=== PATIENT | female | born 1960 | race Caucasian/White ===

== ENCOUNTER 2020-05-02 09:01 | Outpatient (REF) | payer OTHER, SELFPAY ==
[2020-05-02 12:36] LABS: Alanine Aminotransferase 20 U/L (0-31); Albumin Level 4.2 g/dL (3.5-5.0); Alkaline Phosphatase 72 U/L (39-117); Anion Gap 11 (12-20); Aspartate Amino Transferase 18 U/L (5-31); Bilirubin Total 0.5 mg/dL (0.0-1.0); Blood Urea Nitrogen 16 mg/dL (9-16); Calcium 9.6 mg/dL (8.4-10.2); Carbon Dioxide 30 mmol/L (22-29); Chloride 103 mmol/L (96-108); Cholesterol 173 mg/dL; Estimated Glomerular Filt Rate > 60; Glucose Fasting 103 mg/dL (60-99); HDL Cholesterol 42 mg/dL; LDL Cholesterol Calculated 108 mg/dl; Potassium 5.1 mmol/l (3.3-5.1); Sodium 139 mmol/L (135-145); Total Protein 7.8 g/dL (6.5-8.0); Triglycerides 115 mg/dL
[2020-05-02 12:50] LABS: Thyroid Stimulating Hormone 1.82 uIU/mL (0.32-4.0)
== END 2020-05-02 09:02 | disposition home or self-care (01) ==
LOC: HO.WFDLDS 09:01
PROVIDERS: PCP Family Medicine; Visit Provider Family Medicine
DX: Z00.00 Encounter for general adult medical examination without abnormal findings (principal); F32.9 Major depressive disorder, single episode, unspecified; F41.9 Anxiety disorder, unspecified; K21.9 Gastro-esophageal reflux disease without esophagitis
CPT/HCPCS: 80053; 80061; 84443

== ENCOUNTER 2020-05-23 09:03 | Outpatient (REF) | payer OTHER, SELFPAY ==
--- NOTE | 2020-05-23 09:08 | MM_ITS ---
EXAMINATION: BONE DENSITOMETRY CLINICAL INDICATION: Encounter for screening for osteoporosis. COMPARISON: None (current study represents initial baseline exam). TECHNIQUE: Using a [employer] DXA System (software version: 13.1) manufactured by [employer], dual-energy x-ray absorptiometry was performed of the lumbar spine and left hip. The images are of good technical quality. Summary results are attached. FINDINGS: AP SPINE L2-L4 (excluding L1): The data of L1-L4 has been changed to exclude the L1 vertebral body, because degenerative changes at this level may cause overestimation of lumbar spine density. BMD 1.086 g/cm2, Z-score -0.6, T-score -1.0, normal. LEFT FEMUR, NECK: BMD 0.807 g/cm2, Z-score -1.0, T-score -1.7, osteopenia. LEFT FEMUR, TOTAL: BMD 1.010 g/cm2, Z-score 0.3, T-score 0.0, normal. IDENTIFIED RISK FACTORS: Menopause. HISTORY OF FRACTURE: None listed. MEDICATIONS: Calcium supplement and/or multivitamin. Vitamin D. MM/XR DEXA axial skeleton IMPRESSION: 1. DIAGNOSIS: Osteopenia based on the lowest T-score value of -1.7 in the femoral neck applying World Health Organization criteria. 2. 10-YEAR FRACTURE RISK PREDICTION, FRAX: Major osteoporotic fracture (clinical spine, forearm, hip or shoulder) 8.6%. Hip fracture 0.9%. 3. Treatment Recommendations: NOF guidelines recommend consideration for treatment in postmenopausal women and men age 50 and older presenting with the following: -A hip or vertebral (clinical or morphometric) fracture. -T-score less than or equal to -2.5 at the femoral neck or spine after appropriate evaluation to exclude secondary causes. -Low bone mass at the hip or spine and a 10-year fracture probability by FRAX of greater than or equal to 3% for hip fracture or greater than or equal to 20% for major osteoporotic fracture based on the [place] adapted WHO algorithm. 4. Other Recommendations: All treatment decisions require clinical judgment and consideration of individual patient factors, including patient preferences, comorbidities, previous drug use, risk factors not captured in the FRAX model (e.g. frailty, falls, vitamin D deficiency, increased bone turnover, interval significant decline in bone density) and possible under or overestimation of fracture risk by FRAX. Additional medical evaluation for secondary cause of low bone mineral density may be appropriate. FUTURE SCAN RECOMMENDATION: People with diagnosed cases of osteoporosis or at high risk for fracture should have regular bone mineral density tests. For patients eligible for Medicare, routine testing is allowed once every 2 years. The testing frequency can be increased to one year for patients who have rapidly progressing disease, those who are receiving or discontinuing medical therapy to restore bone mass, or have additional risk factors.
== END 2020-05-23 09:04 | disposition home or self-care (01) ==
LOC: HO.MAMMO 09:03
PROVIDERS: PCP Family Medicine; Visit Provider Family Medicine
DX: Z13.820 Encounter for screening for osteoporosis (principal); M85.88 Other specified disorders of bone density and structure, other site
CPT/HCPCS: 77080

== ENCOUNTER 2020-10-02 10:54 | Outpatient (REF) | payer OTHER, SELFPAY ==
[2020-10-02 13:33] LABS: MANUAL DIFF FLAG NO
[2020-10-02 13:35] LABS: Basophils Absolute Auto 0.1 X10*3/uL (0.0-0.2); Basophils Percent Auto 0.7 % (0-2); Eosinophils Absolute Auto 0.2 X10*3/uL (0.0-0.4); Eosinophils Percent Auto 2.2 % (0-4); Hematocrit 43.5 % (37-47); Hemoglobin 13.9 g/dl (12.0-16.0); Imm Gran Abs Auto 0.03 X10*3/uL (0.00-0.03); Imm Gran Pct Auto 0.3 % (0.0-0.4); Lymphocytes Absolute Auto 1.9 X10*3/uL (1.2-4.9); Lymphocytes Percent Auto 21.7 % (20-40); Mean Corpuscular Hemoglobin 27.9 pg (27.0-33.0); Mean Corpuscular Volume 87.2 fL (80-98); Mean Platelet Volume 9.4 fL (9.4-12.3); Monocytes Percent Auto 11.2 % (2-11); Neutrophils Absolute Auto 5.6 X10*3/uL (2.0-8.3); Neutrophils Percent Auto 63.9 % (45-73); Platelet Count 434 X10*3/uL (160-400); Red Blood Count 4.99 X10*6/uL (4.20-5.50); Red Cell Distribution Width 14.6 % (11.0-16.0); White Blood Count 8.7 X10*3/uL (4.8-10.8)
[2020-10-02 14:27] LABS: Alanine Aminotransferase 28 U/L (0-31); Albumin Level 4.3 g/dL (3.5-5.0); Alkaline Phosphatase 76 U/L (39-117); Anion Gap 11 (12-20); Aspartate Amino Transferase 20 U/L (5-31); Bilirubin Total 0.5 mg/dL (0.0-1.0); Blood Urea Nitrogen 12 mg/dL (9-16); Calcium 10.1 mg/dL (8.4-10.2); Carbon Dioxide 31 mmol/L (22-29); Chloride 103 mmol/L (96-108); Estimated Glomerular Filt Rate > 60; Glucose Random 93 mg/dL (60-115); Potassium 5.2 mmol/L (3.3-5.1); Sodium 140 mmol/L (135-145); Total Protein 7.9 g/dL (6.5-8.0)
[2020-10-02 14:36] LABS: TSH reflex Free T4 1.28 uIU/mL (0.32-4.0)
== END 2020-10-02 10:55 | disposition home or self-care (01) ==
LOC: HO.WFDLDS 10:54
PROVIDERS: Visit Provider Family Medicine
DX: Z00.00 Encounter for general adult medical examination without abnormal findings (principal); R53.83 Other fatigue
CPT/HCPCS: 36415; 80053; 84443; 85025

== ENCOUNTER 2020-11-20 08:00 | Outpatient (RCR) | payer OTHER, SELFPAY ==
--- NOTE | 2020-11-02 09:41 | MHC.PT.EP ---
[facility] [place] [facility] [place] [facility] [place] [address] Ernesto Gibbs [address] [phone] F: [phone] F: [phone] F: [phone] F: [phone] Physical Therapy Plan of Care Date of Evaluation: Date of Surgery: Diagnosis: vertigo Assessment: The patient was negative for BPPV. She had a normal VOR, and she had fairly normal balance. The patient has painful cervical mobility, and dizziness with cervical movement. She has poor sitting posture, and she spends a great amount of time at her computer desk. The patient will benefit from posture retraining, posture strengthening, and likely some manual work to decrease sub occipital tightness. Frequency and Duration: The patient will be seen 2x/week x 4 weeks. Short Term Goals: 2 weeks 1.Pt to able to demonstrate proper sitting posture with the use of a lumbar roll to decrease aggravating factors. 2.Pt to be able to demonstrate proper posture for common leisure activities such as crocheting and phone/tablet use. 3.For the patient to demonstrate proper upright sitting posture with use of the lumbar roll to improve compliance and carryover. Keeper Head Goals: 1. Pt to be able to return to normal PLOF without limiting pain. 2. Pt to be able to return to overhead reaching without pain or limitation. 3. Pt to be able to manage her pain with selected exercise and stretching regime. Treatment Plan: Modalities to reduce pain, spasms and effusion. Manual therapy to restore motion and function. Therapeutic exercise to improve strength and flexibility. Neuromuscular re-education for posture and balance. Therapeutic activities to return to functional activities of daily living. Electronically signed by: Mishel Morris PT DPT Please sign and return to therapist. Thank you for your referral.
== END 2020-11-20 14:00 | disposition home or self-care (01) ==
LOC: HO.PT 08:00
PROVIDERS: PCP Family Medicine; Visit Provider Family Medicine
DX: R42 Dizziness and giddiness (principal)
CPT/HCPCS: 97110; 97112; 97140; 97162

== ENCOUNTER 2022-01-16 08:56 | Outpatient (REF) | payer OTHER, SELFPAY ==
[2022-01-16 11:46] LABS: Hemoglobin 13.8 g/dl (12.0-16.0); Mean Corpuscular HGB Conc 32.1 g/dl (31.0-35.0); Mean Corpuscular Hemoglobin 27.7 pg (27.0-33.0); Mean Corpuscular Volume 86.2 fL (80.0-98.0); Mean Platelet Volume 9.5 fL (9.4-12.3); Platelet Count 453 X10*3/uL (160-400); Red Blood Count 4.99 X10*6/uL (4.20-5.50); Red Cell Distribution Width 14.8 % (11.0-16.0); White Blood Count 8.4 X10*3/uL (4.8-10.8)
[2022-01-16 12:25] LABS: Alanine Aminotransferase 20 U/L (0-31); Albumin Level 4.2 g/dL (3.5-5.0); Alkaline Phosphatase 76 U/L (39-117); Anion Gap 16 (12-20); Aspartate Amino Transferase 18 U/L (5-31); Bilirubin Total 0.5 mg/dL (0.0-1.0); Blood Urea Nitrogen 23 mg/dL (9-16); Calcium 9.5 mg/dL (8.4-10.2); Carbon Dioxide 26 mmol/L (22-29); Chloride 103 mmol/L (96-108); Cholesterol 178 mg/dL; Estimated Glomerular Filt Rate > 60; Glucose Fasting 114 mg/dL (60-99); HDL Cholesterol 41 mg/dL; LDL Cholesterol Calculated 118 mg/dl; Potassium 4.7 mmol/L (3.3-5.1); Sodium 140 mmol/L (135-145); Total Protein 7.9 g/dL (6.5-8.0); Triglycerides 95 mg/dL
[2022-01-16 12:36] LABS: TSH reflex Free T4 1.68 uIU/mL (0.32-4.0)
[2022-01-21 12:16] LABS: Vitamin D 25-OH, D2 <4 ng/mL; Vitamin D 25-OH, D3 33 ng/mL; Vitamin D 25-OH, Total 33 ng/mL (30-100)
== END 2022-01-16 08:57 | disposition home or self-care (01) ==
LOC: HO.WFDLDS 08:56
PROVIDERS: Visit Provider Hospitalist
DX: Z00.00 Encounter for general adult medical examination without abnormal findings (principal); R53.83 Other fatigue; Z13.220 Encounter for screening for lipoid disorders; Z13.29 Encounter for screening for other suspected endocrine disorder
CPT/HCPCS: 36415; 80053; 80061; 82306; 84443; 85027

== ENCOUNTER 2022-10-14 09:27 | Inpatient (IN) | payer OTHER, SELFPAY ==
--- NOTE | ~2022-10-14 | XR_ITS ---
Examination: Right elbow, right hand and right humerus. CLINICAL INDICATION: Fall and injury. COMPARISON: None. TECHNIQUE: Right elbow 2 views. Right hand 2 views. Right humerus 2 views. FINDINGS: RIGHT ELBOW: There is a comminuted fracture right proximal ulna with volar angulation. There is fracture of the radial head with anterior and lateral displacement. The humerus relatively appears intact. There is a large joint effusion. RIGHT HAND: There is no acute fracture, dislocation or subluxation right hand. Mild loss of PIP and DIP joint space is seen without periarticular spurring or loose bodies. RIGHT HUMERUS: There is no visible acute fracture or bony anomaly involving right humerus. The soft tissues are normal. XR/XR elbow RT 2V IMPRESSION: Comminuted fracture right proximal ulna. Fracture radial neck with complete anteriorly displaced right radial head. Moderate joint effusion.
--- NOTE | ~2022-10-14 | XR_ITS ---
Examination: Right elbow, right hand and right humerus. CLINICAL INDICATION: Fall and injury. COMPARISON: None. TECHNIQUE: Right elbow 2 views. Right hand 2 views. Right humerus 2 views. FINDINGS: RIGHT ELBOW: There is a comminuted fracture right proximal ulna with volar angulation. There is fracture of the radial head with anterior and lateral displacement. The humerus relatively appears intact. There is a large joint effusion. RIGHT HAND: There is no acute fracture, dislocation or subluxation right hand. Mild loss of PIP and DIP joint space is seen without periarticular spurring or loose bodies. RIGHT HUMERUS: There is no visible acute fracture or bony anomaly involving right humerus. The soft tissues are normal. XR/XR humerus RT IMPRESSION: Comminuted fracture right proximal ulna. Fracture radial neck with complete anteriorly displaced right radial head. Moderate joint effusion.
--- NOTE | ~2022-10-14 | FL_ITS ---
EXAMINATION: XR FLUOROSCOPY WITH IMAGES COMPARISON: Elbow radiographs 10/14/2022. CLINICAL INFORMATION: Right elbow open reduction internal fixation. TECHNIQUE: Fluoroscopy Supervised By: Dr. Zelalem Alfaro Fluoroscopy Time: 0.4 minutes. Cumulative Dose: 1.12 mGy. DAP: 0.0195 mGym2. Images: 3. FINDINGS: Imaging demonstrates a plate and screw overlying the ulna with a prosthetic radial head. Please see Dr. Zelalem Alfaro's report for full details. FL/FL guidance in OR IMPRESSION: Fluoroscopy and spot film imaging provided during open reduction internal fixation.
--- NOTE | ~2022-10-14 | XR_ITS ---
Examination: Right elbow, right hand and right humerus. CLINICAL INDICATION: Fall and injury. COMPARISON: None. TECHNIQUE: Right elbow 2 views. Right hand 2 views. Right humerus 2 views. FINDINGS: RIGHT ELBOW: There is a comminuted fracture right proximal ulna with volar angulation. There is fracture of the radial head with anterior and lateral displacement. The humerus relatively appears intact. There is a large joint effusion. RIGHT HAND: There is no acute fracture, dislocation or subluxation right hand. Mild loss of PIP and DIP joint space is seen without periarticular spurring or loose bodies. RIGHT HUMERUS: There is no visible acute fracture or bony anomaly involving right humerus. The soft tissues are normal. XR/XR hand RT 2V IMPRESSION: Comminuted fracture right proximal ulna. Fracture radial neck with complete anteriorly displaced right radial head. Moderate joint effusion.
--- NOTE | ~2022-10-14 | CT_ITS ---
EXAMINATION: CT ELBOW WITHOUT CONTRAST, RIGHT INDICATION: Fracture dislocation. COMPARISON: 10/14/2022 TECHNIQUE: Multidetector volumetric imaging was obtained through the right elbow without contrast. Multiplanar reformatted images in coronal and sagittal orientations were submitted. This CT examination was performed using dose optimization techniques as appropriate, variously including the following: *Automated exposure control *Adjustment of mA and/or kV according to patient size (this includes techniques or standardized protocols for targeted exams where dose is matched to indication/reason for exam; i.e. extremities or head) *Use of iterative reconstruction technique DLP: 104 mGy-cm FINDINGS: There is a transverse fracture of the proximal ulnar diaphysis occurring 2.5 cm distal to the coronoid process with vertex dorsal angulation. Articular surface appears intact. With exception of the tibia-fibula the coronoid process. Multiple small osseous fragments in the anterior aspect of the joint likely arises from a comminuted fracture at the tip of the coronoid process with involvement of the sublime tubercle. This fragment measures 2 x 0.4 x 0.3 cm and is displaced anteriorly by 2.3 cm. The radial head is markedly comminuted with dorsal dislocation of the proximal shaft fragment and displacement of the radial head fragments along the anterior aspect of the proximal shaft and lateral along the posterior margin of the capitellum. The distal humerus appears intact without an appreciable fracture. Of note, no epicondylar avulsion fractures are identified. Soft tissues are swollen around the elbow, most pronounced dorsally. Probable small joint effusion. CT/CT elbow RT wo IV con IMPRESSION: 1. Transverse fracture of the proximal ulnar diaphysis with vertex dorsal angulation. 2. Comminuted fracture coronoid process with involvement of the sublime tubercle. 3. Markedly comminuted radial head fracture with dislocation of the dominant radial head fragments and dorsal dislocation of the proximal shaft fragment.
[2022-10-14 09:30] VITALS: BP 137/62; BP 160/100; PULSE 85; PULSE 87; RESP 16; TEMP 36.6; O2SAT 93; O2SAT 96; BMI 36.7
--- NOTE | 2022-10-14 09:54 | ED.FALL ---
HPI - Fall General Chief Complaint: Fall Stated Complaint: fall, bloody nose,r arm deformity, collar, per ems Time Seen by Provider: 10/14/22 09:39 Source: patient Mode of arrival: EMS Limitations: no limitations History of Present Illness HPI Narrative: Pulled down the driveway by a dog. landed on face and right elbow. No syncope, no blood thinners, no LOC. NO vomiting. Not up to date with tetanous. complaint: fall Onset (ago): minute(s) Fall from: standing Place fall occurred: home Location of injury: face and other (right elbow) Related Data Home Medications Medication Instructions Recorded Confirmed melatonin 5 mg capsule mg PO 05/09/20 09/18/21 cholecalciferol (vitamin D3) 50 50 mcg PO DAILY 07/14/22 mcg (2,000 unit) capsule Previous Rx's Medication Instructions Recorded vitamin B comp and C no.3 15 mg-10 1 cap PO DAILY #90 caps 09/18/21 mg-50 mg-5 mg-300 mg capsule (B Complex Plus Vitamin C) fluoxetine 40 mg capsule 40 mg PO DAILY #90 caps 07/21/22 lansoprazole 30 mg capsule,delayed 30 mg PO DAILY #90 caps 09/22/22 release Allergies Allergy/AdvReac Type Severity Reaction Status Date / Time No Known Allergies Allergy Verified 10/14/22 09:40 Review of Systems Review of Systems: Yes all other systems are reviewed and are negative ENT: Comments: facial abrasion Musculoskeletal: Comments: elbow pain Neurologic: Denies Sensory deficit (Neuro) [facility] Social History Social History Housing: House Patient Tobacco Use Status: Never used Tobacco e-Cigarette/Vaping Use: Never Used Advance Directives: No Advance Directives Information Provided: Yes Cognitive needs: No Hearing needs: No Vision needs: Yes Physical Exam Vital Signs: Vital Signs: Last Vital Signs Temp 97.9 F 10/14/22 09:30 Pulse 87 10/14/22 09:30 Resp 16 10/14/22 09:30 BP 137/62 10/14/22 09:30 Pulse Ox 93 10/14/22 09:30 O2 Del Method Room Air 10/14/22 09:30 BMI result Body Mass Index 36.7 Const: Other: in pain Nutritional Appearance: average body habitus Orientation/consciousness: oriented to person and patient oriented x3 Limitations: no limitations HEENT: Other: abrasions to face, nasal bones nontender Head: Yes normal to inspection Ears: external ears normal General nose exam: Normal external nose present Mouth: Normal oral and palatal mucosa present and oropharynx normal Throat: Yes posterior oropharynx normal Eyes: General: appearance normal, both eyes and all related structures Neck: Other: supple, non tender Neck: Yes normal visual inspection Chest: Chest palpation & inspection: normal inspection of the chest Resp: Auscultation: clear to auscultation bilaterally Cardio: Jugular venous distension: no JVD Rate: regular rate Rhythm: regular rhythm Heart sounds: S1 normal heart sound present and S2 normal heart sound present GI: Inspection: Yes normal to inspection Palpation (GI): Soft to palpation, nontender and No hepatosplenomegaly present Auscultation: normal bowel sounds : General: Yes no CVA tenderness Back/Spine/Pelvis: Back: no CVA tenderness Skin: General skin exam: no rashes or lesions noted Neuro: General: oriented to person and patient oriented x3 Cranial nerves: Yes CN's II-XII intact bilaterally Motor exam (neuro): 5/5 motor strength present throughout Sensory Exam: No Sensory deficit (Neuro) Extrem: Other: right elbow swollen extremely tender Psych: Appearance: grossly normal Course Reevaluation(s) Reevaluation #1: patient with severe fracture dislocation of elbow, neurovascularly intact will admit to ortho Time: 11:17 Medical Decision Making Differential Diagnosis Differential Diagnoses: The differential diagnosis associated with the presentation includes (elbow fracture, elbow dislocation, nasal fracture) Admission/Observation Consideration of admission/observation: Escalation of care including admission/observation considered (upon arrival admission was considered) Consult Healthcare Provider Management of the patient was discussed with: [employer] Manager (orthopedic team was consulted) Independent Interpretation I performed an independent interpretation of an: Plain X-Ray (fracture dislocation of elbow) Independent Historian Clinical information obtained from an independent historian. History obtained from or confirmed by: Spouse ( gave history and discussed disposition of the patient) Discharge Plan Discharge Clinical Impression: Dislocation closed, elbow, Elbow fracture, right Patient Disposition: Admitted As Inpatient
[2022-10-14] MEDS: Morphine Sulfate 4 MG/ML CARTRIDGE IVPUSH (11:51)
[2022-10-14] MEDS: Acetaminophen 325 MG TABLET 975 MG PO (11:54)
[2022-10-14] MEDS: Diphth,Pertus(ACell),Tet Adult 0.5 ML SYRINGE IM (11:59)
[2022-10-14 12:23] LABS: MANUAL DIFF FLAG NO
[2022-10-14 12:27] LABS: Basophils Absolute Auto 0.1 X10*3/uL (0.0-0.2); Basophils Percent Auto 0.4 % (0-2); Eosinophils Percent Auto 0.2 % (0-4); Hemoglobin 13.9 g/dl (12.0-16.0); Imm Gran Abs Auto 0.08 X10*3/uL (0.00-0.03); Imm Gran Pct Auto 0.6 % (0.0-0.4); Lymphocytes Absolute Auto 0.8 X10*3/uL (1.2-4.9); Lymphocytes Percent Auto 5.7 % (20-40); Mean Corpuscular HGB Conc 30.9 g/dl (31.0-35.0); Mean Corpuscular Hemoglobin 27.9 pg (27.0-33.0); Mean Corpuscular Volume 90.4 fL (80.0-98.0); Monocytes Absolute Auto 0.6 X10*3/uL (0.1-1.2); Monocytes Percent Auto 4.5 % (2-11); Neutrophils Absolute Auto 12.4 x10*3/uL (2.0-8.3); Neutrophils Percent Auto 88.6 % (45-73); Platelet Count 355 X10*3/uL (160-400); Red Blood Count 4.98 X10*6/uL (4.20-5.50); Red Cell Distribution Width 14.8 % (11.0-16.0)
[2022-10-14 12:41] LABS: Anion Gap 12 (12-20); Blood Urea Nitrogen 21 mg/dL (9-16); Calcium 9.6 mg/dL (8.4-10.2); Carbon Dioxide 25 mmol/L (22-29); Chloride 105 mmol/L (96-108); Creatinine Clr Calc Pharmacy 97.7; Estimated Glomerular Filt Rate > 60; Glucose Random 124 mg/dL (60-115); Potassium 4.2 mmol/L (3.3-5.1); Sodium 138 mmol/L (135-145)
--- NOTE | 2022-10-14 13:29 | PHA.MEDREC ---
Pharmacy Consult ? Medication Reconciliation Pharmacy has completed the medication reconciliation. Pt was able to list her medications and doses. She states she went up on fluoxetine to 40 mg over the winter but came back down to 20 mg daily in the spring.
--- NOTE | 2022-10-14 14:29 | PM.HPOR ---
History of Present Illness History of Present Illness Date of Service: 10/14/22 <Maico Iglesias PA-C - Last Filed: 10/14/22 20:22> 10/15/22 <Zelalem Alfaro MD - Last Filed: 10/15/22 13:59> Chief complaint: Rt Elbow fx dislocation <Maico Iglesias PA-C - Last Filed: 10/14/22 20:22> Narrative: Kayla Ahn is a 62 year old female who presented to the ED with an injury to her right elbow. She states just prior to arrival she was walking her dog when the dog bolted and she fell onto her right elbow on the driveway. She states immediately she noticed deformity to the right elbow with significant pain. She was transported to the ED via EMS. While in the ED, xrays of the right elbow were performed which demonstrated a right elbow fracture/ dislocation. Orthopedics was consulted and the decision was made to admit her to the orthopedic service for surgical planning. She states she is right hand dominant. 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 She lives at home with her . PMH significant for GERD, anxiety/depression, prediabetes. While in the ED, the right elbow was reduced and placed in a posterior splint and sling. <Miaco Iglesias PA-C - Last Filed: 10/14/22 20:22> Review of Systems Review of Systems: per hpi <Maico Iglesias PA-C - Last Filed: 10/14/22 20:22> [facility] Past Medical History Medical History: Medical History (Updated 10/14/22 @ 16:13 by Lisette Hayes NP) Depression GERD (gastroesophageal reflux disease) <Maico Iglesias PA-C - Last Filed: 10/14/22 20:22> Surgical History Surgical History: Surgical History (Updated 10/15/22 @ 13:11 by Yamilet Beckford) H/O colonoscopy S/P laparoscopic surgery <Maico Iglesias PA-C - Last Filed: 10/14/22 20:22> Social History Social History: Social History Housing: House Patient Tobacco Use Status: Never used Tobacco e-Cigarette/Vaping Use: Never Used service: No Current occupational status: employed Cognitive needs: No Hearing needs: No Vision needs: Yes <Maico Iglesias PA-C - Last Filed: 10/14/22 20:22> Meds Allergies/Adverse reactions: Allergies Allergy/AdvReac Type Severity Reaction Status Date / Time No Known Allergies Allergy Verified 10/15/22 13:12 <Maico Iglesias PA-C - Last Filed: 10/14/22 20:22> Active Medications: Current Medications Acetaminophen (Acetaminophen 325 Mg Tablet) 650 mg PO Q6H PRN PRN Reason: Pain, Mild (Pain Scale 1-3) Docusate Sodium (Docusate Sodium 100 Mg Capsule) 100 mg PO BID KACIE Hydromorphone HCl (Hydromorphone Hcl 0.5 Mg/0.5 Ml Syringe) 0.25 mg IVPUSH Q4H PRN; Protocol PRN Reason: Pain, Severe (Pain Scale 7-10) Lactated Ringer's (Lr) 1,000 mls @ 100 mls/hr IVCONT .Q10H KACIE Ondansetron HCl (Ondansetron Hcl 4 Mg/2 Ml Vial) 4 mg IVPUSH Q8H PRN PRN Reason: Nausea and Vomiting Oxycodone HCl (Oxycodone Hcl Immed Release 5 Mg Tablet) 5 mg PO Q4H PRN PRN Reason: Pain, Moderate(Pain Scale 4-6) Oxycodone HCl (Oxycodone Hcl Er 10 Mg Tab.Er.12h) 10 mg PO BID KACIE Sodium Chloride (0.9 % Sodium Chloride Flush 3 Ml Syringe) 3 ml IVFLUSH QSHIFT KACIE <Maico Iglesias PA-C - Last Filed: 10/14/22 20:22> Home medications: Home Medications Medication Instructions Recorded Confirmed Last Taken Type melatonin 5 mg capsule 10 mg PO BEDTIME 05/09/20 10/15/22 10/13/22 History cholecalciferol (vitamin D3) 50 50 mcg PO DAILY 07/14/22 10/15/22 10/13/22 History mcg (2,000 unit) capsule calcium-magnesium 750 mg-465 mg 1 tab PO DAILY 10/14/22 10/15/22 10/13/22 History tablet cyanocobalamin (vitamin B-12) 1,000 mcg PO DAILY 10/14/22 10/15/22 10/13/22 History 1,000 mcg tablet (Vitamin B-12) fluoxetine 20 mg capsule 20 mg PO DAILY 10/14/22 10/15/22 Unknown History lansoprazole 30 mg capsule,delayed 30 mg PO DAILY@0630 10/14/22 10/15/22 10/14/22 History release <Maico Iglesias PA-C - Last Filed: 10/14/22 20:22> Physical Exam Vital Signs: Vital Signs: Last Vital Signs Temp 97.9 F 10/14/22 09:30 Pulse 87 10/14/22 09:30 Resp 16 10/14/22 09:30 BP 137/62 10/14/22 09:30 Pulse Ox 93 10/14/22 09:30 O2 Del Method Room Air 10/14/22 09:30 BMI result Body Mass Index 36.7 <Maico Iglesias PA-C - Last Filed: 10/14/22 20:22> Const: General: cooperative and no acute distress <Maico Iglesias PA-C - Last Filed: 10/14/22 20:22> Orientation/consciousness: patient oriented x3 <Maico Iglesias PA-C - Last Filed: 10/14/22 20:22> Resp: Effort & Inspection: normal respiratory effort and able to speak in complete sentences <Maico Iglesias PA-C - Last Filed: 10/14/22 20:22> Cardio: Peripheral pulses: Peripheral pulses 2+ throughout <Maico Iglesias PA-C - Last Filed: 10/14/22 20:22> Neuro: General: patient oriented x3 <Maico Iglesias PA-C - Last Filed: 10/14/22 20:22> Extrem: Other: Right elbow skin intact. There is significant swelling over the elbow into the forearm with tenderness along the fracture site. She has good sensation and function of the radial, median and ulnar nerve. Pulses present. <Maico Iglesias PA-C - Last Filed: 10/14/22 20:22> Results Labs Result Diagrams: 10/14/22 12:14 10/14/22 12:14 <Maico Iglesias PA-C - Last Filed: 10/14/22 20:22> Labs: Abnormal lab results 10/14/22 10/14/22 Range/Units 12:14 12:14 WBC 14.0 H (4.8-10.8) X10*3/uL MCHC 30.9 L (31.0-35.0) g/dl MPV 9.0 L (9.4-12.3) fL Immature Gran % (Auto) 0.6 H (0.0-0.4) % Neut % (Auto) 88.6 H (45-73) % Lymph % (Auto) 5.7 L (20-40) % Lymph # (Auto) 0.8 L (1.2-4.9) X10*3/uL Abs Immat Gran (auto) 0.08 H (0.00-0.03) X10*3/uL Absolute Neuts (auto) 12.4 H (2.0-8.3) x10*3/uL BUN 21 H (9-16) mg/dL Random Glucose 124 H (60-115) mg/dL H & H 10/14/22 Range/Units 12:14 Hgb 13.9 (12.0-16.0) g/dl Hct 45.0 (37.0-47.0) % All other labs normal. <SIVAN Rivero Last Filed: 10/14/22 20:22> Diagnostic results Elbow CT: report reviewed (CT elbow RT wo IV con IMPRESSION: 1. Transverse fracture of the proximal ulnar diaphysis with vertex dorsal angulation. 2. Comminuted fracture coronoid process with involvement of the sublime tubercle. 3. Markedly comminuted radial head fracture with dislocation of the dominant radial head fragme) and image reviewed <SIVAN Rivero Last Filed: 10/14/22 20:22> Assessment and Plan (1) Dislocation closed, elbow: Status: Acute <SIVAN Rivero Last Filed: 10/14/22 20:22> (2) Elbow fracture, right: Status: Acute <SIVAN Rivero Last Filed: 10/14/22 20:22> I discussed the case with Dr Alfaro who was available to meet the patient with me today at bedside and explained the extent of the injury to the patient and options available which include surgical intervention. I explained the procedure in detail along with the length of recovery and rehab course. I explained the risk, benefits and alternatives. Risk including, but not limited to infection, blood clots, bleeding, non union or malunion, instability and nerve/tissue damage to surrounding areas and need for further surgery. I answered all their questions and with their understanding they have consented to move forward with Operative Fixation of the RIght elbow . The patient will be T&S, med clearance obtained and NPO after midnight. <Maico Iglesias PA-C - Last Filed: 10/14/22 20:22> Time Spent With Patient Time: Total time managing care of this patient today ____ minutes. <Maico Iglesias PA-C - Last Filed: 10/14/22 20:22> Quality Stroke Does the patient have a stroke diagnosis?: No <Maico Iglesias PA-C - Last Filed: 10/14/22 20:22> VTE Prior VTE?: No <Maico Iglesias PA-C - Last Filed: 10/14/22 20:22> VTE Risk Level:: Surgical - moderate <Maico Iglesias PA-C - Last Filed: 10/14/22 20:22> VTE Device Contraindication: N/A - Device Ordered <Maico Iglesias PA-C - Last Filed: 10/14/22 20:22> VTE Drug Contraindication: Treatment Not Indicated <Maico Iglesias PA-C - Last Filed: 10/14/22 20:22> Procedures Date of Service Date of Service: 10/14/22 <Maico Iglesias PA-C - Last Filed: 10/14/22 20:22> 10/15/22 <Zelalem Alfaro MD - Last Filed: 10/15/22 13:59>
[2022-10-14] MEDS: Lactated Ringers 1,000 ML 100 ML IVCONT (14:45)
--- NOTE | 2022-10-14 16:04 | HO.PM.IMCN ---
History of Present Illness Data of Consult Service Date: 10/14/22 Requesting physician: Zelalem Alfaro Primary Care Provider: Leno Maurice MD Review of Systems Review of Systems: Denies any recent fever chills or decrease in appetite respiratory denies any shortness of breath coverage production cardiovascular denied chest pain gastrointestinal denies any dysphagia abdominal pain nausea vomiting or diarrhea genitourinary denies any dysuria frequency or hematuria musculoskeletal denies any joint pain or swelling neuropsych denies any weakness or seizures all other systems reviewed are negative [facility] Medical History (Updated 10/14/22 @ 16:13 by Lisette Hayes NP) Depression GERD (gastroesophageal reflux disease) Pertinent family history: No cardiac disease Surgical History (Updated 10/14/22 @ 16:14 by Lisette Hayes NP) No pertinent past surgical history Social History Housing: House Patient Tobacco Use Status: Never used Tobacco e-Cigarette/Vaping Use: Never Used Advance Directives: No Advance Directives Information Provided: Yes Cognitive needs: No Hearing needs: No Vision needs: Yes Meds Allergies Allergy/AdvReac Type Severity Reaction Status Date / Time No Known Allergies Allergy Verified 10/14/22 09:40 Active Medications: Current Medications Acetaminophen (Acetaminophen 325 Mg Tablet) 650 mg PO Q6H PRN PRN Reason: Pain, Mild (Pain Scale 1-3) Docusate Sodium (Docusate Sodium 100 Mg Capsule) 100 mg PO BID KACIE Hydromorphone HCl (Hydromorphone Hcl 0.5 Mg/0.5 Ml Syringe) 0.25 mg IVPUSH Q4H PRN; Protocol PRN Reason: Pain, Severe (Pain Scale 7-10) Lactated Ringer's (Lr) 1,000 mls @ 100 mls/hr IVCONT .Q10H KACIE Last Admin: 10/14/22 14:45 Dose: 100 mls/hr Ondansetron HCl (Ondansetron Hcl 4 Mg/2 Ml Vial) 4 mg IVPUSH Q8H PRN PRN Reason: Nausea and Vomiting Oxycodone HCl (Oxycodone Hcl Immed Release 5 Mg Tablet) 5 mg PO Q4H PRN PRN Reason: Pain, Moderate(Pain Scale 4-6) Oxycodone HCl (Oxycodone Hcl Er 10 Mg Tab.Er.12h) 10 mg PO BID [facility] Sodium Chloride (0.9 % Sodium Chloride Flush 3 Ml Syringe) 3 ml IVFLUSH QSHIFT [facility] Home Medications Medication Instructions Recorded Confirmed Last Taken Type melatonin 5 mg capsule 10 mg PO BEDTIME 05/09/20 10/14/22 10/13/22 History cholecalciferol (vitamin D3) 50 50 mcg PO DAILY 07/14/22 10/14/22 10/13/22 History mcg (2,000 unit) capsule calcium-magnesium 750 mg-465 mg 1 tab PO DAILY 10/14/22 10/14/22 10/13/22 History tablet cyanocobalamin (vitamin B-12) 1,000 mcg PO DAILY 10/14/22 10/14/22 10/13/22 History 1,000 mcg tablet (Vitamin B-12) fluoxetine 20 mg capsule 20 mg PO DAILY 10/14/22 10/14/22 Unknown History lansoprazole 30 mg capsule,delayed 30 mg PO DAILY@0630 10/14/22 10/14/22 10/14/22 History release Physical Exam Vital Signs and Narrative: Vital Signs: Last Vital Signs Temp 97.9 F 10/14/22 09:30 Pulse 87 10/14/22 09:30 Resp 16 10/14/22 09:30 BP 137/62 10/14/22 09:30 Pulse Ox 93 10/14/22 09:30 O2 Del Method Room Air 10/14/22 09:30 BMI result Body Mass Index 36.7 Appearing in no acute distress head is normocephalic atraumatic eyes pupils are PERRLA sclera is anicteric mouth throat mucous membranes are intact and moist neck is supple no lymphadenopathy, no JVD noted lung sounds are clear to auscultation heart regular rate rhythm, clear S1, S2 positive bowel sounds, abdomen is soft, nontender neuro patient is alert x3, no focal deficits Right arm cling in place Results Labs 10/14/22 12:14 10/14/22 12:14 Labs: Laboratory Results - last 24 hr 10/14/22 10/14/22 10/14/22 12:14 12:14 15:25 MCV 90.4 MCH 27.9 MCHC 30.9 L RDW 14.8 Plt Count 355 MPV 9.0 L Immature Gran % (Auto) 0.6 H Neut % (Auto) 88.6 H Lymph % (Auto) 5.7 L [place] % (Auto) 4.5 Eos % (Auto) 0.2 Baso % (Auto) 0.4 Lymph # (Auto) 0.8 L [place] # (Auto) 0.6 Eos # (Auto) 0.0 Baso # (Auto) 0.1 Abs Immat Gran (auto) 0.08 H Absolute Neuts (auto) 12.4 H Absolute Nucleated RBC 0.000 Nucleated RBC % (auto) 0.0 Anion Gap 12 Estim Creat Clear Calc 97.7 Estimated GFR > 60 Random Glucose 124 H Calcium 9.6 Blood Type B Positive Imaging Radiologist's Impressions: Impressions Elbow X-Ray 10/14/22 10:40 IMPRESSION: Comminuted fracture right proximal ulna. Fracture radial neck with complete anteriorly displaced right radial head. Moderate joint effusion. Hand X-Ray 10/14/22 10:40 IMPRESSION: Comminuted fracture right proximal ulna. Fracture radial neck with complete anteriorly displaced right radial head. Moderate joint effusion. Humerus X-Ray 10/14/22 10:40 IMPRESSION: Comminuted fracture right proximal ulna. Fracture radial neck with complete anteriorly displaced right radial head. Moderate joint effusion. Elbow CT 10/14/22 13:19 IMPRESSION: 1. Transverse fracture of the proximal ulnar diaphysis with vertex dorsal angulation. 2. Comminuted fracture coronoid process with involvement of the sublime tubercle. 3. Markedly comminuted radial head fracture with dislocation of the dominant radial head fragments and dorsal dislocation of the proximal shaft fragment. Assessment and Plan (1) Dislocation closed, elbow: Status: Acute Plan 62 year old women admitted by general surgery and Right Elbow fracture/dislocation paln for surgery tomorrow pain management NPO after midnight Mental health continue home medications GERD PPI Leukocytosis likely reactive to injury DVT prophylaxis as per admitting team Time Spent With Patient Time: Total time managing care of this patient today ____ minutes.
[2022-10-14 20:00] VITALS: BP 170/86; PULSE 90; RESP 18; TEMP 36.4; O2SAT 96
[2022-10-14] MEDS: oxyCODONE HCl ER 10 MG TAB.ER.12H PO (21:28)
[2022-10-14] MEDS: Docusate Sodium 100 MG CAPSULE PO (21:28)
[2022-10-14] MEDS: HYDROmorphone HCl 0.5 MG/0.5 ML SYRINGE 0.25 MG IVPUSH (23:57)
[2022-10-15] VITALS (8 sets, daily range): BP systolic 124–169; BP diastolic 62–77; PULSE 83–91; RESP 16–20; TEMP 36–37.1; O2SAT 95–99
[2022-10-15] MEDS: oxyCODONE HCl Immed Release 5 MG TABLET PO (02:08)
[2022-10-15] MEDS: Lactated Ringers 1,000 ML 100 ML IVCONT ×2 (02:18→18:39)
[2022-10-15 06:32] LABS: MANUAL DIFF FLAG NO
[2022-10-15 06:59] LABS: Anion Gap 14 (12-20); Blood Urea Nitrogen 14 mg/dL (9-16); Calcium 9.2 mg/dL (8.4-10.2); Carbon Dioxide 22 mmol/L (22-29); Chloride 106 mmol/L (96-108); Creatinine Clr Calc Pharmacy 103.3; Estimated Glomerular Filt Rate > 60; Glucose Fasting 117 mg/dL (60-99); Potassium 4.2 mmol/L (3.3-5.1); Sodium 138 mmol/L (135-145)
[2022-10-15 07:02] LABS: Basophils Percent Auto 0.2 % (0-2); Eosinophils Absolute Auto 0.1 X10*3/uL (0.0-0.4); Eosinophils Percent Auto 0.8 % (0-4); Hematocrit 38.7 % (37.0-47.0); Hemoglobin 12.5 g/dl (12.0-16.0); Imm Gran Abs Auto 0.04 X10*3/uL (0.00-0.03); Imm Gran Pct Auto 0.3 % (0.0-0.4); Lymphocytes Absolute Auto 1.8 X10*3/uL (1.2-4.9); Lymphocytes Percent Auto 14.9 % (20-40); Mean Corpuscular HGB Conc 32.3 g/dl (31.0-35.0); Mean Corpuscular Hemoglobin 27.4 pg (27.0-33.0); Mean Corpuscular Volume 84.7 fL (80.0-98.0); Mean Platelet Volume 8.9 fL (9.4-12.3); Monocytes Absolute Auto 1.2 X10*3/uL (0.1-1.2); Monocytes Percent Auto 9.9 % (2-11); Neutrophils Absolute Auto 8.9 x10*3/uL (2.0-8.3); Neutrophils Percent Auto 73.9 % (45-73); Platelet Count 404 X10*3/uL (160-400); Red Blood Count 4.57 X10*6/uL (4.20-5.50); Red Cell Distribution Width 14.9 % (11.0-16.0)
[2022-10-15] MEDS: oxyCODONE HCl ER 10 MG TAB.ER.12H PO ×2 (07:27→20:51)
--- NOTE | 2022-10-15 07:42 | PC.NURSE ---
Refusing High Fall Risk interventions.
--- NOTE | 2022-10-15 09:17 | MHC.CM.PN ---
Female 62 S/P Fall Elbow FX She lives w spouse. She is independent with all functional mobility. She is planned for surgery this afternoon with ORTHO. She declined the offer to document a HCP. She has been vaxxed x2. DP home with family assist and transport.
[2022-10-15] MEDS: HYDROmorphone HCl 0.5 MG/0.5 ML SYRINGE 0.25 MG IVPUSH ×2 (09:52→22:44)
--- NOTE | 2022-10-15 13:43 | HO.ANESPROP2 ---
[facility] Active Problems Active Problems: All Active Problems (Updated 10/14/22 @ 16:13 by Lisette Hayes NP) Annual physical exam (Acute) Screening for colon cancer (Acute) Screening for breast cancer (Acute) Screening for cervical cancer (Acute) Screening for osteoporosis (Acute) Anxiety (Acute) GERD (gastroesophageal reflux disease) (Acute) Elevated fasting glucose (Acute) Prediabetes (Acute) Postmenopausal (Acute) Vertigo (Acute) Neck strain (Acute) Fatigue (Acute) Anxiety with depression (Acute) Chronic GERD (Acute) Normal physical exam (Acute) BMI 36.0-36.9,adult (Acute) BMI 35.0-35.9,adult (Acute) Dislocation closed, elbow (Acute) Elbow fracture, right (Acute) Past Medical History Medical History (Updated 10/14/22 @ 16:13 by Lisette Hayes NP) Depression GERD (gastroesophageal reflux disease) Family History Family history of problems with anesthesia: No Surgical History Surgical History (Updated 10/15/22 @ 13:11 by Yamilet Beckford) H/O colonoscopy S/P laparoscopic surgery History of Problems with Anesthesia: No Social History Social History Housing: House Patient Tobacco Use Status: Never used Tobacco e-Cigarette/Vaping Use: Never Used service: No Current occupational status: employed Cognitive needs: No Hearing needs: No Vision needs: Yes Meds Allergies Allergy/AdvReac Type Severity Reaction Status Date / Time No Known Allergies Allergy Verified 10/15/22 13:12 Active Medications: Current Medications Acetaminophen (Acetaminophen 325 Mg Tablet) 650 mg PO Q6H PRN PRN Reason: Pain, Mild (Pain Scale 1-3) Docusate Sodium (Docusate Sodium 100 Mg Capsule) 100 mg PO BID [facility] Last Admin: 10/15/22 07:31 Dose: Not Given Hydromorphone HCl (Hydromorphone Hcl 0.5 Mg/0.5 Ml Syringe) 0.25 mg IVPUSH Q4H PRN; Protocol PRN Reason: Pain, Severe (Pain Scale 7-10) Last Admin: 10/15/22 09:52 Dose: 0.25 mg Lactated Ringer's (Lr) 1,000 mls @ 100 mls/hr IVCONT .Q10H [facility] Last Infusion: 10/15/22 07:30 Dose: 100 mls/hr Ondansetron HCl (Ondansetron Hcl 4 Mg/2 Ml Vial) 4 mg IVPUSH Q8H PRN PRN Reason: Nausea and Vomiting Oxycodone HCl (Oxycodone Hcl Immed Release 5 Mg Tablet) 5 mg PO Q4H PRN PRN Reason: Pain, Moderate(Pain Scale 4-6) Last Admin: 10/15/22 02:08 Dose: 5 mg Oxycodone HCl (Oxycodone Hcl Er 10 Mg Tab.Er.12h) 10 mg PO BID [facility] Last Admin: 10/15/22 07:27 Dose: 10 mg Sodium Chloride (0.9 % Sodium Chloride Flush 3 Ml Syringe) 3 ml IVFLUSH QSHIFT [facility] Last Admin: 10/15/22 11:16 Dose: Not Given Home Medications Medication Instructions Recorded Confirmed Last Taken Type melatonin 5 mg capsule 10 mg PO BEDTIME 05/09/20 10/15/22 10/13/22 History cholecalciferol (vitamin D3) 50 50 mcg PO DAILY 07/14/22 10/15/22 10/13/22 History mcg (2,000 unit) capsule calcium-magnesium 750 mg-465 mg 1 tab PO DAILY 10/14/22 10/15/22 10/13/22 History tablet cyanocobalamin (vitamin B-12) 1,000 mcg PO DAILY 10/14/22 10/15/22 10/13/22 History 1,000 mcg tablet (Vitamin B-12) fluoxetine 20 mg capsule 20 mg PO DAILY 10/14/22 10/15/22 Unknown History lansoprazole 30 mg capsule,delayed 30 mg PO DAILY@0630 10/14/22 10/15/22 10/14/22 History release Exam Exam Date and Time: October 15, 2022 1343 Height,Weight and Vital Signs: Height 5 ft 7 in Weight 106.3 kg Last Vital Signs Temp 98.7 F 10/15/22 13:14 Pulse 84 10/15/22 13:14 Resp 16 10/15/22 13:14 BP 147/77 H 10/15/22 13:14 Pulse Ox 98 10/15/22 13:14 O2 Del Method Room Air 10/15/22 13:14 Pertinent Lab Results Pertinent Lab Results: Laboratory Tests 10/14/22 10/14/22 10/14/22 12:14 12:14 15:25 WBC 14.0 H RBC 4.98 Hgb 13.9 Hct 45.0 MCV 90.4 MCH 27.9 MCHC 30.9 L RDW 14.8 Plt Count 355 MPV 9.0 L Immature Gran % (Auto) 0.6 H Neut % (Auto) 88.6 H Lymph % (Auto) 5.7 L [place] % (Auto) 4.5 Eos % (Auto) 0.2 Baso % (Auto) 0.4 Lymph # (Auto) 0.8 L [place] # (Auto) 0.6 Eos # (Auto) 0.0 Baso # (Auto) 0.1 Abs Immat Gran (auto) 0.08 H Absolute Neuts (auto) 12.4 H Absolute Nucleated RBC 0.000 Nucleated RBC % (auto) 0.0 Sodium 138 Potassium 4.2 Chloride 105 Carbon Dioxide 25 Anion Gap 12 BUN 21 H Creatinine 0.73 Estim Creat Clear Calc 97.7 Estimated GFR > 60 Random Glucose 124 H Fasting Glucose Calcium 9.6 Blood Type B Positive Antibody Screen NEGATIVE 10/15/22 10/15/22 06:26 06:26 WBC 12.0 H RBC 4.57 Hgb 12.5 Hct 38.7 MCV 84.7 D MCH 27.4 MCHC 32.3 RDW 14.9 Plt Count 404 H MPV 8.9 L Immature Gran % (Auto) 0.3 Neut % (Auto) 73.9 H Lymph % (Auto) 14.9 L [place] % (Auto) 9.9 Eos % (Auto) 0.8 Baso % (Auto) 0.2 Lymph # (Auto) 1.8 [place] # (Auto) 1.2 Eos # (Auto) 0.1 Baso # (Auto) 0.0 Abs Immat Gran (auto) 0.04 H Absolute Neuts (auto) 8.9 H Absolute Nucleated RBC 0.000 Nucleated RBC % (auto) 0.0 Sodium 138 Potassium 4.2 Chloride 106 Carbon Dioxide 22 Anion Gap 14 BUN 14 Creatinine 0.69 Estim Creat Clear Calc 103.3 Estimated GFR > 60 Random Glucose Fasting Glucose 117 H Calcium 9.2 Blood Type Antibody Screen Airway Mallampati Class: II TM Dist: >3cm Neck ROM: Limited Heart: rrr Lungs: cta Assessment and Plan Assessment Anesthesia Assessment: Anesthesia Plan Discussed Final Anesthetic Review Family History of Problems with Anesthesia: No History of Problems with Anesthesia: No NPO: Yes ASA Class: III Final Preanesthetic Review: No Changes in Pt Med Stat, Meds/Allgs Chart Reviewed, Consent Obtained/Reviewed and Anes Risks/Benef Reviewed Patient Risk: Intermediate Procedure Risk: Intermediate Anesthetic Plan Anesthetic Plan: GA and Regional Block Disposition: Standard PACU
--- NOTE | 2022-10-15 17:21 | P.BOP_ITS ---
Brief Operative Note Date of Service: 10/15/22 Pre-op diagnosis: Right elbow fracture dislocation Post-op diagnosis: same Procedure: 2 ORIF olecranon 2- Radial head arthroplasty 3-ORIF coronoid Implants: Styrker olecranon plate eirc 7.5x20 RHA 2.0 fiber wire and Mccall [employer] Nephew Helacoil 4.75 double loaded suture anchor Surgeon: Zelalem Alfaro MD Was an Percussion Instrument Repairer used for this Procedure?: Yes Percussion Instrument Repairer: Maico Iglesias Estimated blood loss (mL): 150 Tourniquet time (min): 120 IV fluids (mL): 1,200 Pathology: other Condition: stable Disposition: PACU
--- NOTE | 2022-10-15 18:45 | PC.NURSE ---
Pt back from surgery, A&Ox3, no c/o pain at this time. Cast and brace noted on RUE. VSS. Lungs clear, no c/o chest pain. c/o nausea.
[2022-10-15] MEDS: Docusate Sodium 100 MG CAPSULE PO (20:52)
[2022-10-15] MEDS: 0.9 % Sodium Chloride Flush 3 ML SYRINGE IVFLUSH (20:52)
[2022-10-15] MEDS: Melatonin 3 MG TABLET 9 MG PO (22:47)
[2022-10-16] MEDS: Acetaminophen 325 MG TABLET 650 MG PO (00:25)
[2022-10-16] MEDS: oxyCODONE HCl Immed Release 5 MG TABLET PO ×4 (00:25→16:16)
[2022-10-16 03:02] VITALS: BP 131/59; PULSE 98; RESP 17; TEMP 36.7; O2SAT 96
[2022-10-16] MEDS: HYDROmorphone HCl 0.5 MG/0.5 ML SYRINGE 0.25 MG IVPUSH ×4 (03:14→19:20)
[2022-10-16] MEDS: Omeprazole 20 MG CAPSULE.DR PO (05:52)
[2022-10-16] MEDS: Lactated Ringers 1,000 ML 100 ML IVCONT (06:00)
[2022-10-16 06:41] LABS: Basophils Percent Auto 0.2 % (0-2); Eosinophils Percent Auto 0.2 % (0-4); Hematocrit 36.8 % (37.0-47.0); Hemoglobin 11.9 g/dl (12.0-16.0); Imm Gran Abs Auto 0.07 X10*3/uL (0.00-0.03); Imm Gran Pct Auto 0.4 % (0.0-0.4); Lymphocytes Percent Auto 6.2 % (20-40); MANUAL DIFF FLAG SCAN; Mean Corpuscular HGB Conc 32.3 g/dl (31.0-35.0); Mean Corpuscular Hemoglobin 27.9 pg (27.0-33.0); Mean Corpuscular Volume 86.4 fL (80.0-98.0); Mean Platelet Volume 9.5 fL (9.4-12.3); Monocytes Absolute Auto 1.7 X10*3/uL (0.1-1.2); Monocytes Percent Auto 10.3 % (2-11); Neutrophils Absolute Auto 13.9 x10*3/uL (2.0-8.3); Neutrophils Percent Auto 82.7 % (45-73); Platelet Count 387 X10*3/uL (160-400); Red Blood Count 4.26 X10*6/uL (4.20-5.50); Red Cell Distribution Width 15.2 % (11.0-16.0); SCAN SMEAR FLAG 1; White Blood Count 16.8 X10*3/uL (4.8-10.8)
[2022-10-16 06:57] LABS: Anion Gap 10 (12-20); Blood Urea Nitrogen 11 mg/dL (9-16); Calcium 8.8 mg/dL (8.4-10.2); Carbon Dioxide 25 mmol/L (22-29); Chloride 104 mmol/L (96-108); Creatinine Clr Calc Pharmacy 101.8; Estimated Glomerular Filt Rate > 60; Glucose Fasting 157 mg/dL (60-99); Potassium 4.3 mmol/L (3.3-5.1); Sodium 135 mmol/L (135-145)
[2022-10-16 07:01] LABS: SLIDE REVIEW VERIFIED
[2022-10-16 07:39] VITALS: BP 131/59; PULSE 98; O2SAT 96
[2022-10-16] MEDS: oxyCODONE HCl ER 10 MG TAB.ER.12H PO ×2 (07:51→20:15)
[2022-10-16] MEDS: FLUoxetine HCl 20 MG CAPSULE PO (07:51)
[2022-10-16 08:00] VITALS: BP 138/64; PULSE 90; RESP 20; TEMP 37.2; O2SAT 95
--- NOTE | 2022-10-16 11:04 | HO.POSTANES ---
Post Anesthesia Evaluation Post Anesthesia Evaluation Date of Service: 10/16/22 Vital Signs: Vital Signs Temp Pulse Resp BP Pulse Ox O2 Del Method 10/16/22 08:00 98.9 F 90 20 138/64 95 Room Air 10/16/22 07:39 98 131/59 L 96 10/16/22 03:02 98.1 F 98 17 131/59 L 96 Room Air Anesthesia: Nerve Block and General Mental Status: Awake Pain Control: Satisfactory Nausea/Vomiting: None Hydration: Adequate Anesthesia-Related Issues: No Anes. Related Issues
[2022-10-16 15:51] VITALS: BP 145/60; PULSE 99; RESP 20; TEMP 36.6; O2SAT 99
[2022-10-16 19:16] VITALS: BP 150/65; PULSE 92; RESP 18; TEMP 37.3; O2SAT 96
[2022-10-16] MEDS: Melatonin 3 MG TABLET 9 MG PO (20:15)
[2022-10-16] MEDS: Docusate Sodium 100 MG CAPSULE PO (20:15)
--- NOTE | 2022-10-16 21:42 | PM.PNORT ---
Subjective Subjective Date of Service: 10/16/22 Principal diagnosis: right elbow fracture/dislocation Interval history: POD#1 No overnight events AFVSS Physical Exam Vital Signs: Vital Signs: Last Vital Signs Temp 99.1 F 10/16/22 19:16 Pulse 92 10/16/22 19:16 Resp 18 10/16/22 19:16 BP 150/65 H 10/16/22 19:16 Pulse Ox 96 10/16/22 19:16 O2 Del Method Room Air 10/16/22 19:16 O2 Flow Rate 3 10/15/22 17:59 BMI result Body Mass Index 36.7 Extrem: Other: splint intact Firing EPL/IO/FDP SILT R hand Procedures Date of Service Date of Service: 10/16/22 Progress Note: A&P Assessment and plan (1) Dislocation closed, elbow: Status: Acute Assessment and Plan: continue sling. recovering from fall and feels unstable walking pain not controlled dispo home tomorrow PT/OT (2) Elbow fracture, right: Status: Acute (3) Neck strain: Status: Acute Time Spent With Patient Time: Total time managing care of this patient today ____ minutes. Quality Stroke Does the patient have a stroke diagnosis?: No VTE Prior VTE?: No VTE Risk Level:: Surgical - moderate VTE Device Contraindication: N/A - Device Ordered VTE Drug Contraindication: Treatment Not Indicated
[2022-10-16] MEDS: 0.9 % Sodium Chloride Flush 3 ML SYRINGE IVFLUSH (23:13)
[2022-10-17] MEDS: Acetaminophen 325 MG TABLET 650 MG PO ×3 (01:39→13:29)
[2022-10-17] MEDS: oxyCODONE HCl Immed Release 5 MG TABLET PO ×3 (01:39→13:28)
[2022-10-17 03:48] VITALS: BP 130/71; PULSE 87; RESP 17; TEMP 36.5; O2SAT 94
[2022-10-17] MEDS: Omeprazole 20 MG CAPSULE.DR PO (05:42)
[2022-10-17 07:16] VITALS: BP 135/68; PULSE 84; RESP 18; TEMP 36.1; O2SAT 97
[2022-10-17] MEDS: oxyCODONE HCl ER 10 MG TAB.ER.12H PO (07:16)
[2022-10-17] MEDS: Docusate Sodium 100 MG CAPSULE PO (07:17)
[2022-10-17] MEDS: FLUoxetine HCl 20 MG CAPSULE PO (07:17)
[2022-10-17] MEDS: 0.9 % Sodium Chloride Flush 3 ML SYRINGE IVFLUSH (07:17)
[2022-10-17 07:31] LABS: Basophils Absolute Auto 0.1 X10*3/uL (0.0-0.2); Basophils Percent Auto 0.3 % (0-2); Eosinophils Absolute Auto 0.1 X10*3/uL (0.0-0.4); Eosinophils Percent Auto 0.5 % (0-4); Hematocrit 37.4 % (37.0-47.0); Imm Gran Abs Auto 0.12 X10*3/uL (0.00-0.03); Imm Gran Pct Auto 0.8 % (0.0-0.4); Lymphocytes Percent Auto 12.5 % (20-40); MANUAL DIFF FLAG SCAN; Mean Corpuscular HGB Conc 32.1 g/dl (31.0-35.0); Mean Corpuscular Hemoglobin 27.9 pg (27.0-33.0); Mean Platelet Volume 9.5 fL (9.4-12.3); Monocytes Absolute Auto 1.9 X10*3/uL (0.1-1.2); Monocytes Percent Auto 12.1 % (2-11); Neutrophils Absolute Auto 11.5 x10*3/uL (2.0-8.3); Neutrophils Percent Auto 73.8 % (45-73); Platelet Count 376 X10*3/uL (160-400); Red Cell Distribution Width 14.9 % (11.0-16.0); SCAN SMEAR FLAG 1; White Blood Count 15.6 X10*3/uL (4.8-10.8)
[2022-10-17 08:00] LABS: SLIDE REVIEW VERIFIED
[2022-10-17 08:28] LABS: Anion Gap 14 (12-20); Blood Urea Nitrogen 8 mg/dL (9-16); Calcium 8.8 mg/dL (8.4-10.2); Carbon Dioxide 25 mmol/L (22-29); Chloride 103 mmol/L (96-108); Creatinine Clr Calc Pharmacy 109.7; Estimated Glomerular Filt Rate > 60; Glucose Fasting 114 mg/dL (60-99); Potassium 3.9 mmol/L (3.3-5.1); Sodium 138 mmol/L (135-145)
--- NOTE | 2022-10-17 08:41 | PM.DS ---
DS: Providers Provider Date of Service: 10/17/22 Date of admission: 10/14/22 14:07 Primary care physician: Leno Maurice MD Consults: 10/14/22 14:07 Consult to Hospitalist Routine Comment: Consulting Provider: Hospitalist Reason For Exam: pre op clearance DS: Diagnosis Discharge Diagnosis (1) Dislocation closed, elbow: Status: Acute (2) Elbow fracture, right: Status: Acute (3) Neck strain: Status: Acute DS: Summary Hospital Course Hospital Course: The patient underwent a successful ORIF ulnar and coracoid with radial head arthroplasty on 10/15/22, was transferred to PACU and then to the floor to recover. POD 1 she received Physical Therapy and occupational therapy services. No overnight events. Vitals and labs remained stable. Splint should remain intact at all times. Ok to work on hand/finger ROM. The plan is to be discharged home. Time Spent with Patient Time attestation: Total time managing care of this patient today ____ minutes. Discharge coordination time: Less than 30 minutes Quality: Safe Use of Opioids Does Pt have an Active Cancer Diagnosis on the Problem List?: No Quality: Stroke Does the patient have a stroke diagnosis?: No Physical Exam Vital Signs: Vital Signs: Last Vital Signs Temp 97 F 10/17/22 07:16 Pulse 84 10/17/22 07:16 Resp 18 10/17/22 07:16 BP 135/68 10/17/22 07:16 Pulse Ox 97 10/17/22 07:16 O2 Del Method Room Air 10/17/22 07:16 O2 Flow Rate 3 10/15/22 17:59 BMI result Body Mass Index 36.7 Extrem: Other: splint intact Firing EPL/IO/FDP SILT R hand DS: Data Data Completed and Pending Labs on day of discharge: Laboratory Results - last 24 hr 10/17/22 10/17/22 06:09 06:09 WBC 15.6 H RBC 4.30 Hgb 12.0 Hct 37.4 MCV 87.0 MCH 27.9 MCHC 32.1 RDW 14.9 Plt Count 376 MPV 9.5 Immature Gran % (Auto) 0.8 H Neut % (Auto) 73.8 H Lymph % (Auto) 12.5 L [place] % (Auto) 12.1 H Eos % (Auto) 0.5 Baso % (Auto) 0.3 Lymph # (Auto) 2.0 [place] # (Auto) 1.9 H Eos # (Auto) 0.1 Baso # (Auto) 0.1 Abs Immat Gran (auto) 0.12 H Absolute Neuts (auto) 11.5 H Absolute Nucleated RBC 0.000 Nucleated RBC % (auto) 0.0 Smear Tech's Comments VERIFIED Sodium 138 Potassium 3.9 Chloride 103 Carbon Dioxide 25 Anion Gap 14 BUN 8 L Creatinine 0.65 Estim Creat Clear Calc 109.7 Estimated GFR > 60 Fasting Glucose 114 H Calcium 8.8 Discharge Plan Discharge Anticipated Discharge Date/Time: 10/17/22 08:25 Patient Disposition: Home, Self-Care Discharge Diagnosis: ORIF RT ELBOW Referrals: Maico Iglesias PA-C [Physician Energy Control Officer] - 1 Week (10/20/22 2:15 [facility] Maico Iglesias PA-C) Discharge Medications: New acetaminophen 325 mg Tablet 650 mg PO Q6H PRN (Reason: Pain, Mild (Pain Scale 1-3)) 30 Days Qty: 240 0RF docusate sodium 100 mg Capsule 100 mg PO BID 14 Days Qty: 28 0RF oxycodone 5 mg Tablet 5 mg PO Q4H PRN (Reason: Pain, Moderate(Pain Scale 4-6)) 7 Days Qty: 42 0RF Rx Instructions: Partial Fill upon patient request. Continued cyanocobalamin (vitamin B-12) [Vitamin B-12] 1,000 mcg Tablet 1,000 mcg PO DAILY calcium-magnesium 750-465 mg Tablet 1 tab PO DAILY lansoprazole 30 mg capsule,delayed release(DR/EC) 30 mg PO DAILY@0630 fluoxetine 20 mg capsule 20 mg PO DAILY melatonin 5 mg capsule 10 mg PO BEDTIME cholecalciferol (vitamin D3) 50 mcg (2,000 unit) capsule 50 mcg PO DAILY Discharge Orders: Discharge Order (Routine); Ordered 10/17/22 Ordered By: Maico Iglesias Diet: Regular diet Activity on Discharge: Use Splints or Immobilizers Stand Alone Forms: Patient Portal Discharge page Care Plan Goals: Restore function of joint Health Concerns: None Plan of Treatment: Pain mgmnt Sling Splint Assessment: Keep splint clean, dry and intact Elevate the arm on pillows when resting and sleeping Perform Hand and wrist ROM-making and fist and opening fingers Call the office if there are any questions or concerns. If splint is too tight or too loose. If it becomes saturated. Follow up with our office in 1 weeks
--- NOTE | 2022-10-17 10:40 | MHC.CM.PN ---
Patient is discharged to home today self care. Her spouse will give her a ride home.
[2022-10-17] MEDS: HYDROmorphone HCl 0.5 MG/0.5 ML SYRINGE 0.25 MG IVPUSH (11:23)
--- NOTE | 2022-10-19 11:52 | W.PM.OPN ---
Operative Note Operative Note Date of Service: 10/19/22 Narrative: Date of Service: 10/15/22 Pre-op diagnosis: Right elbow fracture dislocation Post-op diagnosis: same Procedure: 2 ORIF olecranon 2- Radial head arthroplasty 3-ORIF coronoid Implants: Beaver olecranon plate Graciela 7.5x20 RHA 2.0 fiber wire and Mccall [employer] Nephew Helacoil 4.75 double loaded suture anchor Surgeon: Zelalem Alfaro MD Was an Bucket Wash Operator used for this Procedure?: Yes Bucket Wash Operator: Maico Iglesias Estimated blood loss (mL): 150 Tourniquet time (min): 120 IV fluids (mL): 1,200 Pathology: other Condition: stable Disposition: PACU Procedure in detail: Patient was brought to the operating room and placed supine on the surgical table. She was prepped and draped in standard sterile fashion and a time out was called to identify proper site, proper procedure and IV antibiotics per weight were administered. I began by making a posteroradial incision. This allowed exposure to the olecranon and the radial head. The elbow was dislocated and I dissected off the fracture of the proximal ulna. This was irrigated and cleaned and reduced with a tenaculum and a Graciela locking plate was selected such that there were 8 cortices distal to the fracture. Provisional fixation was placed to stabilize the fracture and hardware and I turned my attention to the radial head. This was a comminuted fracture in which the radial head was completely missing from the radial shaft and neck. I dissected out the radiocapitellar joint and removed 3 pieces of the radial head. These were measured on the back table and I sized to size 22. I then debrided the area of loose bone and examined the coronoid. This was a type 2 coronoid fracture. It was still attached to the anterior capsule. I drilled a hole from the posterior ulna to the tip of the olecranon and used 2 FiberWire to engage the olecranon and then tied this posteriorly over a bone bridge. This reduced the coronoid in an acceptable position to provide some stability for the elbow. The bony fragment was small and additional fixation was not possible. I then returned to the radial head. I reamed the radial neck and selected a 7.5 mm stem and I trialed with a 20 head. The distal half of the posterolateral capsule was avulsed off the ulna. This did allow me to reduce the olecranon but as I took the elbow through range of motion a tenaculum was used to provisionally hold the capsule in place and this allowed for full supination pronation and flexion and extension of the elbow. I then removed all instrumentation and using standard AO technique filled the remainder of the olecranon screws using locking screws proximal to the fracture and nonlocking screws distal. Biplanar fluoroscopy was used to confirm fracture reduction and hardware position. I then placed my final radial head implant after copious irrigation. I was satisfied with the stability of the elbow and the position and size of the radial head implant based on direct visualization and radiographic analysis. I then turned my attention to the posterolateral soft tissues. I placed 1 Healicoil double loaded suture anchor into the radial aspect of the olecranon and used these to tightened and repair the posterolateral capsule. I placed additional FiberWire suture to over-sew the capsule. I then took the elbow through range of motion and was happy with the stability. I then closed the it help desk associate 0 radial for fascia and absorbable sutures were used in subcutaneous tissue and ingrid on the skin. Patient was placed into a well-padded posterior splint with the forearm slightly pronated at 90 degrees of flexion. She was then extubated brought to recovery room in stable condition there were no known complications.
== END 2022-10-17 14:39 | disposition home or self-care (01) | DRG 322 ==
LOC: HO.ED 14:02 → HO.EDOVER 14:14 → HO.S3 17:44
PROVIDERS: Orthopaedic Surgery; Admitting Provider Physician Assistant; Emergency Provider Emergency Medicine; PCP Family Medicine; Visit Provider Physician Assistant
PROC: (CPT 24685; principal; 2022-10-15 13:50)
DX: S52.001A Unspecified fracture of upper end of right ulna, initial encounter for closed fracture (principal); D72.829 Elevated white blood cell count, unspecified; F32.A Depression, unspecified; G89.18 Other acute postprocedural pain; S16.1XXA Strain of muscle, fascia and tendon at neck level, initial encounter; S52.131A Displaced fracture of neck of right radius, initial encounter for closed fracture; K21.9 Gastro-esophageal reflux disease without esophagitis; W19.XXXA Unspecified fall, initial encounter; Y93.K1 Activity, walking an animal; Z79.899 Other long term (current) drug therapy
CPT/HCPCS: 24685; 24366; 36415; 73060; 73070; 73120; 73200; 80048; 85025; 86850; 86900; 86901; 90715; 97110; 97162; 97166; 99283; C1713; C1776; J0131; J0690; J1170; J2270

== ENCOUNTER 2022-10-20 14:08 | Outpatient (REF) | payer OTHER, SELFPAY ==
--- NOTE | ~2022-10-20 | XR_ITS ---
EXAMINATION: XR ELBOW, RIGHT CLINICAL INFORMATION: Pain COMPARISON: Elbow radiographs 10/20/2022 TECHNIQUE: One view of the right elbow. FINDINGS: Status post open reduction internal fixation of the previously seen fractures of the radius and ulna with plate and screw fixation of the ulna and the radial head prosthesis in anatomic alignment. Overlying splinting material limits evaluation of fine bony detail. A persistent residual osseous fracture fragment of uncertain donor site anterior to the elbow. Elbow effusion. Soft tissue ingrid. XR/XR elbow RT min 3V IMPRESSION: Status post open reduction internal fixation of the fractures of the radius and ulna with plate and screw fixation of the ulna and the radial head prosthesis in anatomic alignment. Overlying splinting material limits evaluation of fine bony detail.
--- NOTE | ~2022-10-20 | XR_ITS ---
EXAMINATION: XR ELBOW, RIGHT CLINICAL INFORMATION: Pain COMPARISON: Elbow radiographs 10/14/2022 TECHNIQUE: One view of the right elbow. FINDINGS: Status post open reduction internal fixation of the previously seen fractures of the radius and ulna with plate and screw fixation of the ulna and the radial head prosthesis now in anatomic alignment. Overlying splinting material limits evaluation of fine bony detail. A persistent residual osseous fracture fragment of uncertain donor site anterior to the elbow. XR/XR elbow RT min 3V IMPRESSION: Status post open reduction internal fixation of the previously seen fractures of the radius and ulna with plate and screw fixation of the ulna and the radial head prosthesis now in anatomic alignment. Overlying splinting material limits evaluation of fine bony detail.
== END 2022-10-20 14:09 | disposition home or self-care (01) ==
LOC: HO.HOSX 14:08
PROVIDERS: PCP Family Medicine; Visit Provider Physician Assistant
DX: S42.401D Unspecified fracture of lower end of right humerus, subsequent encounter for fracture with routine healing (principal); S53.10 Unspecified subluxation and dislocation of ulnohumeral joint; W19.XXXD Unspecified fall, subsequent encounter
CPT/HCPCS: 29125; 73080

== ENCOUNTER 2022-10-27 08:33 | Outpatient (REF) | payer OTHER, SELFPAY ==
--- NOTE | ~2022-10-27 | XR_ITS ---
EXAMINATION: XR ELBOW, RIGHT CLINICAL INFORMATION: Pain right elbow COMPARISON: None available. TECHNIQUE: AP, lateral, and oblique views of the right elbow. FINDINGS: There is a prosthetic radial head and posterior proximal ulnar plate and screws for stabilizing proximal ulnar fracture. Postsurgical ingrid are seen along the posterior elbow. The right elbow is in a posterior cast. XR/XR elbow RT min 3V IMPRESSION: Postsurgical changes along the proximal radius and the ulna. Immediate postoperative changes with surgical ingrid are seen along the posterior elbow and a posterior hard cast.
== END 2022-10-27 08:34 | disposition home or self-care (01) ==
LOC: HO.HOSX 08:33
PROVIDERS: Visit Provider Physician Assistant
DX: S42.401D Unspecified fracture of lower end of right humerus, subsequent encounter for fracture with routine healing (principal); S53.104D Unspecified dislocation of right ulnohumeral joint, subsequent encounter; M25.521 Pain in right elbow; X58.XXXD Exposure to other specified factors, subsequent encounter
CPT/HCPCS: 73080

== ENCOUNTER 2022-11-03 11:46 | Outpatient (REF) | payer OTHER, SELFPAY ==
--- NOTE | ~2022-11-03 | XR_ITS ---
EXAMINATION: XR ELBOW, RIGHT CLINICAL INFORMATION: Pain right elbow COMPARISON: None available. TECHNIQUE: AP, lateral, and oblique views of the right elbow. FINDINGS: There is a prosthetic radial head and posterior proximal ulnar plate and screws for stabilizing proximal ulnar fracture. Postsurgical ingrid are seen along the posterior elbow. The right elbow is in a posterior cast. XR/XR elbow RT 2V IMPRESSION: Postsurgical changes along the proximal radius and the ulna. Immediate postoperative changes with surgical ingrid are seen along the posterior elbow and a posterior hard cast.
== END 2022-11-03 11:47 | disposition home or self-care (01) ==
LOC: HO.HOSX 11:46
PROVIDERS: Visit Provider Orthopaedic Surgery
DX: S42.401D Unspecified fracture of lower end of right humerus, subsequent encounter for fracture with routine healing (principal); S53.10 Unspecified subluxation and dislocation of ulnohumeral joint
CPT/HCPCS: 73070

== ENCOUNTER → 2022-11-13 12:14 | Outpatient (BNVA) | payer OTHER, SELFPAY | PROVIDERS: PCP Family Medicine; Visit Provider Orthopaedic Surgery ==

== ENCOUNTER 2022-12-04 10:57 | Outpatient (REF) | payer OTHER, SELFPAY ==
--- NOTE | ~2022-12-04 | XR_ITS ---
EXAMINATION: XR ELBOW, RIGHT CLINICAL INFORMATION: Right elbow pain. COMPARISON: November 03, 2022 and studies dating back to October 14, 2022. TECHNIQUE: AP, lateral, and oblique views of the right elbow. FINDINGS: There is a stable appearance with alignment of the right elbow status post arthroplasty with placement of prosthetic radial head and plate and side screws for fixation of a comminuted proximal ulnar fracture. Moderate effusion remains. Stable appearance of some bony fracture fragments. Fracture lines are still evident. There is some periosteal reaction seen about the proximal radius. No dislocation is evident. XR/XR elbow RT 2V IMPRESSION: Stable alignment with moderate right elbow effusion.
== END 2022-12-04 10:58 | disposition home or self-care (01) ==
LOC: HO.HOSX 10:57
PROVIDERS: Visit Provider Orthopaedic Surgery
DX: S42.401D Unspecified fracture of lower end of right humerus, subsequent encounter for fracture with routine healing (principal); S53.10 Unspecified subluxation and dislocation of ulnohumeral joint
CPT/HCPCS: 73070

== ENCOUNTER 2022-12-04 12:30 | Outpatient (AMB) | payer OTHER, SELFPAY ==
--- NOTE | 2022-12-04 12:58 | MHC.OFFVIS ---
Intake Intake Visit Reasons: Postop-f/u ORIF Rt elbow-DOS 10/15/22-xrays Intake Note: Kayla a 62 year old female presents today for a post operative ORIF of right elbow on 10/15/22. Xrays updated in office. Patient reports she is doing well, her pain level is about 2-3 out of 10. Continues to work with PT. She has concerns of bilateral knee pain since injury. States pain with kneeling. Allergies No Known Allergies Allergy (Verified 12/04/22 13:00) HPI Postop-f/u ORIF Rt elbow-DOS 10/15/22-xrays HPI Details Kayla is a 62 year old woman ~7 weeks S/P right elbow ORIF. She says she is doing well, and her pain has improved. She continues to work on her ROM at home. and has been attending OT. She says she has discontinued her Oxycodone use, and denies any numbness or tingling. She has been wearing her brace when out of the house. She says she is unsure how to comfortably return to work. 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 he has been doing some work at home, and says she can type for ~1 hour before having to stop and rest, however she is concerned that overwork will cause her pain. She is worried if she returns to work she may end up having to rest for 2-3 days after a full shift. She complains of some bilateral knee pain, which began after her injury. She says her pain has been slowly improving but she continues to have pain with kneeling activities. FORMERLY [facility] Medical History Depression GERD (gastroesophageal reflux disease) Neck strain Surgical History H/O colonoscopy S/P laparoscopic surgery Social History Housing: House Patient Tobacco Use Status: Never used Tobacco e-Cigarette/Vaping Use: Never Used service: No Current occupational status: employed Cognitive needs: No Hearing needs: No Vision needs: Yes Review of Systems Const All systems reviewed & are unremarkable except as noted in HPI and below Physical Exam Const General: no acute distress and alert Orientation/consciousness: patient oriented x3 Neuro General: patient oriented x3 Extrem Other: Right Elbow: 35-95 degrees ROM Well-healed incision Psych Appearance: grossly normal Affect: normal affect Attitude: cooperative Assessment & Plan Assessment & Plan (1) Elbow fracture, right: Code(s): S42.401A - Unspecified fracture of lower end of right humerus, initial encounter for closed fracture Plan: This is a 62 year old woman S/P right elbow ORIF, DOS: 10/15/22. She is doing well, her pain has improved and she continues to work on gentle ROM exercises both at home and with OT. She has discontinued her Oxycodone use. I recommend she continue to work with PT and with at-home exercises. She should use her arm for daily activities. . She will follow up in 1 month for a ROM check. I ordered a Dynasplint (2) Dislocation closed, elbow: Code(s): S53.106A - Unspecified dislocation of unspecified ulnohumeral joint, initial encounter Plan Scribed for Zelalem Alfaro MD by Gilbert Schneider, biomedical equipment technician, on 12/04/22 at 1:10 PM, EST. Orders: Orders XR elbow RT 2V Today M25.529 - Pain in unspecified elbow Medications: Discontinued lansoprazole 30 mg PO DAILY 90 caps 3RF Coding Level of Care Code Global (57624) Diagnoses Elbow fracture, right S42.401A Dislocation closed, elbow S53.106A
== END 2022-12-04 13:16 | disposition home or self-care (01) ==
PROVIDERS: PCP Family Medicine; Visit Provider Orthopaedic Surgery
DX: S42.401A Unspecified fracture of lower end of right humerus, initial encounter for closed fracture (principal); S53.106A Unspecified dislocation of unspecified ulnohumeral joint, initial encounter
CPT/HCPCS: 99024

== ENCOUNTER 2022-12-16 11:44 | Outpatient (AMB) | payer OTHER, SELFPAY ==
--- NOTE | 2022-12-16 11:50 | MHC.PC.OV ---
Vital Signs 12/16/22 11:53 Height 5 ft 7 in Weight 226 lb BMI 35.4 BP 122/78 Blood Pressure Location Lt brachial Position Sitting Pulse 92 Pulse Source Pulse Oximeter Pulse Oximetry (%) 96 Intake Visit Reasons: discuss medication Intake Note: pt is here for discuss medication Accompanied by: Self / Same As Patient Allergies No Known Allergies Allergy (Verified 12/16/22 12:22) Medication List - Last Reconciled 12/16/22 by Steve Palomo CNP acetaminophen 650 mg (2 x 325 mg) PO Q6H PRN 30 days calcium-magnesium 750-465 mg 1 tab PO DAILY cholecalciferol (vitamin D3) 50 mcg PO DAILY cyanocobalamin (vitamin B-12) (Vitamin B-12) 1,000 mcg PO DAILY fluoxetine 20 mg PO DAILY 30 days lansoprazole 30 mg PO DAILY@0630 melatonin 10 mg PO BEDTIME Tobacco use date assessed: 07/14/22 Fall risk assessment: 1 Fall in past year Last assessed Fall Risk: 12/16/22 Dental Screening Dental Screen Date: 12/16/22 Did you have a dental visit in the last 12 months?: Yes Did you have a dental problem in the last 6 months where you did not have access to dental care?: No Was dental information given to patient?: Patient has dentist HPI HPI Comments History of Present Illness Details 62-year-old female presents for medication management. She notes she fell in her driveway in September 2022 and fractured her right elbow. She had surgery and is currently doing PT twice a week. She states she has been taking an old script of lorazepam for situational anxiety. She reports increased anxiety when she had a cast on her right arm. She also reports anxiety when she has to go out to certain places. She states she is supposed to start sleeping with the cast. She notes she has been taking Lorazepam as needed for the past 15 years. However, she has not had a RF since 2000. [facility] Medical History (Updated 12/16/22 @ 12:55 by Steve Palomo CNP) Depression GERD (gastroesophageal reflux disease) Neck strain Surgical History (Updated 12/16/22 @ 11:58 by Compa Marsh CMA) H/O colonoscopy S/P laparoscopic surgery Status post surgery Social History (Updated 12/16/22 @ 11:58 by Compa Marsh CMA) Housing: House Alcohol intake: current Alcohol intake frequency: a few times a month Alcohol type: wine and hard liquor Patient Tobacco Use Status: Never used Tobacco e-Cigarette/Vaping Use: Never Used Use of substances other than those prescribed or required for medical reasons: No service: No Current occupational status: employed Cognitive needs: No Hearing needs: No Vision needs: Yes Questionnaire PHQ-9 Over the last 2 weeks, how often have you been bothered by any of the following problems? 1. Little interest or pleasure in doing things: not at all 2. Feeling down, depressed, or hopeless: several days 3. Trouble falling or staying asleep, or sleeping too much: several days 4. Feeling tired or having little energy: several days 5. Poor appetite or overeating: not at all 6. Feeling bad about yourself - or that you are a failure or have let yourself or your family down: several days 7. Trouble concentrating on things, such as reading the newspaper or watching television: not at all 8. Moving or speaking so slowly that other people could have noticed. Or the opposite - being so fidgety or restless that you have been moving around a lot more than usual: not at all 9. Thoughts that you would be better off or of hurting yourself in some way: not at all Total score: 4 Depression Screening Interpretation: Negative 47004 - PHQ-9 Billing: Yes Source: Developed by Drs. Arnulfo Briseno, Nona Brady, Jeanmarie Urena and colleagues, with an educational vineet from [employer]. Thrive Questionnaire Date Thrive assessed: 07/14/22 HERMINIO-7 AMB Questionnaire HERMINIO-7 Date HERMINIO - 7 assessed: 12/16/22 Feeling nervous, anxious, or on edge: 1 = Several days Not being able to stop or control worryin = Not at all Worrying too much about different things: 0 = Not at all Trouble relaxin = Not at all Being so restless that it is hard to sit still: 0 = Not at all Becoming easily annoyed or irritable: 1 = Several days Feeling afraid as if something awful might happen: 0 = Not at all Total HERMINIO-7 score (0-4 normal; 5-9 mild; 10-14 moderate; 15-21 severe): 2 Source: Developed by Drs. Arnulfo Briseno, Nona Brady, Jeanmarie Urena and colleagues, with an educational vineet from [employer] HERMINIO-7 Assessment Billing HERMINIO-7 Assessment Tool: HERMINIO-7 Assessment 49600 Review of Systems Const Details: Const Denies chills, Denies fatigue, Denies fever(s), Denies headache(s) and Denies weakness ENT Denies dizziness and Denies headache(s) Card Denies chest pain, Denies lightheadedness, Denies dyspnea and Denies other (Palpitations) Resp Denies cough, Denies dyspnea, Denies wheezing and Denies other ( shortness of breath) GI Denies abdominal pain, Denies melena, Denies hematochezia, Denies change in bowel habits, Denies dyspepsia and Denies nausea Denies hematuria and Denies dysuria Musc Denies abnormal gait, Denies myalgias, Denies arthralgias, Denies numbness and Denies tingling Skin/Breast Denies rash, Denies unusual bruising and Denies wounds Neuro Denies abnormal gait, Denies dizziness, Denies headache(s), Denies memory loss, Denies numbness, Denies Sensory deficit (Neuro), Denies tingling and Denies weakness Psych Denies anxiety and Denies depression Endo Denies fatigue Aller/Immun Denies wheezing Physical exam (Primary Care) Vital Signs: Last Vital Signs Pulse 92 12/16/22 11:53 BP 122/78 12/16/22 11:53 Pulse Ox 96 12/16/22 11:53 BMI result Body Mass Index 35.4 Tobacco/Smoking Status: Tobacco use Status Tobacco use date assessed 07/14/22 12/16/22 11:52 Patient Tobacco Use Status Never used Tobacco 12/16/22 11:58 e-Cigarette/Vaping Use Never Used 12/16/22 11:58 PHQ-9: PHQ-9 Score PHQ-9: Total score 4 12/16/22 12:44 Depression Screening Interpretation: Negative Thrive Assessment: Date of Thrive Assessment Date Thrive assessed 07/14/22 12/16/22 11:52 Const Other: General: no acute distress and well developed Nutritional Appearance: well nourished Orientation/consciousness: patient oriented x3 HENMT Head: Yes normocephalic and Yes atraumatic Eyes General: appearance normal, both eyes and all related structures Pupils: Equal, round and reactive pupils present EOM: EOMs intact bilaterally Resp Effort & Inspection: normal respiratory effort Auscultation: clear to auscultation bilaterally Cardio Rate: regular rate Rhythm: regular rhythm Heart sounds: S1 normal heart sound present, S2 normal heart sound present, no gallops, no murmurs and no rubs GI Palpation (GI): No Abdominal aortic bruit present, Soft to palpation, nontender, No hepatosplenomegaly present and No Rebound tenderness present Auscultation: normal bowel sounds General: Yes no CVA tenderness Back/Spine/Pelvis Back: no CVA tenderness Cervical Spine: cervical ROM normal and No Cervical spine tenderness Thoracic/Lumbar Spine: thoraco-lumbar ROM normal, No pain with thoraco-lumbar ROM, No thoracic spinal tenderness and No lumbar spinal tenderness Extrem General: Yes normal to inspection, No edema and No calf tenderness Skin General: warm and dry. Normal skin color. Normal skin turgor Lesions: no lesions Rashes: no rashes Trauma: no lacerations or abrasions Wounds: no wounds Nails: normal Neuro General: patient oriented x3, gait normal and no focal neuro deficit Cranial nerves: Yes Equal, round and reactive pupils present Cognition (Neuro): normal cognition Gait exam (Neuro): Normal gait present Sensory Exam: No Sensory deficit (Neuro) Psych Appearance: grossly normal Affect: normal affect Attitude: cooperative Thought process: Normal thought process present Assessment and Plan Assessment & Plan (1) Anxiety and depression: Code(s): F41.9 - Anxiety disorder, unspecified; F32.A - Depression, unspecified Plan: PHQ-9 and HERMINIO-7 scores are normal I spoke with Dr. Maurice who advised to obtain a urine sample for utox and start the patient on a low dose Lorazepam, PRN, no more than 12 tabs. Patient left without final plan was made manager business process informed to contact the patient about the plan. Medications: Discontinued lansoprazole 30 mg PO DAILY 90 caps 3RF Coding Level of Care Code Est Pt Level 3 (64146) Diagnoses Anxiety and depression F41.9; F32.A Additional Codes HERMINIO-7 Assessment Billing - HERMINIO-7 Assessment Tool: HERMINIO-7 Assessment 96693 ([id number]) Time Spent (min) 25
[2022-12-16 11:53] VITALS: BP 122/78; PULSE 92; O2SAT 96; BMI 35.4
== END 2022-12-16 12:45 | disposition home or self-care (01) ==
PROVIDERS: PCP Family Medicine; Visit Provider Nurse Practitioner Family
DX: F41.9 Anxiety disorder, unspecified (principal); F32.A Depression, unspecified
CPT/HCPCS: 99213

== ENCOUNTER 2023-01-01 16:52 | Outpatient (REF) | payer OTHER, SELFPAY ==
--- NOTE | ~2023-01-01 | XR_ITS ---
EXAMINATION: XR ELBOW, RIGHT CLINICAL INFORMATION: Pain in unspecified elbow, right elbow COMPARISON: 12/04/2022 TECHNIQUE: AP, lateral, and oblique views of the right elbow. FINDINGS: There is a prosthetic radial head and posterior proximal ulnar plate and screws are stabilizing proximal ulnar fracture. There is no change in position or alignment of the fracture fragments. Moderate effusion remains. Stable appearance of some bony fracture fragments. Fracture lines are still evident. There is some periosteal reaction seen about the proximal radius. No dislocation is evident. XR/XR elbow RT min 3V IMPRESSION: Stable alignment with moderate right elbow effusion.
== END 2023-01-01 16:53 | disposition home or self-care (01) ==
LOC: HO.HOSX 16:52
PROVIDERS: Visit Provider Orthopaedic Surgery
DX: M25.521 Pain in right elbow (principal)
CPT/HCPCS: 73080

== ENCOUNTER 2023-01-02 09:38 | Outpatient (AMB) | payer OTHER, SELFPAY ==
--- NOTE | 2023-01-02 09:50 | A.OFFVIS_ITS ---
Intake Vital Signs 01/02/23 09:51 Height 5 ft 7 in Weight 226 lb BMI 35.4 Intake Visit Reasons: PO-f/u ORIF Rt elbow-DOS 10/15/22-xrays Intake Note: Kayla is a 62 year old female who presents today for a post operative appointment s/p Right Elbow ORIF 10/15/22. Patient reports that she is doing well,she has no concerns. She is still working with physical therapy and has about 2 more weeks left. Allergies No Known Allergies Allergy (Verified 01/02/23 09:51) HPI PO-f/u ORIF Rt elbow-DOS 10/15/22-xrays HPI Details Kayla Ahn is a 62-year-old female who returns 3 months status post right elbow ORIF. DOS 10/15/2022. The patient reports she is doing well, with no concerns. She confirms she is still working with physical therapy and has two more weeks remaining. She states she is work intermittently 4 days. She states she had tape applied while in physical therapy that caused the elbow to drain some. She also states she lifted some milk and felt pressure and discomfort in the elbow. [facility]LY [facility] Medical History Depression GERD (gastroesophageal reflux disease) Neck strain Surgical History H/O colonoscopy S/P laparoscopic surgery Status post surgery Social History Housing: House Alcohol intake: current Alcohol intake frequency: a few times a month Alcohol type: wine and hard liquor Patient Tobacco Use Status: Never used Tobacco e-Cigarette/Vaping Use: Never Used service: No Current occupational status: employed Cognitive needs: No Hearing needs: No Vision needs: Yes Review of Systems Const All systems reviewed & are unremarkable except as noted in HPI and below Physical Exam Vital Signs: BMI result Body Mass Index 35.4 Const General: cooperative, healthy appearing and no acute distress Resp Effort & Inspection: normal respiratory effort and able to speak in complete sentences Cardio Rate: regular rate Peripheral pulses: Peripheral pulses 2+ throughout GI Palpation (GI): Soft to palpation Skin Lesions: no lesions Rashes: no rashes Extrem Other: Right posterior elbow: Motion is 30-100 degrees without firm end point. Full pronation and restricted in final 30 degrees of supination. Assessment & Plan Assessment & Plan (1) Elbow fracture, right: Code(s): S42.401A - Unspecified fracture of lower end of right humerus, initial encounter for closed fracture Plan: She is overall doing well with expected stiffness. She will continue to work with physical therapy. The office ordered a Dynasplint, but she found this to be intolerable. She was given a work note stating she can continue work restriction as prior for 4 weeks. She will call the office should she need to increase or decrease her work load. Follow up will be in 8-10 weeks, or sooner if needed. (2) Dislocation closed, elbow: Code(s): S53.106A - Unspecified dislocation of unspecified ulnohumeral joint, initial encounter Plan Scribed for Dr. Zelalem Alfaro by Verena Porter, medical office specialist, on 12/23/2022 at 9:59 am, EST. Medications: Discontinued lansoprazole 30 mg PO DAILY 90 caps 3RF Coding Level of Care Code Global (53219) Diagnoses Elbow fracture, right S42.401A Dislocation closed, elbow S53.106A
[2023-01-02 09:51] VITALS: BMI 35.4
== END 2023-01-02 10:14 | disposition home or self-care (01) ==
PROVIDERS: PCP Family Medicine; Visit Provider Orthopaedic Surgery
DX: S42.401A Unspecified fracture of lower end of right humerus, initial encounter for closed fracture (principal); S53.106A Unspecified dislocation of unspecified ulnohumeral joint, initial encounter
CPT/HCPCS: 99024

== ENCOUNTER → 2023-01-02 09:38 | Outpatient (BNVA) | payer OTHER, SELFPAY | PROVIDERS: PCP Family Medicine; Visit Provider Orthopaedic Surgery | DX: M25.529 Pain in unspecified elbow (principal) ==

== ENCOUNTER 2023-02-19 11:55 | Outpatient (AMB) | payer MEDICARE, SELFPAY ==
[2023-02-19 11:58] VITALS: BP 124/74; PULSE 76; O2SAT 95; BMI 35.8
--- NOTE | 2023-02-19 11:58 | MHC.PC.OV ---
Vital Signs 02/19/23 11:58 Height 5 ft 7 in Weight 228 lb 6 oz BMI 35.8 BP 124/74 Blood Pressure Location Lt brachial Position Sitting Pulse 76 Pulse Source Pulse Oximeter Pulse Oximetry (%) 95 Oxygen Delivery Method Room Air Intake Visit Reasons: PE Intake Note: Patient is here for her physical today. Allergies No Known Allergies Allergy (Verified 02/19/23 12:01) Tobacco use date assessed: 02/19/23 Fall risk assessment: No Falls in past year Last assessed Fall Risk: 02/19/23 Dental Screening Dental Screen Date: 02/19/23 Did you have a dental visit in the last 12 months?: Yes Did you have a dental problem in the last 6 months where you did not have access to dental care?: No Was dental information given to patient?: Patient has dentist HPI PE HPI Details 63 y/o female presents for a CPE with f/u labs and health maintenance 30 mins. No recent labs to review. Had seen Steve Palomo 12/16/22 for anxiety/depression. Plan was to start pt on low dose of lorazepam. Pt reports she had increased her fluoxetine from 20mg to 40mg which she states has helped. She reports she does have some seasonal affective disorder. She reports she had a significant fall and had dislocated/fractured her elbow. She had seen Dr. Alfaro orthopedics and she follows up with them. She reports she is doing well though she notes ongoing numbness with her hands. [facility] Medical History GERD (gastroesophageal reflux disease) Depression Neck strain Surgical History Status post surgery H/O colonoscopy S/P laparoscopic surgery Social History Housing: House Alcohol intake: current Alcohol intake frequency: a few times a month Alcohol type: wine and hard liquor Patient Tobacco Use Status: Never used Tobacco e-Cigarette/Vaping Use: Never Used service: No Current occupational status: employed Cognitive needs: No Hearing needs: No Vision needs: Yes Questionnaire Thrive Questionnaire Date Thrive assessed: 07/14/22 HERMINIO-7 AMB Questionnaire HERMINIO-7 Date HERMINIO - 7 assessed: 12/16/22 Source: Developed by Drs. Arnulfo Briseno, Nona Brady, Jeanmarie Urena and colleagues, with an educational vineet from [employer]. Review of Systems Const Denies chills, Denies fatigue, Denies fever(s), Denies headache(s) and Denies weakness Eyes Denies change in vision ENT Denies dizziness, Denies headache(s), Denies hearing loss, Denies nasal congestion, Denies sinus pain, Denies sinus pressure and Denies sore throat Card Denies chest pain, Denies lightheadedness, Denies dyspnea and Denies other (palpitations) Resp Denies cough, Denies dyspnea and Denies wheezing GI Denies abdominal pain, Denies melena, Denies hematochezia, Denies change in bowel habits, Denies dyspepsia and Denies nausea Denies hematuria and Denies dysuria Musc Denies abnormal gait, Denies myalgias, Denies arthralgias, Denies numbness and Denies tingling Skin/Breast Denies rash, Denies unusual bruising and Denies wounds Neuro Denies abnormal gait, Denies dizziness, Denies headache(s), Denies memory loss, Denies numbness, Denies Sensory deficit (Neuro), Denies tingling and Denies weakness Psych Denies anxiety, Denies depression and Denies memory loss Endo Denies cold intolerance, Denies fatigue, Denies heat intolerance, Denies polydipsia and Denies polyuria Izaiah/Lymph Denies easy bleeding and Denies easy bruising Aller/Immun Denies wheezing Physical exam (Primary Care) Vital Signs: Last Vital Signs Pulse 76 02/19/23 11:58 BP 124/74 02/19/23 11:58 Pulse Ox 95 02/19/23 11:58 Oxygen Delivery Method Room Air 02/19/23 11:58 BMI result Body Mass Index 35.8 Tobacco/Smoking Status: Tobacco use Status Tobacco use date assessed 02/19/23 02/19/23 12:09 Patient Tobacco Use Status Never used Tobacco 02/19/23 12:02 e-Cigarette/Vaping Use Never Used 02/19/23 12:02 Thrive Assessment: Date of Thrive Assessment Date Thrive assessed 07/14/22 02/19/23 12:02 Const General: no acute distress, well developed, alert and awake Nutritional Appearance: well nourished and obese Orientation/consciousness: patient oriented x3 [facility] Head: Yes normocephalic and Yes atraumatic Ears: hearing grossly normal bilaterally and TM's normal bilaterally General nose exam: Normal external nose present and Normal nares present Mouth: Normal oral and palatal mucosa present and moist mucous membranes Teeth and gingiva: dentition normal Throat: Yes posterior oropharynx normal Eyes General: appearance normal, both eyes and all related structures Pupils: Equal, round and reactive pupils present and Pupil accommodation reflex normal EOM: EOMs intact bilaterally Neck Neck: Yes normal visual inspection, Yes no lymphadenopathy and Yes trachea midline Thyroid: Thyroid normal Carotids: no bruits Lymphatic: no lymphadenopathy noted Chest Chest palpation & inspection: normal inspection of the chest Resp Effort & Inspection: normal respiratory effort Auscultation: clear to auscultation bilaterally Cardio Rate: regular rate Rhythm: regular rhythm Heart sounds: S1 normal heart sound present, S2 normal heart sound present, no gallops, no murmurs and no rubs Bruits: no abdominal aortic bruits and no carotid bruits GI Palpation (GI): No Abdominal aortic bruit present, Soft to palpation, nontender, No hepatosplenomegaly present and No Rebound tenderness present Auscultation: normal bowel sounds General: Yes no CVA tenderness Back/Spine/Pelvis Back: no CVA tenderness Cervical Spine: cervical ROM normal and No Cervical spine tenderness Thoracic/Lumbar Spine: thoraco-lumbar ROM normal, No pain with thoraco-lumbar ROM, No thoracic spinal tenderness and No lumbar spinal tenderness Skin Lesions: no lesions Rashes: no rashes Trauma: no lacerations or abrasions Wounds: no wounds Nails: normal Neuro General: patient oriented x3 Cranial nerves: Yes Equal, round and reactive pupils present Cognition (Neuro): normal cognition Gait exam (Neuro): Normal gait present Motor exam (neuro): 5/5 motor strength present throughout Sensory Exam: No Sensory deficit (Neuro) Deep tendon reflexes (DTR's): Right patellar reflex intensity grade: 2+ and Left patellar reflex intensity grade: 2+ Extrem General: Yes normal to inspection and No edema Psych Appearance: grossly normal Affect: normal affect Attitude: cooperative Thought process: Normal thought process present Assessment and Plan Assessment & Plan (1) Annual physical exam: Code(s): Z00.00 - Encounter for general adult medical examination without abnormal findings Plan: 63-year-old?woman?presents?for?complete?physical?exam Encouraged?healthy?diet?with?active?lifestyle?and?plenty?of?exercise (2) Anxiety and depression: Code(s): F41.9 - Anxiety disorder, unspecified; F32.A - Depression, unspecified Plan: She?is?increased?her?fluoxetine?from?20 to 40?mg?and?notes?that?she?often?has?more?depressed?mood?in?the?fall?and?winter?months.??Likely?some?seasonal?affective?disorder. She?had?also?discussed?using?some?lorazepam?with?MT?who?had?discuss?this?with?me?and?we?had?agreed?that?she?could?trial?a?limited?script?of?lorazepam;?12?tablets?per?30?days?each?month. Continue?fluoxetine?40?mg?right?now?and?will?give?her?that?script?for?lorazepam?as?she?has?not?received?yet. We?discussed?that?I?would?want?to?follow-up?with?her?every?3-4?months?for?anxiety.??Patient?agrees. (3) BMI 35.0-35.9,adult: Code(s): Z68.35 - Body mass index [BMI] 35.0-35.9, adult Plan: Counseled?patient?regarding?diet?and?exercise. Checking?labs (4) Screening for breast cancer: Code(s): Z12.39 - Encounter for other screening for malignant neoplasm of breast Plan: Recent?mammogram?at?[facility]?was?negative?for?malignancies?and?they?follow?her?through?inspecting machine adjuster?annually. (5) Elbow fracture, right: Code(s): S42.401A - Unspecified fracture of lower end of right humerus, initial encounter for closed fracture Plan: Some?tingling?and?numbness No?weakness Can?trial?a?small?amount?of?gabapentin?at?bedtime (6) Screening for cervical cancer: Code(s): Z12.4 - Encounter for screening for malignant neoplasm of cervix Plan: Fiber Technologist?Pap?smears?through?[facility] Follow-up?with?inspecting machine adjuster?as?recommended (7) Screening for osteoporosis: Code(s): Z13.820 - Encounter for screening for osteoporosis Plan: Osteopenia?found?in?2020 Recheck?bone?density (8) Screening for colon cancer: Code(s): Z12.11 - Encounter for screening for malignant neoplasm of colon Plan: Colonoscopy?via?[facility]?gastroenterology?at?age?58?and?she?was?told?to?follow-up?at?age?68 Up-to-date (9) Osteopenia: Code(s): M85.80 - Other specified disorders of bone density and structure, unspecified site Plan: Due?for?repeat?bone?density?test Ordered Continue?calcium?and?vitamin-D Advised?weight-bearing?exercise Orders: Orders Comprehensive [place]. Panel Fast Today Z00.00 - Encounter for general adult medical examination without abnormal findings Microalbumin, Random (w Creat) Today I10 - Essential (primary) hypertension XR DEXA axial skeleton Today M85.80 - Other specified disorders of bone density and structure, unspecified site Complete Blood Count Auto Diff Today Z00.00 - Encounter for general adult medical examination without abnormal findings Lipid Panel Today Z00.00 - Encounter for general adult medical examination without abnormal findings TSH reflex Free T4 Today Z00.00 - Encounter for general adult medical examination without abnormal findings UA and rflx microscopic Today Z00.00 - Encounter for general adult medical examination without abnormal findings Medications: New fluoxetine 40 mg PO DAILY 30 caps 3RF 30 days lorazepam 0.5 mg PO DAILY PRN 12 tabs 0RF anxiety 30 days Coding Level of Care Code Est Pt Level 3 (80912) Est Pt Prev Care >65y(40182) Diagnoses Annual physical exam Z00.00 Anxiety and depression F41.9; F32.A BMI 35.0-35.9,adult Z68.35 Screening for breast cancer Z12.39 Elbow fracture, right S42.401A Screening for cervical cancer Z12.4 Screening for osteoporosis Z13.820 Screening for colon cancer Z12.11 Osteopenia M85.80
== END 2023-02-19 13:05 | disposition home or self-care (01) ==
PROVIDERS: PCP Family Medicine; Visit Provider Family Medicine
DX: Z00.00 Encounter for general adult medical examination without abnormal findings (principal); F41.9 Anxiety disorder, unspecified; F32.A Depression, unspecified; Z68.35 Body mass index [BMI] 35.0-35.9, adult; Z12.39 Encounter for other screening for malignant neoplasm of breast; S42.401A Unspecified fracture of lower end of right humerus, initial encounter for closed fracture; Z13.820 Encounter for screening for osteoporosis; Z12.11 Encounter for screening for malignant neoplasm of colon; M85.80 Other specified disorders of bone density and structure, unspecified site
CPT/HCPCS: 99397

== ENCOUNTER 2023-02-27 09:16 | Outpatient (AMB) | payer SELFPAY ==
--- NOTE | 2023-02-27 09:20 | A.OFFVIS_ITS ---
Intake Intake Visit Reasons: OV- PO-f/u ORIF Rt elbow-DOS 10/15/22-xrays Intake Note: Kayla is a 62 year old female who presents today for a post operative appointment s/p Right Elbow ORIF 10/15/22. Patient reports that she has having numbness in the 5th and 4th digit of the right arm and left trigger thumb. She explains that the right elbow is overall dong well with little to no pain Allergies No Known Allergies Allergy (Verified 02/19/23 12:01) HPI OV- PO-f/u ORIF Rt elbow-DOS 10/15/22-xrays HPI Details Kayla is a 63 year old woman ~4 months S/P right elbow ORIF. She says in regards to her elbow she is doing well, without any pain, and is happy with the results of her surgery. She complains of new numbness in her right ring & small fingers She also complains of painful locking & catching of her left thumb PFSH Medical History GERD (gastroesophageal reflux disease) Depression Neck strain Surgical History Status post surgery H/O colonoscopy S/P laparoscopic surgery Social History Housing: House Alcohol intake: current Alcohol intake frequency: a few times a month Alcohol type: wine and hard liquor Patient Tobacco Use Status: Never used Tobacco e-Cigarette/Vaping Use: Never Used service: No Current occupational status: employed Cognitive needs: No Hearing needs: No Vision needs: Yes Review of Systems Const All systems reviewed & are unremarkable except as noted in HPI and below Physical Exam Const General: no acute distress, alert and awake Orientation/consciousness: patient oriented x3 HEENT Head: Yes normocephalic and Yes atraumatic Eyes EOM: EOMs intact bilaterally Resp Effort & Inspection: normal respiratory effort and able to speak in complete sentences Cardio Jugular venous distension: no JVD Skin General skin exam: turgor normal Rashes: no rashes Neuro General: patient oriented x3 Extrem Other: Right Arm: 30-100 55-70 sup/pro + TInel's at cubital tunnel Psych Appearance: grossly normal Affect: normal affect Attitude: cooperative Results Reviewed Results Reviewed: I personally reviewed relevant radiographs. Intact orthopedic hardware with stable alignment. No hardware complications. loose body Assessment & Plan Assessment & Plan (1) Elbow fracture, right: Code(s): S42.401A - Unspecified fracture of lower end of right humerus, initial encounter for closed fracture Plan: This is a 63 year old woman S/P right elbow ORIF, DOS: 10/15/22. She is doing well, without any pain and improving motion. She has new numbness in her ring & small fingers but this has been present only for a few weeks and is mild. I recommend she continue activity as tolerated and will see me in 2-3 months.. (2) Dislocation closed, elbow: Code(s): S53.106A - Unspecified dislocation of unspecified ulnohumeral joint, initial encounter Plan Scribed for Zelalem Alfaro MD by Gilbert Schneider, director of medical services, on [ ] at [ ], EST. Orders: Orders XR elbow RT 2V 02/27/23 M25.529 - Pain in unspecified elbow Coding Level of Care Code Global (80953) Diagnoses Elbow fracture, right S42.401A Dislocation closed, elbow S53.106A
== END 2023-02-27 10:24 | disposition home or self-care (01) ==
PROVIDERS: PCP Family Medicine; Visit Provider Orthopaedic Surgery
DX: S42.401D Unspecified fracture of lower end of right humerus, subsequent encounter for fracture with routine healing (principal); S53.10 Unspecified subluxation and dislocation of ulnohumeral joint
CPT/HCPCS: 99213

== ENCOUNTER 2023-02-27 09:16 | Outpatient (REF) | payer OTHER, SELFPAY ==
--- NOTE | ~2023-02-27 | XR_ITS ---
EXAMINATION: XR ELBOW, RIGHT CLINICAL INFORMATION: Pain in unspecified elbow COMPARISON: 12/04/2022 TECHNIQUE: AP, lateral, and oblique views of the right elbow. FINDINGS: The patient is status post arthroplasty with placement of prosthetic radial head and plate and side screws for fixation of a comminuted proximal ulnar fracture. Small effusion is again seen. There is lucency about the stem of the radial prosthetic component with a proximal portion of the stem no longer surrounded by bone. Stable appearance of some bony fracture fragments. There is blurring of the fracture lines of the ulnar fractures. There is mild periosteal reaction about the proximal radius. XR/XR elbow RT 2V IMPRESSION: 1. Status post arthroplasty with placement of prosthetic radial head and plate and side screws for fixation of a comminuted proximal ulnar fracture. 2. Lucency about the stem of the radial prosthetic component with a proximal portion of the stem no longer surrounded by bone.
== END 2023-02-27 09:17 | disposition home or self-care (01) ==
LOC: HO.HOSX 09:16
PROVIDERS: PCP Family Medicine; Visit Provider Orthopaedic Surgery
DX: S42.401D Unspecified fracture of lower end of right humerus, subsequent encounter for fracture with routine healing (principal); S53.10 Unspecified subluxation and dislocation of ulnohumeral joint; M25.521 Pain in right elbow; R20.0 Anesthesia of skin; M65.312 Trigger thumb, left thumb; X58.XXXD Exposure to other specified factors, subsequent encounter
CPT/HCPCS: 73070

== ENCOUNTER 2023-03-04 09:00 | Outpatient (RCR) | payer MEDICARE, OTHER, SELFPAY ==
--- NOTE | 2022-11-12 11:25 | MHC.OT.EP ---
[address] [phone] Occupational Therapy Plan of Care Patient Name: Kayla Ahn Date of Evaluation: 11/12/22 Diagnosis: Right elbow fx; post-op radial head arthroplasty, olecronon ORIF, coronoid ORIF Pain Location: Mild ache in wrist, otherwise pain free at rest Achy/Tired at the end of the day Pain Score: 5 Pain Scale Used: Numeric (0 - 10) Aggravating Factors: General use, worse at the end of the day Alleviating Factors: Tylenol, ice Assessment: 62 yo female was walking her dog, dog pulled away and she fell to the ground, landing on her right elbow. In ED, x-ray shows dislocation of elbow, coronoid fx and olecronon fx. She underwent surgical repair w/ ORIF x2 and radial head arthoplasty. She was placed in sling and discharged home. She has since followed up with Dr Alfaro and has been wearing hinged brace now referred to OT for progression. Today on assessment, she is wearing hinge brace, unlocked position to allow for guarded ROM of elbow. Measurements taken and range is about 40-90 degrees ext/flex w/ about 40/40 pro/sup. Wrist is tight, digts are WFL but week. No loss of sensation or coordination. She is very motivated and aware of procautions, I anticipate she will do well through course of therapy for return of range, strength and everyday functional use of right arm. Frequency and Duration: The patient will be seen 2/xwk for 8 weeks Short Term Goals: Ind w/ HEP Ind w/ scar management Ind w/ use of ice and heat appropirately Elbow ext to 30 degrees Elbow flex to 110 degrees Ease w/ active hand grasp Forearm rotation to 60/60 Fdc Goals: Pain free w/ light use of right arm Right gross grasp >35lb Elbow ext 20 degrees Elbow flex 130 degrees Forearm pro/sup 70/70 QUICKDASH score <40 pts Treatment Plan: Therapeutic Exercise Therapeutic Activity Home Exercise Program Splinting Patient Education Edema Control ADL Training Ultrasound Fluidotherapy MHP Cold Packs Joint Mobilization Soft Tissue Mobilization Kinesiotaping Electronically Signed By: Zoe Michele, OTR/L CHT Please Sign and return to therapist. Thank you once again for your referral.
--- NOTE | 2022-11-26 10:45 | MHC.OT.OP ---
[address] [phone] F: [phone] Occupational Therapy Progress Note Patient Name: Kayla Ahn Diagnosis: Right elbow fx; post-op radial head arthroplasty, olecronon ORIF, coronoid ORIF Date of Surgery: 10/15/22 Date of Evaluation: 11/12/22 Treatments to Date: 6 Subjective: I try to do my exercises, and I do more activities now Pain Score: 7 Pain Location: right elbow Objective Measures: Elbow ext/flex 40/100 Forearm pro/sup 50/50 Gross grasp 8lb Assessment: 6 wks post op. Conts to have significant tightness w/ elbow range with minimal carry over between sessions. About 10 degrees gains each direction with flex/ext after heat and stretch. Pt reports good follow through w/ HEP and trying to push a bit more, and using more functionally during the day, but overall needs encouragement for prolonged stretching, limited by pain, stiffness and somewhat anxious. 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
--- NOTE | 2022-12-31 13:07 | MHC.OT.OP ---
[address] [phone] F: [phone] Occupational Therapy Progress Note Patient Name: Kayla Ahn Diagnosis: Right elbow fx; post-op radial head arthroplasty, olecronon ORIF, coronoid ORIF Date of Surgery: 10/15/22 Date of Evaluation: 11/12/22 Treatments to Date: 13 Cancellations to Date: No Shows to Date: Subjective: Its feeling stronger Brushing my teeth, feeding myself more.... Pt reports able to work a four hour day with breaks every 45-60 min Reports discomfort with repetitive keyboard to mouse... 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 She is tolerating a 4 hour work day with breaks for pain management and exercise. She demo good technique with self ROM. passive elbow ROM and gentle strengthening. Shoulder and hand stiffness and discomfort improved. Improving with light functional activity, limited by elbow ROM impairment . Her primary concerns are increasing her elbow flexion for ease with ADL and increasing her activity tolerance with the keyboard and other activities. Pt may benefit from a elbow flexion splint Short Term Goals: Ind w/ HEP (met) Ind w/ scar management (met) Ind w/ use of ice and heat appropriately (met) Elbow ext to 30 degrees (met) Elbow flex to 110 degrees (met) Ease w/ active hand grasp (met) Forearm rotation to 60/60 (met) Fdc Goals: Pain free w/ light use of right arm Right gross grasp >35lb Elbow ext 20 degrees Elbow flex 130 degrees Forearm pro/sup 70/70 QUICKDASH score <40 pts Frequency and Duration: The patient will be seen 2x wk, weaning to self management over 4 wks Treatment Plan: Therapeutic Exercise Therapeutic Activity Home Exercise Program Splinting Patient Education May benefit from a dynamic elbow flexion orthosis ( I have not discussed with the patient) Electronically Signed By: Aileen Juan OT CHT CLT Reviewed/agree with student documentation: Therapist:
--- NOTE | 2023-02-25 13:49 | MHC.OT.OP ---
[address] [phone] F: [phone] Occupational Therapy Progress Note Patient Name: Kayla Ahn Diagnosis: Right elbow fx; post-op radial head arthroplasty, olecronon ORIF, coronoid ORIF Date of Surgery: 10/15/22 Date of Evaluation: 11/12/22 Treatments to Date: 26 Cancellations to Date: No Shows to Date: Subjective: I had some trouble driving and my thumb has been clicking lately. Pain Score: 2 Pain Location: right elbow Objective Measures: Elbow ext/flex 25/110 Forearm pro/sup 65/70 Gross grasp 30 lb Status: Progressing Assessment: Alessia is about 4.5 months s/p elbow fx/dislocation w/ radial head arthroplasty, olecronon and coronoid repair. She is doing fairly well with HEP but has been modifying home and work tasks for increased ease and decrease of ulnar nerve symptoms that have occurred. She has also recently noted locking/clicking in her left thumb and we have given her oval 8 orthosis for early trigger thumb management. Overall, elbow flex/ext is still limited from full range, but she continues to have increased ease and ability w/ everyday activities, no significant functional impairments. 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 We will wean to self management soon. Short Term Goals: Ind w/ HEP (met) Ind w/ scar management (met) Ind w/ use of ice and heat appropriately (met) Elbow ext to 30 degrees (met) Elbow flex to 110 degrees (met) Ease w/ active hand grasp (met) Forearm rotation to 60/60 (met) Alf Goals: Pain free w/ light use of right arm Right gross grasp >35lb Elbow ext 20 degrees Elbow flex 130 degrees Forearm pro/sup 70/70 QUICKDASH score <40 pts Frequency and Duration: The patient will be seen 1x/wk for 2-3 weeks Treatment Plan: Therapeutic Exercise Therapeutic Activity Home Exercise Program Patient Education Edema Control ADL Training Ultrasound MHP Cold Packs Joint Mobilization Soft Tissue Mobilization Kinesiotaping wean to self management Electronically Signed By: BOWEN Perez/Liz WILD Reviewed/agree with student documentation: Yes Therapist: BOWEN Perez/Liz WILD
--- NOTE | 2023-03-04 09:55 | MHC.OT.DC ---
[address] [phone] F: [phone] Occupational Therapy Discharge Note Patient Name: Kayla Ahn Provider: Dr Zelalem Alfaro Diagnosis: Right elbow fx; post-op radial head arthroplasty, olecronon ORIF, coronoid ORIF Date of Surgery: 10/15/22 Date of Evaluation: 11/12/22 Date of Discharge: 03/04/23 Treatments to Date: 27 Discharge Status: Achieved Goals Improved Function Independent with HEP Discharge Summary: Kayla is almost 5 months s/p right elbow fracture-dislocation w/ surgical repair. Goals have been met and she is doing well w/ most daily activities, still difficulty w/ some heavy lifting, but overall range and strength WFL w/ zero to minimal daily pain. Ulnar nerve symptoms are improving w/ activity modification and Gabapentin. She has developed mild trigger thumb on left but is managed w/ ice and Oval 8 at this time. No further OT services indicated at this time, she will continue HEP and other daily activities and gym to continue progress. Electronically Signed By: BOWEN Perez/Liz WILD Reviewed/agree with student documentation: Yes Therapist: BOWEN Perez/Liz WILD Please Sign and return to therapist, thank you for your referral.
== END 2023-03-04 09:55 | disposition home or self-care (01) ==
LOC: HO.OT 09:00
PROVIDERS: PCP Family Medicine; Visit Provider Orthopaedic Surgery
DX: S42.401D Unspecified fracture of lower end of right humerus, subsequent encounter for fracture with routine healing (principal)
CPT/HCPCS: 97033; 97035; 97110; 97140; 97166; 97530

== ENCOUNTER 2023-03-11 07:18 | Outpatient (REF) | payer MEDICARE, SELFPAY ==
--- NOTE | ~2023-03-11 | MM_ITS ---
EXAMINATION: BONE DENSITOMETRY CLINICAL INDICATION: Other specified disorders of bone density and structure, unspecified site. COMPARISON: Baseline BD dated 05/23/2020. TECHNIQUE: Using a official.fm DXA System (software version: 13.1) manufactured by [employer], dual-energy x-ray absorptiometry was performed of the lumbar spine and left hip. The images are of good technical quality. Summary results are attached. FINDINGS: LEFT FEMUR, NECK: Current: BMD 0.898 g/cm2, Z-score -0.3, T-score -1.0, normal. Baseline: BMD 0.807 g/cm2. LEFT FEMUR, TOTAL: Current: BMD 1.030 g/cm2, Z-score 0.5, T-score 0.2, normal, 2.0% increase from baseline (<5% change is not significant). Baseline: BMD 1.010 g/cm2. AP SPINE L3-L4 (excluding L1 and L2): The data of L1-L4 has been changed to exclude the L1 and L2 vertebral bodies, because degenerative sclerosis at these levels may cause overestimation of lumbar spine density. Current: BMD 1.110 g/cm2, Z-score -0.3, T-score -0.8, normal, 3.3% increase from baseline (<5% change is not significant). Baseline: BMD 1.075 g/cm2. IDENTIFIED RISK FACTORS: History of fracture (adult), menopause. HISTORY OF FRACTURE: Elbow. MEDICATIONS: Vitamin D, calcium. MM/XR DEXA axial skeleton IMPRESSION: 1. DIAGNOSIS: Normal bone density based on the lowest T-score value of -1.0 in the femoral neck applying World Health Organization criteria. 2. 10-YEAR FRACTURE RISK PREDICTION, FRAX: According to the guidelines, FRAX calculation should only be performed on patients in the osteopenia bone density category. Therefore, FRAX was not performed on this patient. 3. Treatment Recommendations: NOF guidelines recommend consideration for treatment in postmenopausal women and men age 50 and older presenting with the following: -A hip or vertebral (clinical or morphometric) fracture. -T-score less than or equal to -2.5 at the femoral neck or spine after appropriate evaluation to exclude secondary causes. -Low bone mass at the hip or spine and a 10-year fracture probability by FRAX of greater than or equal to 3% for hip fracture or greater than or equal to 20% for major osteoporotic fracture based on the [place] adapted WHO algorithm. 4. Other Recommendations: All treatment decisions require clinical judgment and consideration of individual patient factors, including patient preferences, comorbidities, previous drug use, risk factors not captured in the FRAX model (e.g. frailty, falls, vitamin D deficiency, increased bone turnover, interval significant decline in bone density) and possible under or overestimation of fracture risk by FRAX. FUTURE SCAN RECOMMENDATION: People with diagnosed cases of osteoporosis or at high risk for fracture should have regular bone mineral density tests. For patients eligible for Medicare, routine testing is allowed once every 2 years. The testing frequency can be increased to one year for patients who have rapidly progressing disease, those who are receiving or discontinuing medical therapy to restore bone mass, or have additional risk factors.
[2023-03-11 07:36] LABS: MANUAL DIFF FLAG NO
[2023-03-11 08:09] LABS: Basophils Absolute Auto 0.1 X10*3/uL (0.0-0.2); Basophils Percent Auto 0.8 % (0-2); Eosinophils Absolute Auto 0.2 X10*3/uL (0.0-0.4); Eosinophils Percent Auto 2.1 % (0-4); Hematocrit 41.6 % (37.0-47.0); Hemoglobin 13.2 g/dl (12.0-16.0); Imm Gran Abs Auto 0.03 X10*3/uL (0.00-0.03); Imm Gran Pct Auto 0.4 % (0.0-0.4); Lymphocytes Absolute Auto 1.5 X10*3/uL (1.2-4.9); Lymphocytes Percent Auto 21.3 % (20-40); Mean Corpuscular HGB Conc 31.7 g/dl (31.0-35.0); Mean Corpuscular Volume 85.1 fL (80.0-98.0); Mean Platelet Volume 9.1 fL (9.4-12.3); Monocytes Absolute Auto 0.8 X10*3/uL (0.1-1.2); Monocytes Percent Auto 10.7 % (2-11); Neutrophils Absolute Auto 4.6 x10*3/uL (2.0-8.3); Neutrophils Percent Auto 64.7 % (45-73); Platelet Count 425 X10*3/uL (160-400); Red Blood Count 4.89 X10*6/uL (4.20-5.50); Red Cell Distribution Width 14.5 % (11.0-16.0); White Blood Count 7.1 X10*3/uL (4.8-10.8)
[2023-03-11 08:47] LABS: Alanine Aminotransferase 20 U/L (0-31); Albumin Level 4.2 g/dL (3.5-5.0); Alkaline Phosphatase 77 U/L (39-117); Anion Gap 13 (12-20); Aspartate Amino Transferase 18 U/L (5-31); Bilirubin Total 0.4 mg/dL (0.0-1.0); Blood Urea Nitrogen 20 mg/dL (9-16); Calcium 9.7 mg/dL (8.4-10.2); Carbon Dioxide 26 mmol/L (22-29); Chloride 105 mmol/L (96-108); Cholesterol 175 mg/dL (<200); Estimated Glomerular Filt Rate > 60; Glucose Fasting 119 mg/dL (60-99); HDL Cholesterol 36 mg/dL (>40); LDL Cholesterol Calculated 114 mg/dL (<100); Sodium 140 mmol/L (135-145); Total Protein 8.1 g/dL (6.5-8.0); Triglycerides 126 mg/dL (<150)
[2023-03-11 15:23] LABS: Appearance Urine Clear; Color Urine Dark Yellow; Glucose Urine UA Negative (Negative); Leukocyte Esterase Urine Negative (Negative); Nitrite Urine Negative (Negative); PH 5.5 (5.0-9.0); Urine Blood Negative (Negative); Urine Ketones Negative (Negative); Urine Protein Negative (Neg-Trace)
[2023-03-11 15:51] LABS: Creatinine Urine 80.35 mg/dL; Microalbum/Creatinine Ratio Ur 6.2 ug/mg cr (<30)
== END 2023-03-11 07:19 | disposition home or self-care (01) ==
LOC: HO.MAMMO 07:18
PROVIDERS: PCP Family Medicine; Visit Provider Family Medicine
DX: Z13.820 Encounter for screening for osteoporosis (principal); Z78.0 Asymptomatic menopausal state; M85.80 Other specified disorders of bone density and structure, unspecified site; Z00.00 Encounter for general adult medical examination without abnormal findings; I10 Essential (primary) hypertension
CPT/HCPCS: 36415; 77080; 80053; 80061; 81003; 82043; 82570; 84443; 85025

== ENCOUNTER 2023-03-24 15:35 | Outpatient (AMB) | payer MEDICARE, SELFPAY ==
--- NOTE | 2023-03-24 15:29 | A.OFFPC_ITS ---
Intake Visit Reasons: f/u CPE-labs Intake Note: Patient is following up on her labs today. Allergies No Known Allergies Allergy (Verified 03/24/23 15:30) Tobacco use date assessed: 03/24/23 Fall risk assessment: 1 Fall in past year Last assessed Fall Risk: 03/24/23 HPI f/u CPE-labs HPI Details 63 y/o female presents to f/u CPE-labs v ia telemedicine. Labs were drawn 03/11/23. Reviewed labs with pt. Plt count mildly elevated. Elevated fasting glucose of 119. Triglycerides 126. TC 175. LDL 114. HDL low at 36. PFSH Medical History GERD (gastroesophageal reflux disease) Depression Neck strain Surgical History Status post surgery H/O colonoscopy S/P laparoscopic surgery Social History Housing: House Alcohol intake: current Alcohol intake frequency: a few times a month Alcohol type: wine and hard liquor Patient Tobacco Use Status: Never used Tobacco e-Cigarette/Vaping Use: Never Used service: No Current occupational status: employed Cognitive needs: No Hearing needs: No Vision needs: Yes Questionnaire Thrive Questionnaire Date Thrive assessed: 07/14/22 HERMINIO-7 AMB Questionnaire HERMINIO-7 Date HERMINIO - 7 assessed: 12/16/22 Source: Developed by Drs. Arnulfo Briseno, Nona Brady, Jeanmarie Urena and colleagues, with an educational vineet from [employer]. Review of Systems Const Denies chills, Denies fatigue, Denies fever(s), Denies headache(s) and Denies weakness ENT Denies dizziness and Denies headache(s) Card Denies dyspnea Resp Denies cough, Denies dyspnea, Denies wheezing and Denies other (shortness of breath) Musc Denies numbness and Denies tingling Neuro Denies dizziness, Denies headache(s), Denies numbness, Denies tingling and Denies weakness Psych Denies anxiety and Denies depression Endo Denies fatigue Aller/Immun Denies wheezing Physical exam (Primary Care) Tobacco/Smoking Status: Tobacco use Status Tobacco use date assessed 03/24/23 03/24/23 15:33 Patient Tobacco Use Status Never used Tobacco 03/24/23 15:33 e-Cigarette/Vaping Use Never Used 03/24/23 15:33 Thrive Assessment: Date of Thrive Assessment Date Thrive assessed 07/14/22 03/24/23 15:33 Telehealth Telehealth Minutes spent on Phone/Video with Pt.: 12 Assessment and Plan Assessment & Plan (1) Elevated platelet count: Code(s): R79.89 - Other specified abnormal findings of blood chemistry Plan: Patient?was?rather?dehydrated?and?this?is?likely?spurious. Can?follow?at?next?CBC (2) Low HDL (under 40): Code(s): E78.6 - Lipoprotein deficiency Plan: Encouraged?exercise?and?[place]?3?fatty?acid (3) Elevated fasting glucose: Code(s): R73.01 - Impaired fasting glucose Plan: Last?A1c?showed?pre?diabetes. Will?check?at?next?visit Encouraged?a?diet?lower?in?sugars?and?starches (4) Screening for osteoporosis: Code(s): Z13.820 - Encounter for screening for osteoporosis Plan: Bone?density?in?2020?showed?osteopenia. Recent?bone?density?shows?normal?bone?density Continue?calcium?and?vitamin-D.??Continue?weight-bearing?exercise (5) Anxiety and depression: Code(s): F41.9 - Anxiety disorder, unspecified; F32.A - Depression, unspecified Plan: Doing?well?on?fluoxetine?40?mg?daily Has?lorazepam?for?any?significant?increase?in?anxiety. Orders: Orders Comprehensive Alloy. Panel Fast Today R73.03 - Prediabetes, Z00.00 - Encounter for general adult medical examination without abnormal findings Lipid Panel Today E78.6 - Lipoprotein deficiency, Z00.00 - Encounter for general adult medical examination without abnormal findings Medications: Changed From gabapentin 200 mg (2 x 100 mg) PO BEDTIME 30 days 60 caps 0RF To gabapentin 200 mg (2 x 100 mg) PO BEDTIME 180 caps 1RF 90 days Discontinued fluoxetine Discontinued Reason: Doctor's Order 20 mg PO DAILY 30 days 30 caps 1RF Coding Level of Care Code Tele Est Pt Level 2 (66884) Diagnoses Elevated platelet count R79.89 Low HDL (under 40) E78.6 Elevated fasting glucose R73.01 Screening for osteoporosis Z13.820 Anxiety and depression F41.9; F32.A
== END 2023-03-24 16:45 ==
LOC: HO.HMGFM 15:35
PROVIDERS: PCP Family Medicine; Visit Provider Family Medicine
DX: R79.89 Other specified abnormal findings of blood chemistry (principal); E78.6 Lipoprotein deficiency; R73.01 Impaired fasting glucose; Z13.820 Encounter for screening for osteoporosis; F41.9 Anxiety disorder, unspecified; F32.A Depression, unspecified
CPT/HCPCS: 99442

== ENCOUNTER 2023-06-03 16:24 | Outpatient (AMB) | payer MEDICARE, SELFPAY ==
[2023-06-03 16:30] VITALS: BP 124/70; PULSE 75; O2SAT 96; BMI 35.5
--- NOTE | 2023-06-03 16:30 | A.OFFPC_ITS ---
Vital Signs 06/03/23 16:30 Height 5 ft 7 in Weight 227 lb BMI 35.5 BP 124/70 Blood Pressure Location Lt brachial Position Sitting Pulse 75 Pulse Source Pulse Oximeter Pulse Oximetry (%) 96 Oxygen Delivery Method Room Air Intake Visit Reasons: f/u anxiety/depression Intake Note: Patient is here to follow up on anxiety and depression Allergies No Known Allergies Allergy (Verified 06/03/23 16:33) Tobacco use date assessed: 06/03/23 Fall risk assessment: 1 Fall in past year Last assessed Fall Risk: 06/03/23 HPI f/u anxiety/depression HPI Details 63 y/o female presents to f/u anxiety. She is on fluoxetine 40mg and lorazepam 0.5mg. She scores well on her anxiety/depression today. Hx of pre-diabetes. A1c today 06/03/23 is 6.1%, which had climbed from 5.8%. [facility] Medical History GERD (gastroesophageal reflux disease) Depression Neck strain Surgical History Status post surgery H/O colonoscopy S/P laparoscopic surgery Social History Housing: House Alcohol intake: current Alcohol intake frequency: a few times a month Alcohol type: wine and hard liquor Comment: Independent with ADLs, fall from dog pulling her. Patient Tobacco Use Status: Never used Tobacco e-Cigarette/Vaping Use: Never Used service: No Current occupational status: employed Cognitive needs: No Hearing needs: No Vision needs: Yes Questionnaire PHQ-9 Over the last 2 weeks, how often have you been bothered by any of the following problems? 1. Little interest or pleasure in doing things: not at all 2. Feeling down, depressed, or hopeless: not at all 3. Trouble falling or staying asleep, or sleeping too much: several days 4. Feeling tired or having little energy: not at all 5. Poor appetite or overeating: not at all 6. Feeling bad about yourself - or that you are a failure or have let yourself or your family down: not at all 7. Trouble concentrating on things, such as reading the newspaper or watching television: not at all 8. Moving or speaking so slowly that other people could have noticed. Or the opposite - being so fidgety or restless that you have been moving around a lot more than usual: not at all 9. Thoughts that you would be better off or of hurting yourself in some way: not at all Total score: 1 Depression Screening Interpretation: Negative Depression Screening Done: Yes 05132 - PHQ-9 Billing: Yes Source: Developed by Drs. Arnulfo Briseno, Jeanmarie Ibarra and colleagues, with an educational vineet from [employer]. Thrive Questionnaire Date Thrive assessed: 07/14/22 HERMINIO-7 AMB Questionnaire HERMINIO-7 Date HERMINIO - 7 assessed: 06/03/23 Feeling nervous, anxious, or on edge: 0 = Not at all Not being able to stop or control worryin = Several days Worrying too much about different things: 0 = Not at all Trouble relaxin = Not at all Being so restless that it is hard to sit still: 0 = Not at all Becoming easily annoyed or irritable: 1 = Several days Feeling afraid as if something awful might happen: 0 = Not at all Total HERMINIO-7 score (0-4 normal; 5-9 mild; 10-14 moderate; 15-21 severe): 2 Source: Developed by Drs. Arnulfo Briseno, Jeanmarie Ibarra and colleagues, with an educational vineet from [employer]. HERMINIO-7 Assessment Billing HERMINIO-7 Assessment Tool: HERMINIO-7 Assessment 75591 Review of Systems Const Denies chills, Denies fatigue, Denies fever(s), Denies headache(s) and Denies weakness ENT Denies dizziness and Denies headache(s) Card Denies dyspnea Resp Denies cough, Denies dyspnea, Denies wheezing and Denies other (shortness of breath) Musc Denies numbness and Denies tingling Neuro Denies dizziness, Denies headache(s), Denies numbness, Denies tingling and Denies weakness Psych Denies anxiety and Denies depression Endo Denies fatigue Aller/Immun Denies wheezing Physical exam (Primary Care) Vital Signs: Last Vital Signs Pulse 75 06/03/23 16:30 BP 124/70 06/03/23 16:30 Pulse Ox 96 01/17/24 16:30 Oxygen Delivery Method Room Air 06/03/23 16:30 BMI result Body Mass Index 35.5 Tobacco/Smoking Status: Tobacco use Status Tobacco use date assessed 06/03/23 06/03/23 16:44 Patient Tobacco Use Status Never used Tobacco 06/03/23 16:44 e-Cigarette/Vaping Use Never Used 06/03/23 16:44 PHQ-9: PHQ-9 Score PHQ-9: Total score 1 06/03/23 16:44 Depression Screening Interpretation: Negative Thrive Assessment: Date of Thrive Assessment Date Thrive assessed 07/14/22 06/03/23 16:44 Const General: well developed; No acute distress Nutritional Appearance: well nourished Orientation/consciousness: patient oriented x3 HENMT Head: Yes normocephalic and Yes atraumatic Eyes General: appearance normal, both eyes and all related structures Pupils: Equal, round and reactive pupils present EOM: EOMs intact bilaterally Resp Effort & Inspection: normal respiratory effort Neuro General: patient oriented x3 and gait normal Cranial nerves: Yes Equal, round and reactive pupils present Psych Affect: normal affect Assessment and Plan Assessment & Plan (1) Anxiety and depression: Code(s): F41.9 - Anxiety disorder, unspecified; F32.A - Depression, unspecified Plan: Controlled?on?current?medication?regimen (2) Prediabetes: Code(s): R73.03 - Prediabetes Plan: A1c?worsened?from?5.8%?to?6.1% Continue?to?work?on?diet?low?in?sugars?and?starches.??Will ?ask?the?nurse?navigator?to?start?nutrition?counseling (3) Elbow pain: Code(s): M25.529 - Pain in unspecified elbow Plan: History?of?right?elbow?surgery She?can?contact?her?orthopedic?surgeon?to?discuss (4) Pain of left thumb: Code(s): M79.645 - Pain in left finger(s) Plan: She?has?undergone?occupational?therapy?and?has?a?thumb?brace?but?still?has?some? pain?and?locking?of?her?left?thumb Referred?to?Hand?surgery Orders: Referrals Hand Surgery Referral M79.645 - Pain in left finger(s) Coding Level of Care Code Est Pt Level 4 (97908) Diagnoses Anxiety and depression F41.9; F32.A Prediabetes R73.03 Elbow pain M25.529 Pain of left thumb M79.645 Additional Codes HERMINIO-7 Assessment Billing - HERMINIO-7 Assessment Tool: HERMINIO-7 Assessment 54077 ([id number])
== END 2023-06-03 17:07 | disposition home or self-care (01) ==
PROVIDERS: PCP Family Medicine; Visit Provider Family Medicine
DX: R73.03 Prediabetes (principal); F41.9 Anxiety disorder, unspecified; F32.A Depression, unspecified; M25.521 Pain in right elbow; M79.645 Pain in left finger(s)
CPT/HCPCS: 99214

== ENCOUNTER 2023-07-02 08:53 | Outpatient (AMB) | payer MEDICARE, SELFPAY ==
--- NOTE | 2023-07-02 08:56 | A.OFFVIS_ITS ---
Intake Vital Signs 07/02/23 09:04 Height 5 ft 7 in Weight 227 lb BMI 35.5 Intake Visit Reasons: new prob- Pain in left finger Intake Note: Kayla is a 63 year old right hand dominant female who presents today for a new problem visit with complaints of left thumb pain locking and catching. Patient reports that she has [place] trigger thumb since about February. She was given a splint that she wears mostly at night, the has only helped her symptoms by preventing immobilization. She has pain at the base of the thumb (CMC) and locking at the mcp. Denies numbness and tingling. She has history of right elbow ORIF and the left hand had become her dominant hand which she thinks that this is the cause of her symptoms. Allergies No Known Allergies Allergy (Verified 07/02/23 09:03) Medication List - Last Reconciled 07/02/23 by Ayesha Alaniz MD acetaminophen 650 mg (2 x 325 mg) PO Q6H PRN 30 days calcium-magnesium 750-465 mg 1 tab PO DAILY cholecalciferol (vitamin D3) 50 mcg PO DAILY cyanocobalamin (vitamin B-12) (Vitamin B-12) 1,000 mcg PO DAILY fluoxetine 40 mg PO DAILY 30 days gabapentin 200 mg (2 x 100 mg) PO BEDTIME 90 days lansoprazole 30 mg PO DAILY@0630 lorazepam 0.5 mg PO DAILY PRN 30 days melatonin 10 mg PO BEDTIME HPI HPI Comments History of Present Illness Details Denies injuries or falls Triggering left thumb since February. She's been using left arm more when she dislocated right elbow. While having OT for elbow, she also was given a finger splint for left thumb. Af ter 2 weeks, it felt worse. Thumb maybe gets swollen. Locks on IP flexsion. Has felt a nodule on palmar side. No numbness. Treatment done so far: NSAIDs used gabapentin for the elbow finger splint [facility] Medical History (Updated 07/02/23 @ 09:21 by Ayesha Alaniz MD) Trigger thumb, left thumb GERD (gastroesophageal reflux disease) Depression Neck strain Surgical History Status post surgery H/O colonoscopy S/P laparoscopic surgery Social History Housing: House Alcohol intake: current Alcohol intake frequency: a few times a month Alcohol type: wine and hard liquor Comment: Independent with ADLs, fall from dog pulling her. Patient Tobacco Use Status: Never used Tobacco e-Cigarette/Vaping Use: Never Used service: No Current occupational status: employed Cognitive needs: No Hearing needs: No Vision needs: Yes Review of Systems Const All systems reviewed & are unremarkable except as noted in HPI and below Physical Exam Vital Signs: BMI result Body Mass Index 35.5 Constitutional: Patient appears to be in no acute distress, well nourished and well developed. MSK: Triggering left thumb, locks at IP joints, nodule palpable palmar area just at level of CMC joint No joint effusion noted. No deformity noted. No intrinsic hand weakness noted. No atrophy noted. Alessandro test negative. Carpal compression test negative. Tinel sign negative. No tenderness in left elbow pain. No wrist drop. Strength is 5/5 in all muscle groups tested. No increased tone noted. Neurological: Neurologic examination of the upper and lower extremities was nonfocal with intact sensation, muscle stretch reflexes and without focal motor deficits . Vega?s negative bilaterally. Gait is non-antalgic without loss of balance. Results Reviewed Results Reviewed: I reviewed records from the following: Ortho - s/p Right Elbow ORIF 10/15/22 PCP Ordering Physician: Leno Maurice MD Results: Date of Service: 03/11/23 Follow Up: Procedure(s): XR DEXA axial skeleton Accession Number(s): [id number] cc: Leno Maurice MD~ EXAMINATION: BONE DENSITOMETRY CLINICAL INDICATION: Other specified disorders of bone density and structure, unspecified site. COMPARISON: Baseline BD dated 05/23/2020. TECHNIQUE: Using a Serious [place] DXA System (software version: 13.1) manufactured by [employer], dual-energy x-ray absorptiometry was performed of the lumbar spine and left hip. The images are of good technical quality. Summary results are attached. FINDINGS: LEFT FEMUR, NECK: Current: BMD 0.898 g/cm2, Z-score -0.3, T-score -1.0, normal. Baseline: BMD 0.807 g/cm2. LEFT FEMUR, TOTAL: Current: BMD 1.030 g/cm2, Z-score 0.5, T-score 0.2, normal, 2.0% increase from baseline (<5% change is not significant). Baseline: BMD 1.010 g/cm2. AP SPINE L3-L4 (excluding L1 and L2): The data of L1-L4 has been changed to exclude the L1 and L2 vertebral bodies, because degenerative sclerosis at these levels may cause overestimation of lumbar spine density. Current: BMD 1.110 g/cm2, Z-score -0.3, T-score -0.8, normal, 3.3% increase from baseline (<5% change is not significant). Baseline: BMD 1.075 g/cm2. IDENTIFIED RISK FACTORS: History of fracture (adult), menopause. HISTORY OF FRACTURE: Elbow. MM/XR DEXA axial skeleton IMPRESSION: 1. DIAGNOSIS: Normal bone density based on the lowest T-score value of -1.0 in the femoral neck applying World Health Organization criteria. 2. 10-YEAR FRACTURE RISK PREDICTION, FRAX: According to the guidelines, FRAX calculation should only be performed on patients in the osteopenia bone density category. Therefore, FRAX was not performed on this patient. 3. Treatment Recommendations: NOF guidelines recommend consideration for treatment in postmenopausal women and men age 50 and older presenting with the following: -A hip or vertebral (clinical or morphometric) fracture. -T-score less than or equal to -2.5 at the femoral neck or spine after appropriate evaluation to exclude secondary causes. -Low bone mass at the hip or spine and a 10-year fracture probability by FRAX of greater than or equal to 3% for hip fracture or greater than or equal to 20% for major osteoporotic fracture based on the [place] adapted WHO algorithm. 4. Other Recommendations: All treatment decisions require clinical judgment and consideration of individual patient factors, including patient preferences, comorbidities, previous drug use, risk factors not captured in the FRAX model (e.g. frailty, falls, vitamin D deficiency, increased bone turnover, interval significant decline in bone density) and possible under or overestimation of fracture risk by FRAX. FUTURE SCAN RECOMMENDATION: People with diagnosed cases of osteoporosis or at high risk for fracture should have regular bone mineral density tests. For patients eligible for Medicare, routine testing is allowed once every 2 years. The testing frequency can be increased to one year for patients who have rapidly progressing disease, those who are receiving or discontinuing medical therapy to restore bone mass, or have additional risk factors. Assessment & Plan Assessment & Plan (1) Trigger thumb, left thumb: Code(s): M65.312 - Trigger thumb, left thumb (2) Pain of left thumb: Code(s): M79.645 - Pain in left finger(s) Plan Patient having left trigger thumb. Discussed options for treatment including splint, OT, injection, surgery. We decided to put her on a finger splint Stax and refer her to OT. Patient felt comfortable using the splint. We will send her for hand x-ray today to rule out CMC joint arthritis. If not improved in 4 weeks, we could consider injection. Patient would like to avoid surgery as much as possible. Assessment and plan discussed with patient, and patient was agreeable. All questions were answered thoroughly. Call sooner if needed. Ayesha Alaniz MD, ANAHI Board Certified, [place] Board [employer] and Rehabilitation (ABPMR) Board Certified, [place] Board of Electrodiagnostic Medicine (ABEM) Orders: Orders XR hand wrist LT Today M79.645 - Pain in left finger(s) OT Evaluation and Treatment Today M65.312 - Trigger thumb, left thumb Coding Level of Care Code New Pt Level 4 (88117) Diagnoses Trigger thumb, left thumb M65.312 Pain of left thumb M79.645
[2023-07-02 09:04] VITALS: BMI 35.5
== END 2023-07-02 09:46 | disposition home or self-care (01) ==
PROVIDERS: PCP Family Medicine; Visit Provider Physical Medicine & Rehabilitation
DX: M65.312 Trigger thumb, left thumb (principal); M79.645 Pain in left finger(s)
CPT/HCPCS: 99204

== ENCOUNTER 2023-07-02 08:53 | Outpatient (REF) | payer MEDICARE, SELFPAY ==
--- NOTE | ~2023-07-02 | XR_ITS ---
EXAMINATION: XR HAND/WRIST, LEFT CLINICAL INFORMATION: Pain in left fingers COMPARISON: None TECHNIQUE: PA, lateral, and oblique views of the left hand and wrist. FINDINGS: Visualized portion of the distal radius and ulna demonstrate no fracture. Carpal rows are well-maintained. No carpal bone fracture. No metacarpal or phalangeal fracture. No significant degenerative changes. No focal soft tissue swelling. No radiopaque foreign body. XR/XR hand wrist LT IMPRESSION: Unremarkable radiographs of the left hand and wrist.
== END 2023-07-02 08:54 | disposition home or self-care (01) ==
LOC: HO.HOSX 08:53
PROVIDERS: PCP Family Medicine; Visit Provider Physical Medicine & Rehabilitation
DX: M65.312 Trigger thumb, left thumb (principal); Z79.899 Other long term (current) drug therapy
CPT/HCPCS: 73110; 73130; 99202

== ENCOUNTER 2023-07-27 08:00 | Outpatient (RCR) | payer MEDICARE, SELFPAY ==
--- NOTE | 2023-07-17 10:59 | MHC.OT.OEV ---
[address] [phone] F: [phone] Occupational Therapy Evaluation Patient Name: Kayla Ahn Diagnosis: (L)thumb trigger finger Date of Onset: 02/15/23 Date of Surgery: Attending Provider: Ayesha Alaniz Prescribed Treatment: Follow Up Appointment: History of Current Condition: Patient is a 63 year old right handed female who was referred for (L)trigger thumb. Patient reported the symptoms started around February. She reports 6/10 pain during movement and denies numbness/ tingling. 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 Sleep: Triggering will wake her up if she is not wearing her oval eight Driving: (I) Vision: Balance: Pain Assessment Pain Score: 6 Pain Scale Used: Numeric (0 - 10) Pain Location and Description: 1/10 in (L)thumb at rest 6/10 (L)thumb during movement, reports sharp pain Aggravating Factors: Alleviating Factors: Advil or Tylenol Skin and Soft Tissue Assessment Skin and Soft Tissue: Comments: Skin intact Palpable nodule at the volar MP of the (L)thumb Nerve assessment Ulnar Nerve: Median Nerve: Radial Nerve: Comments: WFL Sensory Assessment Temperature: Light Touch: Proprioception: Vibration: Comments: Edema Assessment Upper Extremity: WNL Lower Extremity: Comments: Dexterity Assessment Dexterity: Left Impaired Comments: Functional Dexterity Test (R)26 seconds (L)30.18seconds Special Tests Comments: AROM(PROM) Strength Cervical Cervical Flexion: Cervical Extension: Cervical Lateral Flexion: Cervical Rotation: Comments: Shoulder Flexion: Extension: Abduction: Internal Rotation: External Rotation: Comments: WFL Flexion: Extension: Abduction: Internal Rotation: External Rotation: Comments: 4/5 grossly Elbow Flexion: Extension: Pronation: Supination: Comments: WFL Flexion: Extension: Pronation: Supination: Comments: 4/5 grossly Wrist Flexion: Extension: Ulnar Deviation: Radial Deviation: Comments: WFL Flexion: Extension: Ulnar Deviation: Radial Deviation: Comments: 4/5 grossly Thumb Thumb CMC Flexion: WFL Thumb MCP Flexion: WFL Thumb IP Flexion: 10* AROM/ 30* PROM Radial Abduction: WFL Palmar Abduction: [place] ([place] 0-10): Comments: Digits Index MCP: PIP: DIP: Long MCP: PIP: DIP: Ring MCP: PIP: DIP: Small MCP: PIP: DIP: Comments: WFL Gross Grasp: (R)35.5lbs. (L)44.6lbs. Lateral Pinch: 4 Two-Point Pinch: 5 Three-Jaw Isaak: 6 Comments: Patient Education Primary Language: Nepali Hepatologist Required: No Current Knowledge: Teaching Method: Education Needs Identified on Evaluation: How did patient/family demonstrate learning? Barriers to Learning: Readiness for Learning: Who was educated? Comments: Plan of Care Assessment: Patient is a 63 year old female who was referred for (L)trigger finger, at office visit CMC arthritis was r/o. Patient reports symptoms began in February, she has been wearing and Oval 8 splint at night time but is unsure if it is helping. She reports 1/10 at rest and 6/10 during movement which is sharp. She stated her PLOF as (I) with ADLs/ IADLS, lives with her in a 1 level home and she works from home which requires her to use the computer/ type all day. During initial evaluation it was found patient has limited ROM of the IP joint as she has 10* active flexion and 30* passive flexion. 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 The Functional Dexterity Test= (L)30.18 indicating impaired coordination. It was also observed that there is palpable nodule at the volar MP joint. Quick DASH = 29.5 indicating patient's perceived impairment of the UE during self care tasks. Patients CLOF is min (A) IADLs as patient presents with pain, impaired ROM, impaired strength, impaired coordination, and impaired performance during self care tasks. Due to the documented impairments it is recommended that patient receive skilled OT intervention in order increase strength and ROM, and decrease pain for patient to achieve her PLOF of (I). Thank you for your referral. STG Duration: 2 weeks Short Term Goals: Patient will report decreased pain in (L)thumb from 6/10 to 4/10 Patient will increase (L)IP active flexion by 10* Patient will tolerate wearing thumb splint for at least 6 hours LTG Duration: 4 weeks [facility] Goals: Patient will report decreased pain in (L)thumb as 0/10 Patient will increase (L)IP active flexion by 30* Patient will tolerate wearing thumb splint all day and remove for exercises Patient will be (I) with HEP Patient will increase quality assurance tech strength by at least 5lbs. Patient's Quick DASH score will improved by at least 10 points Frequency and Duration: The patient will be seen 2x a week for 4 weeks Treatment Plan: Therapeutic Exercise Therapeutic Activity Home Exercise Program Splinting Patient Education Ultrasound Paraffin Fluidotherapy MHP Cold Packs Kinesiotaping OT eval and treat. Electronically Signed By: BOWEN Matthews/Liz, CLT Reviewed/agree with student documentation: Therapist: Please sign and return to therapist, Thank you for your referral.
== END 2023-11-05 10:33 | disposition home or self-care (01) ==
LOC: HO.OT 08:00
PROVIDERS: PCP Family Medicine; Visit Provider Physical Medicine & Rehabilitation
DX: M65.312 Trigger thumb, left thumb (principal)
CPT/HCPCS: 97035; 97110; 97140; 97166; 97760

== ENCOUNTER 2023-07-30 11:08 | Outpatient (AMB) | payer MEDICARE, SELFPAY ==
--- NOTE | 2023-07-30 11:14 | A.OFFVIS_ITS ---
Intake Vital Signs 07/30/23 11:18 Height 5 ft 7 in Weight 227 lb BMI 35.5 Handedness Right Intake Visit Reasons: OV-Pain in left finger-follow up Intake Note: Kayla is a 63 year old right hand dominant female who presents today for a follow up for her left Trigger thumb. Patient reports her pain has not improved. She states that O.T made her feel a bit better, however she doesn't notice any improvements. Allergies No Known Allergies Allergy (Verified 07/02/23 09:03) HPI HPI Comments History of Present Illness Details Denies injuries or falls Triggering left thumb since February. She's been using left arm more when she dislocated right elbow. While having OT for elbow, she also was given a finger splint for left thumb. After 2 weeks, it felt worse. Thumb maybe gets swollen. Locks on IP flexion. Has felt a nodule on palmar side. No numbness. Treatment done so far: NSAIDs used gabapentin for the elbow finger splint Continues to have triggering left thumb, now getting more stuck on extension position. No redness or swelling. No fever. She has tried OT and finger splint without much improvement. [facility] Medical History (Updated 07/02/23 @ 09:21 by Ayesha Alaniz MD) Trigger thumb, left thumb GERD (gastroesophageal reflux disease) Depression Neck strain Surgical History Status post surgery H/O colonoscopy S/P laparoscopic surgery Social History Housing: House Alcohol intake: current Alcohol intake frequency: a few times a month Alcohol type: wine and hard liquor Comment: Independent with ADLs, fall from dog pulling her. Patient Tobacco Use Status: Never used Tobacco e-Cigarette/Vaping Use: Never Used service: No Current occupational status: employed Cognitive needs: No Hearing needs: No Vision needs: Yes Physical Exam Vital Signs: BMI result Body Mass Index 35.5 Constitutional: Patient appears to be in no acute distress, well nourished and well developed. MSK: Triggering left thumb, nodule palpable palmar area just at level of CMC joint No joint effusion noted. No deformity noted. No intrinsic hand weakness noted. No atrophy noted. Alessandro test negative. Carpal compression test negative. Tinel sign negative. No tenderness in left elbow pain. No wrist drop. Strength is 5/5 in all muscle groups tested. No increased tone noted. Neurological: Neurologic examination of the upper and lower extremities was nonfocal with intact sensation, muscle stretch reflexes and without focal motor deficits . Vega?s negative bilaterally. Gait is non-antalgic without loss of balance. Office Procedures Tendon Injection Tendon Injection Details: Risks and benefits discussed. Consent obtained. Patient places left hand palm up on table. Identified and marked area over the A1 christy of the flexor tendon sheath of the left 1st digit. Area prepped in sterile manner. Solution containing 10mg Kenalog and 0.75mg 2% Lidocaine (1ml total) injected into the flexor tendon sheath using a 27 gauge 0.5 inch needle. During procedure, patient felt immediate numbness on left thumb distally. I injected only 0.4ml of the solution. Patient tolerated rest of procedure well. Post injection instructions given. 73630-Kmefva Tendon Sheath Injection All charges added?: Procedure code (CPT) selection complete Results Reviewed Results Reviewed: Ordering Physician: Ayesha Rodriguez Date of Service: 07/02/23 Procedure(s): XR hand wrist LT Accession Number(s): [id number] cc: Leno Maurice MD; Ayesha Rodriguez~ EXAMINATION: XR HAND/WRIST, LEFT CLINICAL INFORMATION: Pain in left fingers COMPARISON: None TECHNIQUE: PA, lateral, and oblique views of the left hand and wrist. FINDINGS: Visualized portion of the distal radius and ulna demonstrate no fracture. Carpal rows are well-maintained. No carpal bone fracture. No metacarpal or phalangeal fracture. No significant degenerative changes. No focal soft tissue swelling. No radiopaque foreign body. XR/XR hand wrist LT IMPRESSION: Unremarkable radiographs of the left hand and wrist. Assessment & Plan Assessment & Plan (1) Trigger thumb, left thumb: Code(s): M65.312 - Trigger thumb, left thumb Plan Still not improved despite finger splint and OT. Left thumb gets stuck on either extension or flexed position. Nodule palpable palmar side level of CMC joint. Xr ay done unremarkable. Discussed treatment options including referral to Dr. Magdaleno hand surgeon. She could trial trigger finger injection under fluoro with Dr. Magdaleno. She opted to have it done with me today without fluoro guidance. Nodule is palpable enough to inject. Benefits and risks discussed, including numbness of thumb today. Advised no heavy lifting today. During injection, she did feel fluid going up distally to thumb and felt numbness. There was no bloody return so confident not vascular. We did expect thumb to be numb today. I ended up injecting less volume of what I planned in itially. Otherwise she tolerated procedure well and no other complications noted. Assessment and plan discussed with patient, and patient was agreeable. All questions were answered thoroughly. Advised to call us 2-3 weeks in terms of improvement. If none, will refer to Dr. Magdaleno for further management. Ayesha Alaniz MD, ANAHI Board Certified, [place] [employer] and [employer] (ABPMR) Board Certified, [place] Board [employer] Electrodiagn[employer] (ABEM) Orders: Orders AMB Injection-Tendon Today M65.312 - Trigger thumb, left thumb Coding Level of Care Code Est Pt Level 3 (05853) Diagnoses Trigger thumb, left thumb M65.312 CPT Codes Tendon Injection - Tendon Injection 1: 83033-Dexawq Tendon Sheath Injection ([id number])
[2023-07-30 11:18] VITALS: BMI 35.5
== END 2023-07-30 12:01 | disposition home or self-care (01) ==
PROVIDERS: PCP Family Medicine; Visit Provider Physical Medicine & Rehabilitation
DX: M65.312 Trigger thumb, left thumb (principal)
CPT/HCPCS: 20550; 99213

== ENCOUNTER → 2023-07-30 11:08 | Outpatient (BNVA) | payer MEDICARE, SELFPAY | PROVIDERS: PCP Family Medicine; Visit Provider Physical Medicine & Rehabilitation | DX: M65.312 Trigger thumb, left thumb (principal) | CPT/HCPCS: 20550; 99212; J3301 ==

== ENCOUNTER 2023-10-16 08:22 | Outpatient (AMB) | payer MEDICARE, SELFPAY ==
--- NOTE | 2023-10-16 08:25 | A.OFFPC_ITS ---
Vital Signs 10/16/23 08:26 Height 5 ft 7 in Weight 230 lb BMI 36.0 BP 122/76 Blood Pressure Location Rt brachial Position Sitting Respiration 14 Pulse 106 H Pulse Source Pulse Oximeter Temp 97.8 F Temp Source Temporal Artery Scan Pulse Oximetry (%) 97 Oxygen Delivery Method Room Air Intake Visit Reasons: PreDm Air Box Tester Required: No Accompanied by: Self / Same As Patient Allergies No Known Allergies Allergy (Verified 10/16/23 08:31) Tobacco use date assessed: 06/03/23 Fall risk assessment: No Falls in past year Last assessed Fall Risk: 10/16/23 Dental Screening Dental Screen Date: 10/16/23 Did you have a dental visit in the last 12 months?: Yes Did you have a dental problem in the last 6 months where you did not have access to dental care?: No Was dental information given to patient?: Patient has dentist HPI HPI Comments History of Present Illness Details 63 y/o female presents to f/u anxiety/de pression. Hx of pre-diabetes. A1c today 10/16/23 6.1%. Pt reports trigger thumb, L has improved with an injection. PFSH Medical History Trigger thumb, left thumb GERD (gastroesophageal reflux disease) Depression Neck strain Surgical History Status post surgery H/O colonoscopy S/P laparoscopic surgery Social History Housing: House Alcohol intake: current Alcohol intake frequency: a few times a month Alcohol type: wine and hard liquor Comment: Independent with ADLs, fall from dog pulling her. 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 Arnulfo Briseno, Nona Brady, Jeanmarie Urena and colleagues, with an educational vineet from [email or web address]. Review of Systems Const Denies chills, Denies fatigue, Denies fever(s), Denies headache(s) and Denies weakness ENT Denies dizziness and Denies headache(s) Card Denies dyspnea Resp Denies cough, Denies dyspnea, Denies wheezing and Denies other (shortness of breath) Musc Denies numbness and Denies tingling Neuro Denies dizziness, Denies headache(s), Denies numbness, Denies tingling and Denies weakness Psych Denies anxiety and Denies depression Endo Denies fatigue Aller/Immun Denies wheezing Physical exam (Primary Care) Vital Signs: Last Vital Signs Temp 97.8 F 10/16/23 08:26 Pulse 106 H 10/16/23 08:26 Resp 14 10/16/23 08:26 BP 122/76 10/16/23 08:26 Pulse Ox 97 10/16/23 08:26 Oxygen Delivery Method Room Air 10/16/23 08:26 BMI result Body Mass Index 36.0 Tobacco/Smoking Status: Tobacco use Status Tobacco use date assessed 06/03/23 10/16/23 08:31 Patient Tobacco Use Status Never used Tobacco 10/16/23 08:31 e-Cigarette/Vaping Use Never Used 10/16/23 08:31 Thrive Assessment: Date of Thrive Assessment Date Thrive assessed 07/14/22 10/16/23 08:31 Const General: well developed; No acute distress Nutritional Appearance: well nourished and obese Orientation/consciousness: patient oriented x3 [facility] Head: Yes normocephalic and Yes atraumatic Eyes General: appearance normal, both eyes and all related structures Pupils: Equal, round and reactive pupils present EOM: EOMs intact bilaterally Resp Effort & Inspection: normal respiratory effort Auscultation: clear to auscultation bilaterally Cardio Rate: regular rate Rhythm: regular rhythm Heart sounds: S1 normal heart sound present, S2 normal heart sound present, no gallops, no murmurs and no rubs Neuro General: patient oriented x3 and gait normal Cranial nerves: Yes Equal, round and reactive pupils present Psych Affect: normal affect Results AMB Hemoglobin A1c AMB Hemoglobin A1c 6.1 % Last Edit by Gisela Charles CMA on 10/16/23 08:48 Results Reviewed Results Reviewed: Laboratory Last Values Hgb A1c (Clinic) 6.1 % (4.0-6.0) H 10/16/23 08:47 Assessment and Plan Assessment & Plan (1) Prediabetes: Code(s): R73.03 - Prediabetes Plan: See?remains?at?6.1%,?stable?and?in?pre?diabetes?range. Encouraged?diet?lower?in?sugars?and?starches Encouraged?weight?loss?and?more?exercise Patient?has?started?using?an?patricia?for?logging?h er?food?intake?and?I?encouraged?this (2) Anxiety and depression: Code(s): F41.9 - Anxiety disorder, unspecified; F32.A - Depression, unspecified Plan: Stable?on?fluoxetine?20?mg?daily Continue?current?medication?regimen (3) Trigger thumb, left thumb: Code(s): M65.312 - Trigger thumb, left thumb Plan: S/p?injection?therapy Follow-up?with?physiatry?as?recommended Orders: Orders UA and rflx microscopic Today Z00.00 - Encounter for general adult medical examination without abnormal findings AMB Hemoglobin A1c Today Z13.9 - Encounter for screening, unspecified Comprehensive [facility]. Panel Fast Today Z00.00 - Encounter for general adult medical examination without abnormal findings Complete Blood Count Auto Diff Today Z00.00 - Encounter for general adult medical examination without abnormal findings Lipid Panel Today Z00.00 - Encounter for general adult medical examination without abnormal findings Microalbumin, Random (w Creat) Today I10 - Essential (primary) hypertension TSH reflex Free T4 Today Z00.00 - Encounter for general adult medical examination without abnormal findings Vitamin D 25-OH Total Today E55.9 - Vitamin D deficiency, unspecified Vitamin B12 and Folate Today E53.8 - Deficiency of other specified B group vitamins Medications: Refilled gabapentin 200 mg (2 x 100 mg) PO BEDTIME 90 days 180 caps 3RF Coding Level of Care Code Est Pt Level 4 (04030) Diagnoses Prediabetes R73.03 Anxiety and depression F41.9; F32.A Trigger thumb, left thumb M65.312
[2023-10-16 08:26] VITALS: BP 122/76; PULSE 106; RESP 14; TEMP 36.6; O2SAT 97; BMI 36.0
== END 2023-10-16 09:04 | disposition home or self-care (01) ==
PROVIDERS: PCP Family Medicine; Visit Provider Family Medicine
DX: R73.03 Prediabetes (principal); F41.9 Anxiety disorder, unspecified; F32.A Depression, unspecified; M65.312 Trigger thumb, left thumb
CPT/HCPCS: 83036; 99214

== ENCOUNTER 2024-01-14 08:40 | Outpatient (AMB) | payer MEDICARE, SELFPAY ==
--- NOTE | 2024-01-14 08:41 | MHC.OFFVIS ---
Vital Signs 01/14/24 08:42 Height 5 ft 7 in Weight 230 lb BMI 36.0 Intake Visit Reasons: OV-Discuss Rt Elbow MILAGROS s/p ORIF 10/15/22 Intake Note: Kayla is a 63 year old right hand dominant female who presents today s/p Rt Elbow ORIF 10/15/22 to discuss possible hardware removal. Patient reports that she has been doing well, she does notice grinding and popping with ROM. She has no pain. Allergies No Known Allergies Allergy (Verified 01/14/24 08:44) HPI HPI OV-Discuss Rt Elbow MILAGROS s/p ORIF 10/15/22: Details: Kayla is a 63 year old right hand dominant female who presents today s/p Rt Elbow ORIF 10/15/22 to discuss possible hardware removal. Patient reports that she has been doing well, she does notice occasional grinding and popping with ROM. She has no pain. We had briefly discussed removal of hardware in the past and she is here today to talk about this. She states overall however she is doing quite well. [facility] Medical History Trigger thumb, left thumb GERD (gastroesophageal reflux disease) Depression Neck strain Surgical History Status post surgery H/O colonoscopy S/P laparoscopic surgery Social History Housing: House Alcohol intake: current Alcohol intake frequency: a few times a month Alcohol type: wine and hard liquor Comment: Independent with ADLs, fall from dog pulling her. 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 Well-healed incision 70 degrees supination 80 degrees pronation Assessment & Plan Assessment & Plan (1) Elbow fracture, right: Code(s): S42.401A - Unspecified fracture of lower end of right humerus, initial encounter for closed fracture Category: Medical Plan: Jacquelyn is approximately 16 months status post right elbow fracture dislocation treated with olecranon plating and radial head arthroplasty. She is doing quite well. She has a proximally 10 degrees loss of terminal extension which I think is a good outcome. Hardware removal might improve her extension minimally but given that she has no pain and is highly functional I think it is probably overkill. I discussed this with her. She agrees. If something changes she will return to see me. (2) Dislocation closed, elbow: Code(s): S53.106A - Unspecified dislocation of unspecified ulnohumeral joint, initial encounter Category: Medical Plan: Coding Level of Care Code Est Pt Level 4 (00455) Diagnoses Elbow fracture, right S42.401A Dislocation closed, elbow S53.106A
[2024-01-14 08:42] VITALS: BMI 36.0
== END 2024-01-14 08:56 | disposition home or self-care (01) ==
PROVIDERS: PCP Family Medicine; Visit Provider Orthopaedic Surgery
DX: S42.401D Unspecified fracture of lower end of right humerus, subsequent encounter for fracture with routine healing (principal); S53.10 Unspecified subluxation and dislocation of ulnohumeral joint; Z47.2 Encounter for removal of internal fixation device
CPT/HCPCS: 99214

== ENCOUNTER → 2024-01-14 08:40 | Outpatient (BNVA) | payer MEDICARE, SELFPAY | PROVIDERS: PCP Family Medicine; Visit Provider Orthopaedic Surgery | DX: Z47.2 Encounter for removal of internal fixation device (principal); S42.401A Unspecified fracture of lower end of right humerus, initial encounter for closed fracture; S53.104A Unspecified dislocation of right ulnohumeral joint, initial encounter; X50.3XXA Overexertion from repetitive movements, initial encounter; Y93.K1 Activity, walking an animal; Y92.9 Unspecified place or not applicable; Y99.9 Unspecified external cause status | CPT/HCPCS: 99212 ==

== ENCOUNTER 2024-04-26 11:52 | Outpatient (AMB) | payer MEDICARE, SELFPAY ==
--- NOTE | 2024-04-26 12:04 | MHC.PC.OV ---
Vital Signs 04/26/24 12:07 Height 5 ft 7 in Weight 233 lb 4 oz BMI 36.5 BP 120/60 Blood Pressure Location Rt brachial Position Sitting Respiration 16 Pulse 79 Pulse Source Pulse Oximeter Temp 97.6 F Temp Source Oral Pulse Oximetry (%) 96 Oxygen Delivery Method Room Air Intake Visit Reasons: PE Intake Note: PE Is last menstrual period known: No Post menopausal: Yes Patient : No Allergies No Known Allergies Allergy (Verified 04/26/24 12:04) Medication List - Last Reconciled 04/26/24 by Leno Maurice MD acetaminophen 650 mg (2 x 325 mg) PO Q6H PRN 30 days calcium-magnesium 750-465 mg 1 tab PO DAILY cholecalciferol (vitamin D3) 50 mcg PO DAILY cyanocobalamin (vitamin B-12) (Vitamin B-12) 1,000 mcg PO DAILY fluoxetine 40 mg PO DAILY 90 days gabapentin 200 mg (2 x 100 mg) PO BEDTIME 90 days lansoprazole 30 mg PO DAILY@0630 90 days lorazepam 0.5 mg PO DAILY PRN 30 days melatonin 10 mg PO BEDTIME Tobacco use date assessed: 04/26/24 Fall risk assessment: 1 Fall in past year Last assessed Fall Risk: 04/26/24 Dental Screening Dental Screen Date: 04/26/24 Did you have a dental visit in the last 12 months?: Yes Did you have a dental problem in the last 6 months where you did not have access to dental care?: No Was dental information given to patient?: Patient has dentist HPI PE HPI Details 64 y/o female presents for a [facility] with f/u labs and health maintenance. A1c today 6.1% - prior A1c 6.1% as well. No recent labs to review. Recent mammogram in January which was fine. She has a pap smear scheduled in June. [facility] Medical History Trigger thumb, left thumb GERD (gastroesophageal reflux disease) Depression Neck strain Surgical History Status post surgery H/O colonoscopy S/P laparoscopic surgery Social History Housing: House Alcohol intake: current Alcohol intake frequency: a few times a month Alcohol type: wine and hard liquor Comment: Independent with ADLs, fall from dog pulling her. 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 1. Little interest or pleasure in doing things: not at all 2. Feeling down, depressed, or hopeless: not at all 3. Trouble falling or staying asleep, or sleeping too much: not at all 4. Feeling tired or having little energy: not at all 5. Poor appetite or overeating: not at all 6. Feeling bad about yourself - or that you are a failure or have let yourself or your family down: not at all 7. Trouble concentrating on things, such as reading the newspaper or watching television: not at all 8. Moving or speaking so slowly that other people could have noticed. Or the opposite - being so fidgety or restless that you have been moving around a lot more than usual: not at all 9. Thoughts that you would be better off or of hurting yourself in some way: not at all Total score: 0 Depression Screening Interpretation: Negative Depression Screening Done: Yes 98406 - PHQ-9 Billing: Yes Source: Developed by Drs. Arnulfo Briseno, Nona Brady, Jeanmarie Urena and colleagues, with an educational vineet from [employer]. Thrive Questionnaire Date Thrive assessed: 04/26/24 I am a: Patient What is your living situation today?: I have a steady place to live Within the past 12 months, did the food you bought not last and you didn't have the money to get more?: Never true Within the past 12 months, did you worry whether your food would run out before you got money to buy more?: Never true Do you have trouble paying for medicines?: No Do you have trouble getting transportation to medical appointments?: No Do you have trouble paying your heating and electricity bill?: No Do you have trouble taking care of your child, family member or friend?: No Do you have trouble with day-to-day activities such as bathing, preparing meals, shopping, managing finances, etc.?: No Are you currently unemployed and looking for a job?: No Are you interested in more education?: No Please select the resources that you would like help with: None Currently or been in a relationship where the following occur: No concerns reported THRIVE Score: 0 AUDIT C Alcohol Use Questionnaire (AUDIT-C) 1. How often do you have a drink containing alcohol?: 2-4 times a month 2. How many drinks containing alcohol do you have on a typical day when you are drinking?: 1 or 2 3. How often do you have six or more drinks on one occasion?: Never Total Score: 2 HERMINIO-7 AMB Questionnaire HERMINIO-7 Date HERMINIO - 7 assessed: 04/26/24 Feeling nervous, anxious, or on edge: 0 = Not at all Not being able to stop or control worryin = Not at all Worrying too much about different things: 0 = Not at all Trouble relaxin = Not at all Being so restless that it is hard to sit still: 0 = Not at all Becoming easily annoyed or irritable: 0 = Not at all Feeling afraid as if something awful might happen: 0 = Not at all Total HERMINIO-7 score (0-4 normal; 5-9 mild; 10-14 moderate; 15-21 severe): 0 Source: Developed by Drs. Arnulfo Briseno, Nona Brady, Jeanmarie Urena and colleagues, with an educational vineet from [employer]. HERMINIO-7 Assessment Billing HERMINIO-7 Assessment Tool: HERMINIO-7 Assessment 33377 Review of Systems Const Denies chills, Denies fatigue, Denies fever(s), Denies headache(s) and Denies weakness Eyes Denies change in vision ENT Denies dizziness, Denies headache(s), Denies hearing loss, Denies nasal congestion, Denies sinus pain, Denies sinus pressure and Denies sore throat Card Denies chest pain, Denies lightheadedness, Denies dyspnea and Denies other (palpitations) Resp Denies cough, Denies dyspnea and Denies wheezing GI Denies abdominal pain, Denies melena, Denies hematochezia, Denies change in bowel habits, Denies dyspepsia and Denies nausea Denies hematuria and Denies dysuria Musc Denies abnormal gait, Denies myalgias, Denies arthralgias, Denies numbness and Denies tingling Skin/Breast Denies rash, Denies unusual bruising and Denies wounds Neuro Denies abnormal gait, Denies dizziness, Denies headache(s), Denies memory loss, Denies numbness, Denies Sensory deficit (Neuro), Denies tingling and Denies weakness Psych Denies anxiety, Denies depression and Denies memory loss Endo Denies cold intolerance, Denies fatigue, Denies heat intolerance, Denies polydipsia and Denies polyuria Izaiah/Lymph Denies easy bleeding and Denies easy bruising Aller/Immun Denies wheezing Physical exam (Primary Care) Vital Signs: Last Vital Signs Temp 97.6 F 04/26/24 12:07 Pulse 79 04/26/24 12:07 Resp 16 04/26/24 12:07 BP 120/60 04/26/24 12:07 Pulse Ox 96 04/26/24 12:07 Oxygen Delivery Method Room Air 04/26/24 12:07 BMI result Body Mass Index 36.5 Tobacco/Smoking Status: Tobacco use Status Tobacco use date assessed 04/26/24 04/26/24 12:15 Patient Tobacco Use Status Never used Tobacco 04/26/24 12:15 e-Cigarette/Vaping Use Never Used 04/26/24 12:15 PHQ-9: PHQ-9 Score PHQ-9: Total score 0 04/26/24 12:15 Depression Screening Interpretation: Negative Thrive Assessment: Date of Thrive Assessment Date Thrive assessed 04/26/24 04/26/24 12:15 Currently or been in a relationship where the following occur: No concerns reported Const General: no acute distress, well developed, alert and awake Nutritional Appearance: well nourished Orientation/consciousness: patient oriented x3 HENMT Head: Yes normocephalic and Yes atraumatic Ears: hearing grossly normal bilaterally and TM's normal bilaterally General nose exam: Normal external nose present and Normal nares present Mouth: Normal oral and palatal mucosa present and moist mucous membranes Teeth and gingiva: dentition normal Throat: Yes posterior oropharynx normal Eyes General: appearance normal, both eyes and all related structures Pupils: Equal, round and reactive pupils present and Pupil accommodation reflex normal EOM: EOMs intact bilaterally Neck Neck: Yes normal visual inspection, Yes no lymphadenopathy and Yes trachea midline Thyroid: Thyroid normal Carotids: no bruits Lymphatic: no lymphadenopathy noted Chest Chest palpation & inspection: normal inspection of the chest Resp Effort & Inspection: normal respiratory effort Auscultation: clear to auscultation bilaterally Cardio Rate: regular rate Rhythm: regular rhythm Heart sounds: S1 normal heart sound present, S2 normal heart sound present, no gallops, no murmurs and no rubs Bruits: no abdominal aortic bruits and no carotid bruits GI Palpation (GI): No Abdominal aortic bruit present, Soft to palpation, nontender, No hepatosplenomegaly present and No Rebound tenderness present Auscultation: normal bowel sounds General: Yes no CVA tenderness Back/Spine/Pelvis Back: no CVA tenderness Cervical Spine: cervical ROM normal and No Cervical spine tenderness Thoracic/Lumbar Spine: thoraco-lumbar ROM normal, No pain with thoraco-lumbar ROM, No thoracic spinal tenderness and No lumbar spinal tenderness Skin Lesions: no lesions Rashes: no rashes Trauma: no lacerations or abrasions Wounds: no wounds Nails: normal Neuro General: patient oriented x3 Cranial nerves: Yes Equal, round and reactive pupils present Cognition (Neuro): normal cognition Gait exam (Neuro): Normal gait present Motor exam (neuro): 5/5 motor strength present throughout Sensory Exam: No Sensory deficit (Neuro) Deep tendon reflexes (DTR's): Right patellar reflex intensity grade: 2+ and Left patellar reflex intensity grade: 2+ Extrem General: Yes normal to inspection and No edema Psych Appearance: grossly normal Affect: normal affect Attitude: cooperative Thought process: Normal thought process present Coding Level of Care Code Est Pt Level 3 (36501) Est Pt Prev Care >65y(76365) Diagnoses Annual physical exam Z00.00 Prediabetes R73.03 Screening for breast cancer Z12.39 Screening for cervical cancer Z12.4 Screening for colon cancer Z12.11 Screening for osteoporosis Z13.820 Additional Codes HERMINIO-7 Assessment Billing - HERMINIO-7 Assessment Tool: HERMINIO-7 Assessment 48269 ([id number]) PHQ-9 - 67110 - PHQ-9 Billing: Yes ([id number]) Assessment & Plan Assessment & Plan (1) Annual physical exam: Code(s): Z00.00 - Encounter for general adult medical examination without abnormal findings Category: Medical Plan: 64-year-old?female?presents?for?complete?physical?exam Encouraged?healthy?diet?and?plenty?of?exercise (2) Prediabetes: Code(s): R73.03 - Prediabetes Category: Medical Plan: A1c?stable?at?6.1%;?pre?diabetes Continue?to?work?at?a?diet?low?in?sugars?and?starches (3) Screening for breast cancer: Code(s): Z12.39 - Encounter for other screening for malignant neoplasm of breast Category: Medical Plan: Mammogram?showed?no?evidence?malignancy Recommended?annual?screening She?is?up-to-date (4) Screening for cervical cancer: Code(s): Z12.4 - Encounter for screening for malignant neoplasm of cervix Category: Medical Plan: She?says?she?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 (5) Screening for colon cancer: Code(s): Z12.11 - Encounter for screening for malignant neoplasm of colon Category: Medical Plan: Patient?says?she?had?colonoscopy?at?[facility]?a?few?years?ago?and?was?told?to?follow-up?in?10?years Up-to-date Will?request?report (6) Screening for osteoporosis: Code(s): Z13.820 - Encounter for screening for osteoporosis Category: Medical Plan: Bone?density?test?was?normal?at?last?check?a?year?ago.??Up-to-date
[2024-04-26 12:07] VITALS: BP 120/60; PULSE 79; RESP 16; TEMP 36.4; O2SAT 96; BMI 36.5
== END 2024-04-26 17:05 | disposition home or self-care (01) ==
PROVIDERS: PCP Family Medicine; Visit Provider Family Medicine
DX: Z00.00 Encounter for general adult medical examination without abnormal findings (principal); R73.03 Prediabetes; Z12.39 Encounter for other screening for malignant neoplasm of breast; Z12.4 Encounter for screening for malignant neoplasm of cervix; Z12.11 Encounter for screening for malignant neoplasm of colon; Z13.820 Encounter for screening for osteoporosis

== ENCOUNTER → 2024-04-26 11:52 | Outpatient (BNVA) | payer MEDICARE, SELFPAY | PROVIDERS: PCP Family Medicine; Visit Provider Family Medicine | DX: Z00.00 Encounter for general adult medical examination without abnormal findings (principal); R73.03 Prediabetes | CPT/HCPCS: 96127; 99397 ==

== ENCOUNTER 2024-04-28 07:10 | Outpatient (REF) | payer MEDICARE, SELFPAY ==
[2024-04-28 07:30] LABS: MANUAL DIFF FLAG NO
[2024-04-28 08:02] LABS: Basophils Absolute Auto 0.1 X10*3/uL (0.0-0.2); Basophils Percent Auto 0.8 % (0-2); Eosinophils Absolute Auto 0.2 X10*3/uL (0.0-0.4); Eosinophils Percent Auto 1.9 % (0-4); Hemoglobin 13.5 g/dl (12.0-16.0); Imm Gran Abs Auto 0.02 X10*3/uL (0.00-0.03); Imm Gran Pct Auto 0.3 % (0.0-0.4); Lymphocytes Absolute Auto 1.7 X10*3/uL (1.2-4.9); Lymphocytes Percent Auto 20.9 % (20-40); Mean Corpuscular HGB Conc 32.9 g/dl (31.0-35.0); Mean Corpuscular Hemoglobin 27.7 pg (27.0-33.0); Mean Corpuscular Volume 84.2 fL (80.0-98.0); Monocytes Absolute Auto 0.8 X10*3/uL (0.1-1.2); Monocytes Percent Auto 9.4 % (2-11); Neutrophils Absolute Auto 5.3 x10*3/uL (2.0-8.3); Neutrophils Percent Auto 66.7 % (45-73); Platelet Count 422 X10*3/uL (160-400); Red Blood Count 4.87 X10*6/uL (4.20-5.50); Red Cell Distribution Width 14.5 % (11.0-16.0)
[2024-04-28 08:18] LABS: Appearance Urine Clear; Color Urine Yellow; Glucose Urine UA Negative (Negative); Leukocyte Esterase Urine Moderate (2+) (Negative); Nitrite Urine Negative (Negative); PH 5.5 (5.0-9.0); Specific Gravity - Urine 1.025 (1.005-1.025); UMIC TRIGGER UA YES; Urine Blood Negative (Negative); Urine Ketones Negative (Negative); Urine Protein Negative (Neg-Trace)
[2024-04-28 08:24] LABS: Alanine Aminotransferase 24 U/L (0-31); Alkaline Phosphatase 80 U/L (39-117); Anion Gap 12 (12-20); Aspartate Amino Transferase 22 U/L (5-31); Bilirubin Total 0.4 mg/dL (0.0-1.0); Blood Urea Nitrogen 17 mg/dL (9-16); Calcium 9.9 mg/dL (8.4-10.2); Carbon Dioxide 27 mmol/L (22-29); Chloride 106 mmol/L (96-108); Cholesterol 166 mg/dL (<200); Estimated Glomerular Filt Rate > 60; Glucose Fasting 119 mg/dL (60-99); HDL Cholesterol 37 mg/dL (>40); LDL Cholesterol Calculated 108 mg/dL (<100); Sodium 141 mmol/L (135-145); Total Protein 7.7 g/dL (6.5-8.0); Triglycerides 107 mg/dL (<150)
[2024-04-28 08:29] LABS: Bacteria Urine None Seen (None Seen); Calcium Oxalate Crystals Urine Present; Hyaline Casts Urine 0-2 /LPF (0-2); RBC Urine 0-2 /HPF (0-2); Squamous Epithelial Cell Urine 0-2 /HPF (0-2)
[2024-04-28 08:30] LABS: Creatinine Urine 214.38 mg/dL; Microalbum/Creatinine Ratio Ur 7.4 ug/mg cr (<30)
[2024-04-28 08:41] LABS: TSH reflex Free T4 3.05 uIU/mL (0.32-4.0); Vitamin D 25-OH Total 40.6 ng/mL (>30)
[2024-04-28 08:49] LABS: Folate 15.6 ng/mL (> or = 4.0); Vitamin B12 933 pg/mL (200-900)
== END 2024-04-28 07:11 | disposition home or self-care (01) ==
LOC: HO.LAB 07:10
PROVIDERS: PCP Family Medicine; Visit Provider Family Medicine
DX: Z00.00 Encounter for general adult medical examination without abnormal findings (principal); I10 Essential (primary) hypertension; E55.9 Vitamin D deficiency, unspecified; E53.8 Deficiency of other specified B group vitamins
CPT/HCPCS: 36415; 80053; 80061; 81001; 81003; 82043; 82306; 82570; 82607; 82746; 84443; 85025

== ENCOUNTER 2024-06-15 16:39 | Outpatient (AMB) | payer MEDICARE, SELFPAY ==
--- NOTE | 2024-06-15 16:34 | MHC.PC.OV ---
Intake Visit Reasons: Lab results [phone] Allergies No Known Allergies Allergy (Verified 06/15/24 16:35) Medication List - Last Reconciled 06/15/24 by Leno Maurice MD acetaminophen 650 mg (2 x 325 mg) PO Q6H PRN 30 days calcium-magnesium 750-465 mg 1 tab PO DAILY cholecalciferol (vitamin D3) 50 mcg PO DAILY cyanocobalamin (vitamin B-12) (Vitamin B-12) 1,000 mcg PO DAILY fluoxetine 40 mg PO DAILY 90 days gabapentin 200 mg (2 x 100 mg) PO BEDTIME 90 days lansoprazole 30 mg PO DAILY@0630 90 days lorazepam 0.5 mg PO DAILY PRN 30 days melatonin 10 mg PO BEDTIME Tobacco use date assessed: 04/26/24 Dental Screening Dental Screen Date: 04/26/24 HPI Lab results [phone] HPI Details 64 y/o female presents to f/u labs via telemedicine. Fasting glucose of 119. Triglycerides 107. TC 166. LDL 108. HDL low at 37. HPI Comments History of Present Illness Details Documentation assistance for Leno Maurice MD, was provided by Neto Newton,? Technical Service Engineer on 06/15/2024 at 5:09 PM EST. I, Dr. Maurice, have read, observed, and verified documentation. ?? PFSH Medical History Trigger thumb, left thumb GERD (gastroesophageal reflux disease) Depression Neck strain Surgical History Status post surgery H/O colonoscopy S/P laparoscopic surgery Social History Housing: House Alcohol intake: current Alcohol intake frequency: a few times a month Alcohol type: wine and hard liquor Comment: Independent with ADLs, fall from dog pulling her. 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 Arnulfo Briseno, Nona Brady, Jeanmarie Urena and colleagues, with an educational vineet from [email or web address]. Physical exam (Primary Care) Tobacco/Smoking Status: Tobacco use Status Tobacco use date assessed 04/26/24 06/15/24 16:37 Patient Tobacco Use Status Never used Tobacco 06/15/24 16:37 e-Cigarette/Vaping Use Never Used 06/15/24 16:37 Thrive Assessment: Date of Thrive Assessment Date Thrive assessed 04/26/24 06/15/24 16:37 Telehealth Telehealth Telehealth Platform: Telephone Location of provider rendering services: practice address Location of patient: address on file Patient Identification confirmed using: Name, : Yes Telehealth method: voice only Patient verbally consented to treatment: Yes Patient verbally consented to billing insurance company: Yes Patient informed of any privacy concerns related to visit: Yes Minutes spent on Phone/Video with Pt.: 14 Coding Level of Care Code Tele Est Pt Level 2 (03111) Diagnoses Prediabetes R73.03 Elevated LDL cholesterol level E78.00 Immunization counseling Z71.85 Assessment & Plan Assessment & Plan (1) Prediabetes: Code(s): R73.03 - Prediabetes Category: Medical Plan: Fasting?blood?sugar?is?elevated.??Last?A1c?6.1% Will?continue?to?monitor Encouraged?diet?low?in?sugars?and?starches (2) Elevated LDL cholesterol level: Code(s): E78.00 - Pure hypercholesterolemia, unspecified Category: Medical Plan: Mildly?elevated?LDL?with?low?HDL Encouraged?lifestyle?changes (3) Immunization counseling: Code(s): Z71.85 - Encounter for immunization safety counseling Category: Medical Plan: Recommended pneumonia?20 Recommended?RSV Recommended?Shingrix Up-to-date?with?flu?shot Orders: Orders Hemoglobin A1c Today R73.01 - Impaired fasting glucose, R73.03 - Prediabetes Comprehensive [place]. Panel Fast Today R73.03 - Prediabetes, Z00.00 - Encounter for general adult medical examination without abnormal findings Complete Blood Count Auto Diff Today R79.89 - Other specified abnormal findings of blood chemistry, Z00.00 - Encounter for general adult medical examination without abnormal findings Microalbumin, Random (w Creat) Today I10 - Essential (primary) hypertension, R73.03 - Prediabetes
== END 2024-06-15 17:05 | disposition home or self-care (01) ==
LOC: HO.HMCFM 16:39
PROVIDERS: PCP Family Medicine; Visit Provider Family Medicine
DX: R73.03 Prediabetes (principal); E78.00 Pure hypercholesterolemia, unspecified; Z71.85 Encounter for immunization safety counseling

== ENCOUNTER → 2024-06-15 16:39 | Outpatient (BNVA) | payer MEDICARE, SELFPAY | PROVIDERS: PCP Family Medicine; Visit Provider Family Medicine ==

== ENCOUNTER 2024-09-12 06:44 | Outpatient (REF) | payer MEDICARE, SELFPAY ==
[2024-09-12 06:56] LABS: MANUAL DIFF FLAG NO
[2024-09-12 07:21] LABS: Basophils Absolute Auto 0.1 X10*3/uL (0.0-0.2); Eosinophils Absolute Auto 0.2 X10*3/uL (0.0-0.4); Eosinophils Percent Auto 2.1 % (0-4); Hematocrit 42.7 % (37.0-47.0); Hemoglobin 13.8 g/dl (12.0-16.0); Imm Gran Abs Auto 0.04 X10*3/uL (0.00-0.03); Imm Gran Pct Auto 0.6 % (0.0-0.4); Lymphocytes Absolute Auto 1.5 X10*3/uL (1.2-4.9); Lymphocytes Percent Auto 21.7 % (20-40); Mean Corpuscular HGB Conc 32.3 g/dl (31.0-35.0); Mean Corpuscular Hemoglobin 27.4 pg (27.0-33.0); Mean Corpuscular Volume 84.9 fL (80.0-98.0); Mean Platelet Volume 9.4 fL (9.4-12.3); Monocytes Absolute Auto 0.8 X10*3/uL (0.1-1.2); Neutrophils Absolute Auto 4.5 x10*3/uL (2.0-8.3); Neutrophils Percent Auto 63.6 % (45-73); Platelet Count 384 X10*3/uL (160-400); Red Blood Count 5.03 X10*6/uL (4.20-5.50); Red Cell Distribution Width 14.6 % (11.0-16.0)
[2024-09-12 07:27] LABS: Estimated Average Glucose 123 mg/dL; Hemoglobin A1C 149.3191 umol/L; Hemoglobin A1c % 5.9 % (<6.0); Total Hemoglobin (HGBA1C) 3604.6237 umol/L
[2024-09-12 07:37] LABS: Appearance Urine Clear; Color Urine Yellow; Glucose Urine UA Negative (Negative); Leukocyte Esterase Urine Moderate (2+) (Negative); Nitrite Urine Negative (Negative); PH 5.5 (5.0-9.0); Specific Gravity - Urine 1.015 (1.005-1.025); UMIC TRIGGER UA YES; Urine Blood Negative (Negative); Urine Ketones Negative (Negative); Urine Protein Negative (Neg-Trace)
[2024-09-12 07:40] LABS: Bacteria Urine None Seen (None Seen); Hyaline Casts Urine 0-2 /LPF (0-2); RBC Urine 0-2 /HPF (0-2); WBC Urine 21-50 /HPF (0-5)
[2024-09-12 08:04] LABS: Alanine Aminotransferase 24 U/L (0-31); Albumin Level 4.1 g/dL (3.5-5.0); Alkaline Phosphatase 78 U/L (39-117); Anion Gap 12 (12-20); Aspartate Amino Transferase 25 U/L (5-31); Bilirubin Total 0.5 mg/dL (0.0-1.0); Blood Urea Nitrogen 16 mg/dL (9-16); Calcium 9.3 mg/dL (8.4-10.2); Carbon Dioxide 26 mmol/L (22-29); Chloride 105 mmol/L (96-108); Estimated Glomerular Filt Rate > 60; Glucose Fasting 116 mg/dL (60-99); Potassium 4.3 mmol/L (3.3-5.1); Sodium 139 mmol/L (135-145); Total Protein 7.6 g/dL (6.5-8.0)
[2024-09-12 08:38] LABS: Creatinine Urine 75.79 mg/dL; Microalbum/Creatinine Ratio Ur 15.8 ug/mg cr (<30)
== END 2024-09-12 06:45 | disposition home or self-care (01) ==
LOC: HO.LAB 06:44
PROVIDERS: PCP Family Medicine; Visit Provider Family Medicine
DX: Z00.00 Encounter for general adult medical examination without abnormal findings (principal); R73.01 Impaired fasting glucose; R73.03 Prediabetes; I10 Essential (primary) hypertension; R79.89 Other specified abnormal findings of blood chemistry
CPT/HCPCS: 36415; 80053; 81001; 82043; 82570; 83036; 85025

== ENCOUNTER 2024-09-16 08:27 | Outpatient (AMB) | payer MEDICARE, SELFPAY ==
--- NOTE | 2024-09-16 08:34 | MHC.PC.OV ---
Vital Signs 09/16/24 08:39 Height 5 ft 7 in Weight 228 lb BMI 35.7 BP 116/72 Blood Pressure Location Lt brachial Position Sitting Respiration 14 Pulse 96 Pulse Source Pulse Oximeter Temp 97.8 F Temp Source Temporal Artery Scan Pulse Oximetry (%) 95 Oxygen Delivery Method Room Air Intake Visit Reasons: f/u pre-diabetes, labs Intake Note: Kayla presents in the office today for a follow up to her most recent lab results. Allergies No Known Allergies Allergy (Verified 09/16/24 08:36) Medication List - Last Reconciled 09/16/24 by Leno Maurice MD acetaminophen 650 mg (2 x 325 mg) PO Q6H PRN 30 days calcium-magnesium 750-465 mg 1 tab PO DAILY cholecalciferol (vitamin D3) 50 mcg PO DAILY cyanocobalamin (vitamin B-12) (Vitamin B-12) 1,000 mcg PO DAILY fluoxetine 20 mg PO DAILY 90 days fluoxetine 40 mg PO DAILY 90 days gabapentin 200 mg (2 x 100 mg) PO BEDTIME 90 days lansoprazole 30 mg PO DAILY@0630 90 days lorazepam 0.5 mg PO DAILY PRN 30 days melatonin 10 mg PO BEDTIME Tobacco use date assessed: 09/16/24 Fall risk assessment: No Falls in past year Last assessed Fall Risk: 09/16/24 Dental Screening Dental Screen Date: 09/16/24 Did you have a dental visit in the last 12 months?: Yes Did you have a dental problem in the last 6 months where you did not have access to dental care?: No Was dental information given to patient?: Patient has dentist HPI f/u pre-diabetes, labs HPI Details Patient?presents?to?follow-up elevated?fasting?blood?sugars/pre?diabetes. She?is?working?on?watching?sugars?and?starches?in?her?diet. She?recently?retired?and?has?begun?counting?calories?and?watching?what?she?eats.??She?is?trying?to?stay?active?move?more. She?is?taking?fluoxetine?and?would?like?to?decrease?her?dose?for?the?summertime.??She?is?also?wondering?about?how?she?could?consider?weaning?off?of?this?medication?at?some?point. We?also?discussed?lansoprazole?and?she?is?wondering?if?she?could?consider?discontinuing?this?at?some?point. She?did?have?a?history?of erosions?about?15?years?ago. [facility] Medical History Trigger thumb, left thumb GERD (gastroesophageal reflux disease) Depression Neck strain Surgical History Status post surgery H/O colonoscopy S/P laparoscopic surgery Social History (Updated 09/16/24 @ 08:39 by Mayte Cunningham MA) Housing: House Alcohol intake: current Alcohol intake frequency: a few times a month Alcohol type: wine and hard liquor Comment: Independent with ADLs, fall from dog pulling her. 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 1. Little interest or pleasure in doing things: not at all 2. Feeling down, depressed, or hopeless: not at all 3. Trouble falling or staying asleep, or sleeping too much: not at all 4. Feeling tired or having little energy: not at all 5. Poor appetite or overeating: not at all 6. Feeling bad about yourself - or that you are a failure or have let yourself or your family down: not at all 7. Trouble concentrating on things, such as reading the newspaper or watching television: not at all 8. Moving or speaking so slowly that other people could have noticed. Or the opposite - being so fidgety or restless that you have been moving around a lot more than usual: not at all 9. Thoughts that you would be better off or of hurting yourself in some way: not at all Total score: 0 Depression Screening Interpretation: Negative Depression Screening Done: Yes 15327 - PHQ-9 Billing: Patient declined-do not bill Source: Developed by Clinton Stronget B.W. Jose Antonio, Jeanmarie Urena and colleagues, with an educational vineet from [employer]. Thrive Questionnaire Date Thrive assessed: 09/16/24 I am a: Patient What is your living situation today?: I have a steady place to live Within the past 12 months, did the food you bought not last and you didn't have the money to get more?: Never true Within the past 12 months, did you worry whether your food would run out before you got money to buy more?: Never true Do you have trouble paying for medicines?: No Do you have trouble getting transportation to medical appointments?: No Do you have trouble paying your heating and electricity bill?: No Do you have trouble taking care of your child, family member or friend?: No Do you have trouble with day-to-day activities such as bathing, preparing meals, shopping, managing finances, etc.?: No Are you currently unemployed and looking for a job?: No Are you interested in more education?: No Please select the resources that you would like help with: None Currently or been in a relationship where the following occur: No concerns reported THRIVE Score: 0 AUDIT C Alcohol Use Questionnaire (AUDIT-C) 1. How often do you have a drink containing alcohol?: 2-4 times a month 2. How many drinks containing alcohol do you have on a typical day when you are drinking?: 1 or 2 3. How often do you have six or more drinks on one occasion?: Never Total Score: 2 Score Reviewed/Action Taken: No HERMINIO-7 AMB Questionnaire HERMINIO-7 Date HERMINIO - 7 assessed: 09/16/24 Feeling nervous, anxious, or on edge: 0 = Not at all Not being able to stop or control worryin = Not at all Worrying too much about different things: 0 = Not at all Trouble relaxin = Not at all Being so restless that it is hard to sit still: 0 = Not at all Becoming easily annoyed or irritable: 0 = Not at all Feeling afraid as if something awful might happen: 0 = Not at all Total HERMINIO-7 score (0-4 normal; 5-9 mild; 10-14 moderate; 15-21 severe): 0 Source: Developed by Drs. Arnulfo Briseno, Nona Brady, Jeanmarie Urena and colleagues, with an educational vineet from [employer]. HERMINIO-7 Assessment Billing HERMINIO-7 Assessment Tool: HERMINIO-7 Assessment 23718 Review of Systems Const Denies chills, Denies fatigue, Denies fever(s), Denies headache(s) and Denies weakness ENT Denies dizziness and Denies headache(s) Card Denies chest pain, Denies lightheadedness, Denies dyspnea and Denies other (Palpitations) Resp Denies cough, Denies dyspnea, Denies wheezing and Denies other ( shortness of breath) Musc Denies numbness and Denies tingling Neuro Denies dizziness, Denies headache(s), Denies numbness, Denies tingling, Denies paresthesias and Denies weakness Psych Denies anxiety and Denies depression Endo Denies fatigue Aller/Immun Denies wheezing Physical exam (Primary Care) Vital Signs: Last Vital Signs Temp 97.8 F 09/16/24 08:39 Pulse 96 09/16/24 08:39 Resp 14 09/16/24 08:39 BP 116/72 09/16/24 08:39 Pulse Ox 95 09/16/24 08:39 Oxygen Delivery Method Room Air 09/16/24 08:39 BMI result Body Mass Index 35.7 Tobacco/Smoking Status: Tobacco use Status Tobacco use date assessed 09/16/24 09/16/24 08:44 Patient Tobacco Use Status Never used Tobacco 09/16/24 08:39 e-Cigarette/Vaping Use Never Used 09/16/24 08:39 PHQ-9: PHQ-9 Score PHQ-9: Total score 0 09/16/24 08:44 Depression Screening Interpretation: Negative Thrive Assessment: Date of Thrive Assessment Date Thrive assessed 09/16/24 09/16/24 08:44 Currently or been in a relationship where the following occur: No concerns reported Const General: no acute distress and well developed Nutritional Appearance: well nourished Orientation/consciousness: patient oriented x3 HENMT Head: Yes normocephalic and Yes atraumatic Eyes General: appearance normal, both eyes and all related structures Pupils: Equal, round and reactive pupils present EOM: EOMs intact bilaterally Resp Effort & Inspection: normal respiratory effort Auscultation: clear to auscultation bilaterally Cardio Rate: regular rate Rhythm: regular rhythm Heart sounds: S1 normal heart sound present, S2 normal heart sound present, no gallops, no murmurs and no rubs Neuro General: patient oriented x3 and gait normal Cranial nerves: Yes Equal, round and reactive pupils present Psych Affect: normal affect Coding Level of Care Code Est Pt Level 4 (86439) Diagnoses Prediabetes R73.03 Anxiety with depression F41.8 GERD (gastroesophageal reflux disease) K21.9 Elevated LDL cholesterol level E78.00 Additional Codes HERMINIO-7 Assessment Billing - HERMINIO-7 Assessment Tool: HERMINIO-7 Assessment 53229 ([id number]) Assessment & Plan Assessment & Plan (1) Prediabetes: Code(s): R73.03 - Prediabetes Category: Medical Plan: A1c?5.9%. ?Still?in?pre?diabetes?range Encouraged?diet?low?in?sugars?and?starches Encouraged?weight?loss?and?exercise (2) Anxiety with depression: Code(s): F41.8 - Other specified anxiety disorders Category: Medical Plan: Currently?stable?on?fluoxetine. We?discussed?that?she?could?continue?weaning?down?on?his?medication?and?could?consider?discontinuing?it?if?she?feels?mentally?stable?to?do?so. She?has?decreasing?it?more?than?sometime?and?will?consider?this?further. She?can?call?or?return?to?the?office?if?she?would?like?to?try?weaning?medication. (3) GERD (gastroesophageal reflux disease): Code(s): K21.9 - Gastro-esophageal reflux disease without esophagitis Category: Medical Plan: Patient?has?been?taking?lansoprazole?for?15?years. She?has?had?GERD?with?erosions?in?the?distant?past. She?can?try?taking?his?medication?every?other?day?and?she?can?use?an?anticipatory?strategy?if?she suspect?she?will?have?trigger?foods?or?large?amounts?of?food?on?that?day. She?will?resume?the?medication?daily?if?having?symptoms. (4) Elevated LDL cholesterol level: Code(s): E78.00 - Pure hypercholesterolemia, unspecified Category: Medical Plan: Her?LDL?cholesterol?was?slightly?above?goal?of?100?at?last?check Will?recheck?this?prior?to?next?visit We?discussed?a?diet?low?in?saturated?fats?and?cholesterol. Orders: Orders Comprehensive [place]. Panel Fast Today E78.6 - Lipoprotein deficiency, Z00.00 - Encounter for general adult medical examination without abnormal findings Medications: New fluoxetine 20 mg PO DAILY 90 days 90 caps 2RF Refilled lansoprazole 30 mg PO DAILY@0630 90 days 90 caps 3RF
[2024-09-16 08:39] VITALS: BP 116/72; PULSE 96; RESP 14; TEMP 36.6; O2SAT 95; BMI 35.7
== END 2024-09-16 09:18 | disposition home or self-care (01) ==
LOC: HO.HMCFM 08:28
PROVIDERS: PCP Family Medicine; Visit Provider Family Medicine
DX: R73.03 Prediabetes (principal); F41.8 Other specified anxiety disorders; K21.9 Gastro-esophageal reflux disease without esophagitis; E78.00 Pure hypercholesterolemia, unspecified

== ENCOUNTER → 2024-09-16 08:27 | Outpatient (BNVA) | payer MEDICARE, SELFPAY | PROVIDERS: PCP Family Medicine; Visit Provider Family Medicine | DX: R73.03 Prediabetes (principal); F41.8 Other specified anxiety disorders; K21.9 Gastro-esophageal reflux disease without esophagitis; E78.00 Pure hypercholesterolemia, unspecified; E78.6 Lipoprotein deficiency | CPT/HCPCS: 96127; 99212 ==

== ENCOUNTER 2024-12-09 08:24 | Outpatient (REF) | payer MEDICARE, SELFPAY ==
[2024-12-09 09:48] LABS: Alanine Aminotransferase 19 U/L (0-31); Albumin Level 4.1 g/dL (3.5-5.0); Alkaline Phosphatase 82 U/L (39-117); Anion Gap 10 (12-20); Aspartate Amino Transferase 20 U/L (5-31); Blood Urea Nitrogen 16 mg/dL (9-16); Calcium 9.2 mg/dL (8.4-10.2); Carbon Dioxide 27 mmol/L (22-29); Chloride 106 mmol/L (96-108); Estimated Glomerular Filt Rate > 60; Potassium 4.8 mmol/L (3.3-5.1); Sodium 138 mmol/L (135-145); Total Protein 7.6 g/dL (6.5-8.0)
== END 2024-12-09 08:25 | disposition home or self-care (01) ==
LOC: HO.LAB 08:24
PROVIDERS: PCP Family Medicine; Visit Provider Family Medicine
DX: Z00.00 Encounter for general adult medical examination without abnormal findings (principal); E78.6 Lipoprotein deficiency
CPT/HCPCS: 36415; 80053

== ENCOUNTER 2024-12-19 08:32 | Outpatient (AMB) | payer MEDICARE, SELFPAY ==
[2024-12-19 08:37] VITALS: BP 128/74; PULSE 83; RESP 16; TEMP 36.1; O2SAT 95; BMI 36.4
--- NOTE | 2024-12-19 08:37 | A.OFFPC_ITS ---
Vital Signs 12/19/24 08:37 Height 5 ft 7 in Weight 232 lb 6 oz BMI 36.4 BP 128/74 Blood Pressure Location Lt brachial Position Sitting Respiration 16 Pulse 83 Pulse Source Pulse Oximeter Temp 97.0 F Temp Source Temporal Artery Scan Pulse Oximetry (%) 95 Oxygen Delivery Method Room Air Intake Visit Reasons: f/u pre-diabetes, labs Allergies No Known Allergies Allergy (Verified 12/19/24 08:40) Medication List - Last Reconciled 12/19/24 by Leno Maurice MD acetaminophen 650 mg (2 x 325 mg) PO Q6H PRN 30 days calcium-magnesium 750-465 mg 1 tab PO DAILY cholecalciferol (vitamin D3) 50 mcg PO DAILY cyanocobalamin (vitamin B-12) (Vitamin B-12) 1,000 mcg PO DAILY fluoxetine 20 mg PO DAILY 90 days fluoxetine 40 mg PO DAILY 90 days gabapentin 200 mg (2 x 100 mg) PO BEDTIME 90 days lansoprazole 30 mg PO DAILY@0630 90 days lorazepam 0.5 mg PO DAILY PRN 30 days melatonin 10 mg PO BEDTIME Tobacco use date assessed: 12/19/24 Fall risk assessment: No Falls in past year Last assessed Fall Risk: 12/19/24 Dental Screening Dental Screen Date: 12/19/24 Did you have a dental visit in the last 12 months?: Yes Did you have a dental problem in the last 6 months where you did not have access to dental care?: No Was dental information given to patient?: Patient has dentist HPI f/u pre-diabetes, labs HPI Details Patient presents to follow-up pre diabetes and chronic conditions. She continues working on a diet lower in sugars and starches but says that she has had difficulty continuing with this over the last month. She notes that some of it is secondary to problems with her mood. Patient tried decreasing fluoxetine but mood significantly worsened and she is back to taking 20 mg daily. She says this is still helpful. Taking lansoprazole as prescribed and this is controlling her symptoms She received a Cologuard test from her insurance but she says she is still up-to-date with her colonoscopies through [facility] Medical History Trigger thumb, left thumb GERD (gastroesophageal reflux disease) Depression Neck strain Surgical History Status post surgery H/O colonoscopy S/P laparoscopic surgery Social History Housing: House Alcohol intake: current Alcohol intake frequency: a few times a month Alcohol type: wine and hard liquor Comment: Independent with ADLs, fall from dog pulling her. 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 1. Little interest or pleasure in doing things: not at all 2. Feeling down, depressed, or hopeless: not at all 3. Trouble falling or staying asleep, or sleeping too much: not at all 4. Feeling tired or having little energy: not at all 5. Poor appetite or overeating: not at all 6. Feeling bad about yourself - or that you are a failure or have let yourself or your family down: not at all 7. Trouble concentrating on things, such as reading the newspaper or watching television: not at all 8. Moving or speaking so slowly that other people could have noticed. Or the opposite - being so fidgety or restless that you have been moving around a lot more than usual: not at all 9. Thoughts that you would be better off or of hurting yourself in some way: not at all Total score: 0 Depression Screening Interpretation: Negative Depression Screening Done: Yes 47100 - PHQ-9 Billing: Patient declined-do not bill Source: Developed by Drs. Arnulfo Briseno, Nona Brady, Jeanmarie Urena and colleagues, with an educational vineet from [employer] Thrive Questionnaire Date Thrive assessed: 09/16/24 I am a: Patient What is your living situation today?: I have a steady place to live Within the past 12 months, did the food you bought not last and you didn't have the money to get more?: Never true Within the past 12 months, did you worry whether your food would run out before you got money to buy more?: Never true Do you have trouble paying for medicines?: No Do you have trouble getting transportation to medical appointments?: No Do you have trouble paying your heating and electricity bill?: No Do you have trouble taking care of your child, family member or friend?: No Do you have trouble with day-to-day activities such as bathing, preparing meals, shopping, managing finances, etc.?: No Are you currently unemployed and looking for a job?: No Are you interested in more education?: No Please select the resources that you would like help with: None Currently or been in a relationship where the following occur: No concerns reported THRIVE Score: 0 AUDIT C Alcohol Use Questionnaire (AUDIT-C) 1. How often do you have a drink containing alcohol?: 2-4 times a month 2. How many drinks containing alcohol do you have on a typical day when you are drinking?: 1 or 2 3. How often do you have six or more drinks on one occasion?: Never Total Score: 2 Score Reviewed/Action Taken: No HERMINIO-7 AMB Questionnaire HERMINIO-7 Date HERMINIO - 7 assessed: 09/16/24 Feeling nervous, anxious, or on edge: 0 = Not at all Not being able to stop or control worryin = Not at all Worrying too much about different things: 0 = Not at all Trouble relaxin = Not at all Being so restless that it is hard to sit still: 0 = Not at all Becoming easily annoyed or irritable: 0 = Not at all Feeling afraid as if something awful might happen: 0 = Not at all Total HERMINIO-7 score (0-4 normal; 5-9 mild; 10-14 moderate; 15-21 severe): 0 Source: Developed by Drs. Arnulfo Briseno, Nona Brady, Jeanmarie Urena and colleagues, with an educational vineet from [employer] Review of Systems Const Denies chills, Denies fatigue, Denies fever(s), Denies headache(s) and Denies weakness ENT Denies dizziness and Denies headache(s) Card Denies chest pain, Denies lightheadedness, Denies dyspnea and Denies other (Palpitations) Resp Denies cough, Denies dyspnea, Denies wheezing and Denies other ( shortness of breath) Musc Denies numbness and Denies tingling Neuro Denies dizziness, Denies headache(s), Denies numbness, Denies tingling, Denies paresthesias and Denies weakness Psych Details: Anxiety and depression but controlled with fluoxetine 20 mg daily Reports anxiety and Reports depression Endo Denies fatigue Aller/Immun Denies wheezing Physical exam (Primary Care) Vital Signs: Last Vital Signs Temp 97.0 F 12/19/24 08:37 Pulse 83 12/19/24 08:37 Resp 16 12/19/24 08:37 BP 128/74 12/19/24 08:37 Pulse Ox 95 12/19/24 08:37 Oxygen Delivery Method Room Air 12/19/24 08:37 BMI result Body Mass Index 36.4 Tobacco/Smoking Status: Tobacco use Status Tobacco use date assessed 12/19/24 12/19/24 08:42 Patient Tobacco Use Status Never used Tobacco 12/19/24 08:42 e-Cigarette/Vaping Use Never Used 12/19/24 08:42 PHQ-9: PHQ-9 Score PHQ-9: Total score 0 12/19/24 08:53 Depression Screening Interpretation: Negative Thrive Assessment: Date of Thrive Assessment Date Thrive assessed 09/16/24 12/19/24 08:42 Currently or been in a relationship where the following occur: No concerns reported Const General: no acute distress and well developed Nutritional Appearance: well nourished Orientation/consciousness: patient oriented x3 HENMT Head: Yes normocephalic and Yes atraumatic Eyes General: appearance normal, both eyes and all related structures Pupils: Equal, round and reactive pupils present EOM: EOMs intact bilaterally Resp Effort & Inspection: normal respiratory effort Auscultation: clear to auscultation bilaterally Cardio Rate: regular rate Rhythm: regular rhythm Heart sounds: S1 normal heart sound present, S2 normal heart sound present, no gallops, no murmurs and no rubs Neuro General: patient oriented x3 and gait normal Cranial nerves: Yes Equal, round and reactive pupils present Psych Affect: normal affect Results AMB Hemoglobin A1c AMB Hemoglobin A1c 6.0 % Last Edit by Valarie Lopez CMA on 12/19/24 08:52 Results Reviewed Results Reviewed: Laboratory Last Values Hgb A1c (Clinic) 6.0 % (4.0-6.0) 12/19/24 08:46 Coding Level of Care Code Est Pt Level 4 (87891) Diagnoses Prediabetes R73.03 Anxiety with depression F41.8 Chronic GERD K21.9 Elevated LDL cholesterol level E78.00 Assessment & Plan Assessment & Plan (1) Prediabetes: Code(s): R73.03 - Prediabetes Category: Medical Plan: A1c has climbed from 5.9% to 6.0%. Still in pre diabetes range Encouraged diet lower in sugars and starches (2) Anxiety with depression: Code(s): F41.8 - Other specified anxiety disorders Category: Medical Plan: Patient had wanted to try weaning off of fluoxetine but was unable to do so due to worsening mood when she had tried. She will continue fluoxetine as prescribed (3) Chronic GERD: Code(s): K21.9 - Gastro-esophageal reflux disease without esophagitis Category: Medical Plan: Controlled with lansoprazole She is followed by Gastroenterology and [facility] She says her last colonoscopy was at age 58 and she was told to follow-up at age 68. Up-to-date (4) Elevated LDL cholesterol level: Code(s): E78.00 - Pure hypercholesterolemia, unspecified Category: Medical Plan: Still working on a diet lower in saturated fats and cholesterol. We will recheck lipids at next visit Orders: Orders Lipid Panel Today Z00.00 - Encounter for general adult medical examination without abnormal findings Hemoglobin A1c Today R73.01 - Impaired fasting glucose AMB Hemoglobin A1c Today Z13.9 - Encounter for screening, unspecified Comprehensive [place]. Panel Fast Today Z00.00 - Encounter for general adult medical examination without abnormal findings
== END 2024-12-19 09:05 | disposition home or self-care (01) ==
LOC: HO.HMCFM 08:32
PROVIDERS: PCP Family Medicine; Visit Provider Family Medicine
DX: R73.03 Prediabetes (principal); F41.8 Other specified anxiety disorders; K21.9 Gastro-esophageal reflux disease without esophagitis; E78.00 Pure hypercholesterolemia, unspecified; Z13.9 Encounter for screening, unspecified

== ENCOUNTER → 2024-12-19 08:32 | Outpatient (BNVA) | payer MEDICARE, SELFPAY | PROVIDERS: PCP Family Medicine; Visit Provider Family Medicine | DX: R73.03 Prediabetes (principal); F41.8 Other specified anxiety disorders; K21.9 Gastro-esophageal reflux disease without esophagitis; E78.00 Pure hypercholesterolemia, unspecified; Z79.899 Other long term (current) drug therapy; Z13.31 Encounter for screening for depression | CPT/HCPCS: 83036; 96127; 99212 ==

== ENCOUNTER 2025-03-27 07:43 | Outpatient (REF) | payer MEDICARE, SELFPAY ==
[2025-03-27 08:27] LABS: Appearance Urine Clear; Glucose Urine UA Negative (Negative); PH 5.5 (5.0-9.0); Specific Gravity - Urine 1.010 (1.005-1.025); UMIC TRIGGER UA YES
[2025-03-27 08:48] LABS: Alanine Aminotransferase 26 U/L (0-31); Albumin Level 4.3 g/dL (3.5-5.0); Alkaline Phosphatase 82 U/L (39-117); Anion Gap 10 (12-20); Aspartate Amino Transferase 26 U/L (5-31); Blood Urea Nitrogen 16 mg/dL (9-16); Calcium 9.3 mg/dL (8.4-10.2); Carbon Dioxide 29 mmol/L (22-29); Chloride 104 mmol/L (96-108); Cholesterol 174 mg/dL (<200); Estimated Glomerular Filt Rate > 60; HDL Cholesterol 38 mg/dL (>40); Potassium 4.4 mmol/L (3.3-5.1); Sodium 139 mmol/L (135-145); Total Protein 7.7 g/dL (6.5-8.0); Triglycerides 105 mg/dL (<150)
== END 2025-03-27 07:44 | disposition home or self-care (01) ==
LOC: HO.LAB 07:43
PROVIDERS: Visit Provider Family Medicine
DX: Z00.00 Encounter for general adult medical examination without abnormal findings (principal); R73.01 Impaired fasting glucose; Z13.6 Encounter for screening for cardiovascular disorders
CPT/HCPCS: 36415; 80053; 80061; 81001; 83036

== ENCOUNTER 2025-03-29 08:45 | Outpatient (AMB) | payer MEDICARE, SELFPAY ==
--- NOTE | 2025-03-29 08:57 | MHC.PC.OV ---
Vital Signs 03/29/25 08:59 Height 5 ft 7 in Weight 228 lb 4 oz BMI 35.7 BP 130/70 Blood Pressure Location Rt brachial Position Sitting Respiration 12 Pulse 95 Pulse Source Pulse Oximeter Temp 98.6 F Temp Source Oral Pulse Oximetry (%) 97 Oxygen Delivery Method Room Air Intake Visit Reasons: f/u pre-diabetes, labs Intake Note: patient is scheduled to follow up for dm and lab review Finish Repairer Required: No Allergies No Known Allergies Allergy (Verified 03/29/25 08:58) Medication List - Last Reconciled 03/29/25 by Leno Maurice MD acetaminophen 650 mg (2 x 325 mg) PO Q6H PRN 30 days calcium-magnesium 750-465 mg 1 tab PO DAILY cholecalciferol (vitamin D3) 50 mcg PO DAILY cyanocobalamin (vitamin B-12) (Vitamin B-12) 1,000 mcg PO DAILY fluoxetine 20 mg PO DAILY 90 days fluoxetine 40 mg PO DAILY 90 days gabapentin 200 mg (2 x 100 mg) PO BEDTIME 90 days lansoprazole 30 mg PO DAILY@0630 90 days lorazepam 0.5 mg PO DAILY PRN 30 days melatonin 10 mg PO BEDTIME Tobacco use date assessed: 12/19/24 Dental Screening Dental Screen Date: 12/19/24 HPI f/u pre-diabetes, labs HPI Details 65 y/o female presents to f/u pre-diabetes, labs. Labs drawn 03/27/25. Reviewed labs with pt. A1c 6.3%. Triglycerides 105. TC 174. LDL 115. HDL low at 38. Pt reports R ear tinnitus. HPI Comments History of Present Illness Details Documentation assistance for Leno Maurice MD, was provided by Neto Newton, Digital Marketing Coordinator on 03/29/2025 at 9:15 AM EST. [place], Dr. Maurice, have read, observed, and verified documentation. [facility] Medical History Trigger thumb, left thumb GERD (gastroesophageal reflux disease) Depression Neck strain Surgical History Status post surgery H/O colonoscopy S/P laparoscopic surgery Social History Housing: House Alcohol intake: current Alcohol intake frequency: a few times a month Alcohol type: wine and hard liquor Comment: Independent with ADLs, fall from dog pulling her. 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 Cognitive needs: No Hearing needs: No Vision needs: Yes Questionnaire Thrive Questionnaire Date Thrive assessed: 09/16/24 I am a: Patient What is your living situation today?: I have a steady place to live Within the past 12 months, did the food you bought not last and you didn't have the money to get more?: Never true Within the past 12 months, did you worry whether your food would run out before you got money to buy more?: Never true Do you have trouble paying for medicines?: No Do you have trouble getting transportation to medical appointments?: No Do you have trouble paying your heating and electricity bill?: No Do you have trouble taking care of your child, family member or friend?: No Do you have trouble with day-to-day activities such as bathing, preparing meals, shopping, managing finances, etc.?: No Are you currently unemployed and looking for a job?: No Are you interested in more education?: No Please select the resources that you would like help with: None Currently or been in a relationship where the following occur: No concerns reported THRIVE Score: 0 HERMINIO-7 AMB Questionnaire HERMINIO-7 Date HERMINIO - 7 assessed: 09/16/24 Source: Developed by Drs. Arnulfo Briseno, Nona Brady, Jeanmarie Urena and colleagues, with an educational vineet from [email or web address]. Review of Systems Const Denies chills, Denies fatigue, Denies fever(s), Denies headache(s) and Denies weakness ENT Denies dizziness and Denies headache(s) Card Denies dyspnea Resp Denies cough, Denies dyspnea, Denies wheezing and Denies other (shortness of breath) Musc Denies numbness and Denies tingling Neuro Denies dizziness, Denies headache(s), Denies numbness, Denies tingling and Denies weakness Psych Denies anxiety and Denies depression Endo Denies fatigue Aller/Immun Denies wheezing Physical exam (Primary Care) Vital Signs: Last Vital Signs Temp 98.6 F 03/29/25 08:59 Pulse 95 03/29/25 08:59 Resp 12 03/29/25 08:59 BP 130/70 03/29/25 08:59 Pulse Ox 97 03/29/25 08:59 Oxygen Delivery Method Room Air 03/29/25 08:59 BMI result Body Mass Index 35.7 Tobacco/Smoking Status: Tobacco use Status Tobacco use date assessed 12/19/24 03/29/25 08:57 Patient Tobacco Use Status Never used Tobacco 03/29/25 08:57 e-Cigarette/Vaping Use Never Used 03/29/25 08:57 Thrive Assessment: Date of Thrive Assessment Date Thrive assessed 09/16/24 03/29/25 08:57 Currently or been in a relationship where the following occur: No concerns reported Const General: well developed; No acute distress Nutritional Appearance: well nourished Orientation/consciousness: patient oriented x3 HENMT Head: Yes normocephalic and Yes atraumatic Eyes General: appearance normal, both eyes and all related structures Pupils: Equal, round and reactive pupils present EOM: EOMs intact bilaterally Resp Effort & Inspection: normal respiratory effort Neuro General: patient oriented x3 and gait normal Cranial nerves: Yes Equal, round and reactive pupils present Psych Affect: normal affect Coding Level of Care Code Est Pt Level 3 (78249) Diagnoses Prediabetes R73.03 Elevated LDL cholesterol level E78.00 Tinnitus, right H93.11 Assessment & Plan Assessment & Plan (1) Prediabetes: Code(s): R73.03 - Prediabetes Category: Medical Plan: A1c eder from 5.9% to 6.3%. Still in pre diabetes range but has worsened Work at a diet low in sugars and starches Encouraged exercise and weight loss She notes that she has been eating more candy bars lately and will also avoid these. Will follow-up in a few months (2) Elevated LDL cholesterol level: Code(s): E78.00 - Pure hypercholesterolemia, unspecified Category: Medical Plan: LDL cholesterol is above goal and HDL is slightly low As above, work on exercise Encouraged diet low in saturated fats and cholesterol Will recheck lipids in a few months (3) Tinnitus, right: Code(s): H93.11 - Tinnitus, right ear Category: Medical Plan: Right ear tinnitus and scarring at TM Hearing grossly intact Referred for hearing testing and to ENT Orders: Orders Hemoglobin A1c Today R73.01 - Impaired fasting glucose Comprehensive [place]. Panel Fast Today E78.00 - Pure hypercholesterolemia, unspecified, Z00.00 - Encounter for general adult medical examination without abnormal findings Lipid Panel Today E78.00 - Pure hypercholesterolemia, unspecified, Z00.00 - Encounter for general adult medical examination without abnormal findings Referrals Audiology Referral H93.11 - Tinnitus, right ear Ear/Nose/Throat Referral H93.11 - Tinnitus, right ear
[2025-03-29 08:59] VITALS: BP 130/70; PULSE 95; RESP 12; TEMP 37; O2SAT 97; BMI 35.7
== END 2025-03-29 09:28 | disposition home or self-care (01) ==
LOC: HO.HMCFM 08:46
PROVIDERS: PCP Family Medicine; Visit Provider Family Medicine
DX: R73.03 Prediabetes (principal); E78.00 Pure hypercholesterolemia, unspecified; H93.11 Tinnitus, right ear

== ENCOUNTER → 2025-03-29 08:45 | Outpatient (BNVA) | payer MEDICARE, SELFPAY | PROVIDERS: PCP Family Medicine; Visit Provider Family Medicine | DX: R73.03 Prediabetes (principal); R74.8 Abnormal levels of other serum enzymes; E78.00 Pure hypercholesterolemia, unspecified; H93.11 Tinnitus, right ear; R73.01 Impaired fasting glucose | CPT/HCPCS: 99212 ==